=== PATIENT | male | born 1945 | race Caucasian/White ===

== ENCOUNTER 2016-02-09 19:49 | Observation (INO) | payer MEDICARE ==
[2016-02-09] MEDS ORDERED: SODIUM CHLORIDE 0.9% 1,000 ML IV STA (20:03)
--- NOTE | 2016-02-09 20:06 | ED ---
General Adult HPI - General Chief complaint: Weakness Stated complaint: LETHARGIC Time Seen by Provider: 02/09/16 19:58 Source: patient, EMS, RN notes reviewed Mode of arrival: EMS Limitations: no limitations - History of Present Illness Initial comments: Patient is a pleasant 70-year-old male presenting to emergency Department with generalized weakness. Symptoms have progressed over the past week or more. Patient feels fatigued. Patient has lack of energy. Patient feels slightly confused. Reportedly had concerns of slurred speech a couple of days ago as well as some problems with remembering time. No cough. No reported fever. No complaints of pain or isolated area of weakness. - Related Data Home Medications Medication Instructions Recorded Confirmed ALPRAZolam [Xanax] 0.5 mg PO TID PRN 05/30/15 02/09/16 Escitalopram [Lexapro] 20 mg PO DAILY 05/30/15 02/09/16 Gabapentin [Neurontin] 300 mg PO TID 05/30/15 02/09/16 Pantoprazole Sodium [Protonix] 40 mg PO DAILY 02/09/16 02/09/16 diphenhydrAMINE HCL [Benadryl] 25 mg PO DAILY PRN 02/09/16 02/09/16 Previous Rx's Medication Instructions Recorded Clopidogrel [Plavix] 75 mg PO DAILY #30 tab 06/01/15 Allergies Allergy/AdvReac Type Severity Reaction Status Date / Time adhesive Allergy Rash/Hives Verified 02/09/16 21:14 iodine Allergy Rash/Hives Verified 02/09/16 21:14 lansoprazole [From Prevacid] Allergy Unknown Verified 02/09/16 21:14 morphine Allergy Anaphylaxis Verified 02/09/16 21:14 Review of Systems ROS Statement: Those systems with pertinent positive or pertinent negative responses have been documented in the HPI. ROS Other: All systems not noted in ROS Statement are negative. Constitutional: Denies: fever Eyes: Denies: eye pain ENT: Denies: ear pain Respiratory: Denies: cough, dyspnea Cardiovascular: Denies: chest pain, palpitations Endocrine: Reports: fatigue Gastrointestinal: Denies: abdominal pain Genitourinary: Denies: dysuria Musculoskeletal: Denies: back pain Skin: Denies: rash Neurological: Reports: confusion. Denies: headache Past Medical History Past Medical History: Cancer, GERD/Reflux, Hypertension Additional Past Medical History / Comment(s): renal cell cancer, only has left kidney History of Any Multi-Drug Resistant Organisms: None Reported Additional Past Surgical History / Comment(s): right kidney removed, stent in bilateral legs Past Anesthesia/Blood Transfusion Reactions: No Reported Reaction Past Psychological History: Anxiety Smoking Status: Current every day smoker Past Alcohol Use History: None Reported Past Drug Use History: None Reported - Past Family History Father Family Medical History: No Reported History Mother Family Medical History: No Reported History General Exam Limitations: no limitations General appearance: alert, in no apparent distress Head exam: Present: atraumatic, normocephalic Eye exam: Present: normal appearance, PERRL, EOMI ENT exam: Present: normal oropharynx Neck exam: Present: normal inspection. Absent: tenderness, meningismus Respiratory exam: Present: normal lung sounds bilaterally Cardiovascular Exam: Present: regular rate, normal rhythm GI/Abdominal exam: Present: soft. Absent: tenderness Extremities exam: Present: normal inspection Back exam: Present: normal inspection Neurological exam: Present: alert, oriented X3, CN II-XII intact. Absent: motor sensory deficit Expanded Patient oriented to: Present: person, place, time Cranial nerves: EOM's Intact: Normal Motor strength exam: RUE: 5, LUE: 5, RLE: 5, LLE: 5 Eye Response: (4) open spontaneously Motor Response: (6) obeys commands Verbal Response: (5) oriented Psychiatric exam: Present: normal affect, normal mood Skin exam: Absent: rash Course Vital Signs 02/09/16 02/09/16 20:01 21:14 Temperature 99.2 F Pulse Rate 100 77 Respiratory 20 18 Rate Blood Pressure 115/56 115/62 O2 Sat by Pulse 99 96 Oximetry Medical Decision Making - Medical Decision Making Patient reexamined and resting comfortably in bed. is present and provides further history consistent with early reports. Patient and family updated on results and plan. Case discussed with Dr. Dixon, who will admit covering for Dr. Pretty. - Lab Data Result diagrams: 02/09/16 20:10 02/09/16 20:10 Lab Results 02/09/16 02/09/16 02/09/16 Range/Units 20:10 20:10 20:10 WBC 14.8 H (3.8-10.6) k/uL RBC 4.15 L (4.30-5.90) m/uL Hgb 13.3 (13.0-17.5) gm/dL Hct 40.3 (39.0-53.0) % MCV 97.0 (80.0-100.0) fL MCH 32.0 (25.0-35.0) pg MCHC 33.0 (31.0-37.0) g/dL RDW 13.6 (11.5-15.5) % Plt Count 284 (150-450) k/uL Neutrophils % 78 % Lymphocytes % 13 % Monocytes % 6 % Eosinophils % 2 % Basophils % 0 % Neutrophils # 11.6 H (1.3-7.7) k/uL Lymphocytes # 1.8 (1.0-4.8) k/uL Monocytes # 0.9 (0-1.0) k/uL Eosinophils # 0.3 (0-0.7) k/uL Basophils # 0.1 (0-0.2) k/uL PT (9.0-12.0) sec INR (<1.1) APTT (22.0-30.0) sec Sodium 140 (137-145) mmol/L Potassium 4.0 (3.5-5.1) mmol/L Chloride 108 H (98-107) mmol/L Carbon Dioxide 21 L (22-30) mmol/L Anion Gap 11 mmol/L BUN 21 H (9-20) mg/dL Creatinine 1.50 H (0.66-1.25) mg/dL Est GFR (MDRD) Af Amer 56 (>60 ml/min/1.73 sqM) Est GFR (MDRD) Non-Af 46 (>60 ml/min/1.73 sqM) Glucose 116 H (74-99) mg/dL Calcium 8.1 L (8.4-10.2) mg/dL Phosphorus 1.9 L (2.5-4.5) mg/dL Magnesium 1.8 (1.6-2.3) mg/dL Total Bilirubin 0.6 (0.2-1.3) mg/dL AST 21 (17-59) U/L ALT 20 L (21-72) U/L Alkaline Phosphatase 74 (38-126) U/L Total Creatine Kinase 33 L (55-170) U/L CK-MB (CK-2) <0.2 (0.0-2.4) ng/mL CK-MB (CK-2) Rel Index Troponin I <0.012 (0.000-0.034) ng/mL Total Protein 5.5 L (6.3-8.2) g/dL Albumin 3.1 L (3.5-5.0) g/dL TSH 1.430 (0.465-4.680) mIU/L Free T4 0.78 (0.78-2.19) ng/dL Free T3 pg/mL 3.2 (2.8-5.3) pg/ml Urine Color Urine Appearance (Clear) Urine pH (5.0-8.0) Ur Specific [place] (1.001-1.035) Urine Protein (Negative) Urine Glucose (UA) (Negative) Urine Ketones (Negative) Urine Blood (Negative) Urine Nitrate (Negative) Urine Bilirubin (Negative) Urine Urobilinogen (<2.0) mg/dL Ur Leukocyte Esterase (Negative) 02/09/16 02/09/16 Range/Units 20:10 21:45 WBC (3.8-10.6) k/uL RBC (4.30-5.90) m/uL Hgb (13.0-17.5) gm/dL Hct (39.0-53.0) % MCV (80.0-100.0) fL MCH (25.0-35.0) pg MCHC (31.0-37.0) g/dL RDW (11.5-15.5) % Plt Count (150-450) k/uL Neutrophils % % Lymphocytes % % Monocytes % % Eosinophils % % Basophils % % Neutrophils # (1.3-7.7) k/uL Lymphocytes # (1.0-4.8) k/uL Monocytes # (0-1.0) k/uL Eosinophils # (0-0.7) k/uL Basophils # (0-0.2) k/uL PT 10.8 (9.0-12.0) sec INR 1.1 (<1.1) APTT 24.8 (22.0-30.0) sec Sodium (137-145) mmol/L Potassium (3.5-5.1) mmol/L Chloride (98-107) mmol/L Carbon Dioxide (22-30) mmol/L Anion Gap mmol/L BUN (9-20) mg/dL Creatinine (0.66-1.25) mg/dL Est GFR (MDRD) Af Amer (>60 ml/min/1.73 sqM) Est GFR (MDRD) Non-Af (>60 ml/min/1.73 sqM) Glucose (74-99) mg/dL Calcium (8.4-10.2) mg/dL Phosphorus (2.5-4.5) mg/dL Magnesium (1.6-2.3) mg/dL Total Bilirubin (0.2-1.3) mg/dL AST (17-59) U/L ALT (21-72) U/L Alkaline Phosphatase (38-126) U/L Total Creatine Kinase (55-170) U/L CK-MB (CK-2) (0.0-2.4) ng/mL CK-MB (CK-2) Rel Index Troponin I (0.000-0.034) ng/mL Total Protein (6.3-8.2) g/dL Albumin (3.5-5.0) g/dL TSH (0.465-4.680) mIU/L Free T4 (0.78-2.19) ng/dL Free T3 pg/mL (2.8-5.3) pg/ml Urine Color Light Yellow Urine Appearance Clear (Clear) Urine pH 5.5 (5.0-8.0) Ur Specific [place] 1.006 (1.001-1.035) Urine Protein Negative (Negative) Urine Glucose (UA) Negative (Negative) Urine Ketones Negative (Negative) Urine Blood Negative (Negative) Urine Nitrate Negative (Negative) Urine Bilirubin Negative (Negative) Urine Urobilinogen <2.0 (<2.0) mg/dL Ur Leukocyte Esterase Negative (Negative) - Radiology Data Radiology results: image reviewed (Computed tomography scan of the brain shows no acute process. Two-view chest x-ray shows no acute process.) Disposition Clinical Impression: Weakness Disposition: ADMITTED IP TO THIS HOSP
[2016-02-09 20:25] LABS: Basophils # (A) 0.1 k/uL (0-0.2); Basophils % (A) 0 %; CH 31.4; CHCM 32.5; Eosinophils # (A) 0.3 k/uL (0-0.7); Eosinophils % (A) 2 %; HCT 40.3 % (39.0-53.0); HDW 2.44; HGB 13.3 gm/dL (13.0-17.5); Luc # (Auto) 0.17; Luc % (Auto) 1; Lymphocytes # (A) 1.8 k/uL (1.0-4.8); Lymphocytes % (A) 13 %; Mean Platelet Volume 6.4; Monocytes # (A) 0.9 k/uL (0-1.0); Monocytes % (A) 6 %; Neutrophils # (A) 11.6 k/uL (1.3-7.7); Neutrophils % (A) 78 %; RBC 4.15 m/uL (4.30-5.90); RDW 13.6 % (11.5-15.5); WBC 14.8 k/uL (3.8-10.6); WBC (Perox) 15.95
[2016-02-09 20:36] LABS: Calcium 8.1 mg/dL (8.4-10.2); Magnesium 1.8 mg/dL (1.6-2.3); Phosphorous 1.9 mg/dL (2.5-4.5); Total Bilirubin 0.6 mg/dL (0.2-1.3); Total Protein 5.5 g/dL (6.3-8.2)
[2016-02-09 20:38] LABS: INR 1.1 (<1.1); Partial Thromboplastin Time 24.8 sec (22.0-30.0); Prothrombin Time 10.8 sec (9.0-12.0)
--- NOTE | 2016-02-09 20:53 | CT ---
EXAMINATION TYPE: CT brain wo con DATE OF EXAM: 02/09/2016 8:50 PM COMPARISON: Prior head CT's May HISTORY: Weakness, slurred speech and left sided facial droop. CT DLP: 1047.10 mGycm Automated exposure control for dose reduction was used. FINDINGS: There is no acute intracranial hemorrhage, mass effect, or midline shift identified. Periventricular white matter shows patchy low attenuation is prior exam, there is age-related cortical atrophy. 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 There are cerebral vascular calcifications prese nt. The ventricles and sulci are within normal limits in size. The globes are intact and the visuali zed sinuses are clear. IMPRESSION: No acute intracranial hemorrhage, mass effect, or midline shift is seen.
[2016-02-09 20:55] LABS: Creatine Kinase 33 U/L (55-170)
--- NOTE | 2016-02-09 20:58 | XR ---
EXAMINATION TYPE: XR chest 2V DATE OF EXAM: 02/09/2016 8:51 PM COMPARISON: Prior chest x-ray May HISTORY: Weakness TECHNIQUE: Frontal and lateral views of the chest are obtained. FINDINGS: There is no focal air space opacity, pleural effusion, or pneumothorax seen. The cardiac silhouette size is within normal limits. There are overlying cardiac leads. Biapical pleural thickeni ng again noted. The osseous structures are intact. IMPRESSION: No acute cardiopulmonary process.
[2016-02-09 21:07] LABS: Creatine Kinase MB <0.2 ng/mL (0.0-2.4); Troponin I <0.012 ng/mL (0.000-0.034)
[2016-02-09 21:58] LABS: Appearance,Urine Clear (Clear); Bilirubin,Urine Negative (Negative); Glucose,Urine (UA) Negative (Negative); Ketones,Urine Negative (Negative); Leukocyte Esterase,Urine Negative (Negative); Nitrite,Urine Negative (Negative); PH, Urine 5.5 (5.0-8.0); Protein,Urine Negative (Negative); Specific Gravity,Urine 1.006 (1.001-1.035); UA Billing (MACRO vs. MICRO) CHEM; Urobilinogen,Urine <2.0 mg/dL (<2.0)
[2016-02-09] MEDS ORDERED: ACETAMINOPHEN TAB 325 MG TAB PO PRN (22:22)
[2016-02-09] MEDS ORDERED: NALOXONE 0.4 MG/ML 1 ML VIAL IV PRN (22:22)
[2016-02-10] MEDS: SODIUM CHLORIDE 0.9% 1,000 ML IV SCH ×2 (00:46→13:58)
[2016-02-10] MEDS: POTAS-SOD-PHOS 278-164-250 MG 1 EACH PACKET PO SCH ×4 (00:58→22:46)
[2016-02-10 02:38] LABS: Creatine Kinase 31 U/L (55-170)
[2016-02-10 02:51] LABS: Creatine Kinase MB <0.2 ng/mL (0.0-2.4); Troponin I <0.012 ng/mL (0.000-0.034)
[2016-02-10 07:25] VITALS: RESP 16
--- NOTE | 2016-02-10 08:12 | XR ---
EXAMINATION TYPE: XR chest 2V DATE OF EXAM: 02/10/2016 7:27 AM HISTORY: Weakness. REFERENCE: Previous study dated 02/09/2016. FINDINGS: The lungs are clear. Pleural spaces are clear. Heart size is normal. IMPRESSION: NO ACUTE INTRATHORACIC ABNORMALITY.
[2016-02-10] MEDS ORDERED: FAMOTIDINE 20 MG TAB PO SCH (09:00)
[2016-02-10 09:06] LABS: Basophils # (A) 0.1 k/uL (0-0.2); Basophils % (A) 1 %; CH 31.2; CHCM 31.6; Eosinophils # (A) 0.4 k/uL (0-0.7); Eosinophils % (A) 4 %; HCT 43.5 % (39.0-53.0); HDW 2.45; HGB 13.8 gm/dL (13.0-17.5); Luc # (Auto) 0.18; Luc % (Auto) 2; Lymphocytes # (A) 2.1 k/uL (1.0-4.8); Lymphocytes % (A) 19 %; MCH 31.5 pg (25.0-35.0); MCHC 31.7 g/dL (31.0-37.0); MCV 99.2 fL (80.0-100.0); Mean Platelet Volume 6.5; Monocytes # (A) 0.6 k/uL (0-1.0); Monocytes % (A) 5 %; Neutrophils # (A) 7.9 k/uL (1.3-7.7); Neutrophils % (A) 70 %; RBC 4.39 m/uL (4.30-5.90); RDW 13.7 % (11.5-15.5); WBC 11.3 k/uL (3.8-10.6); WBC (Perox) 11.47
[2016-02-10 09:34] LABS: Creatine Kinase 33 U/L (55-170)
[2016-02-10 09:42] LABS: Creatine Kinase MB 0.2 ng/mL (0.0-2.4); Troponin I <0.012 ng/mL (0.000-0.034)
[2016-02-10 09:47] LABS: Calcium 8.5 mg/dL (8.4-10.2); Potassium 4.6 mmol/L (3.5-5.1); Total Bilirubin 0.4 mg/dL (0.2-1.3); Total Protein 6.2 g/dL (6.3-8.2)
[2016-02-10] MEDS: PANTOPRAZOLE 40 MG TABLET PO SCH (17:25)
[2016-02-10] MEDS: CLOPIDOGREL 75 MG TAB PO SCH (17:25)
[2016-02-10] MEDS: ALPRAZolam 0.5 MG TAB PO PRN ×2 (17:25→22:47)
[2016-02-10] MEDS: ESCITALOPRAM 20 MG TAB PO SCH (17:25)
[2016-02-10] MEDS: GABAPENTIN 300 MG CAP PO SCH ×2 (17:25→22:46)
--- NOTE | 2016-02-10 17:43 | US ---
EXAMINATION TYPE: US carotid duplex BILAT DATE OF EXAM: 02/10/2016 5:00 PM COMPARISON: See PACS CLINICAL HISTORY: Slurred speech. EXAM MEASUREMENTS: RIGHT: Peak Systolic Velocity (PSV) cm/sec ----- Right CCA: 49.1 ----- Right ICA: 67.2 ----- Right ECA: 73.2 ICA/CCA ratio: 1.4 RIGHT: End Diastole cm/sec ----- Right CCA: 9.7 ----- Right ICA: 21.0 ----- Right ECA: 12.5 LEFT: Peak Systolic Velocity (PSV) cm/sec ----- Left CCA: 62.2 ----- Left ICA: 68.8 ----- Left ECA: 72.7 ICA/CCA ratio: 1.1 LEFT: End Diastole cm/sec ----- Left CCA: 12.8 ----- Left ICA: 21.0 ----- Left ECA: 11.6 VERTEBRALS (direction of flow): Right Vertebral: Antegrade Left Vertebral: Antegrade TECHNOLOGIST IMPRESSION: No elevated velocities IMPRESSION: There is antegrade flow in the vertebral arteries. The images and measurements suggest 20% stenosis in both internal carotid arteries. Criteria for Assigning % of Stenosis / Diameter reduction (Estimation based on the indirect measurements of the internal carotid artery velocities (ICA PSV). 1. Normal (no stenosis)=ICA PSV < 125 cm/s: ratio < 2.0: ICA EDV<40 cm/s. 2. Less than 50% stenosis=ICA PSV < 125 cm/s: ratio < 2.0: ICA EDV<40 cm/s. 3. 50 to 69% stenosis=ICA PSV of 125 to 230 cm/s: ration 2.0 ? 4.0: ICA EDV 40-100 cm/s. 4. Greater than 70% stenosis to near occlusion= ICA PSV > 230 cm/s: ratio > 4.0: ICA EDV > 100 cm/s. 5. Near occlusion= ICA PSV velocities may be low or undetectable: variable ratio and ICA EDV. 6. Total occlusion=unable to detect flow.
--- NOTE | 2016-02-10 18:48 | P.CNNES ---
History of Present Illness Consult date: 02/10/16 Reason for Consult: Patient with generalized weakness and slurred speech. History of Present Illness: This patient is a 70-year-old right-handed white male who was brought into the emergency room with symptoms of generalized weakness and slurred speech. Patient states that over the last week he has been having episodes of intermittent slurred speech with confusion. On several occasions he has had difficulty getting his words out. He does have a history of having had TIAs in the past. Apparently in July of this year he was evaluated for TIA and has been taking Plavix 75 mg daily ever since. Patient states he continues to have episodes of slurred speech off and on even since admission to the hospital. He was seen in the emergency room by Dr. Celeste and was sent for a computed tomography scan of the brain. CAT scan of the brain revealed no acute intracranial hemorrhage or stroke. He was admitted to hospital for further evaluation. Patient states that his speech seems to wax and wane. There are times where it becomes hard for him to get his words out. He also has history of underlying anxiety disorder for which she uses Xanax. Occasionally when he gets anxious the speech also seems to be impaired. He denies any focal weakness in the arms and legs at this time. He also has a history of underlying neuropathy and apparently uses Neurontin 3 times a day for management. The patient does have regular follow-up with his primary care physician. He was sent for carotid ultrasound which was completed today. There is 20% stenosis in both internal carotid arteries. This is not significant occlusion to cause TIA symptoms for the patient at this time. We reviewed the results of these tests with the patient in detail. We will continue close neurological follow-up for the patient during this admission. Neurology is now been consulted for further evaluation and recommendations. Review of Systems Constitutional: Denies chills, Denies fever Eyes: denies blurred vision, denies pain Ears, nose, mouth and throat: Denies headache, Denies sore throat Cardiovascular: Denies chest pain, Denies shortness of breath Respiratory: Denies cough Gastrointestinal: Denies abdominal pain, Denies diarrhea, Denies nausea, Denies vomiting Musculoskeletal: Denies myalgias Integumentary: Denies pruritus, Denies rash Neurological: Reports aphasia, Reports change in speech, Denies numbness, Denies weakness Psychiatric: Reports anxiety attacks, Denies anxiety, Denies depression Endocrine: Denies fatigue, Denies weight change Past Medical History Past Medical History: Cancer, GERD/Reflux, Hypertension Additional Past Medical History / Comment(s): renal cell cancer, only has left kidney History of Any Multi-Drug Resistant Organisms: None Reported Additional Past Surgical History / Comment(s): right kidney removed, stent in bilateral legs Past Anesthesia/Blood Transfusion Reactions: No Reported Reaction Past Psychological History: Anxiety Smoking Status: Former smoker Past Alcohol Use History: None Reported Past Drug Use History: None Reported - Past Family History Father Family Medical History: No Reported History Mother Family Medical History: No Reported History Medications and Allergies Home Medications Medication Instructions Recorded Confirmed Type ALPRAZolam [Xanax] 0.5 mg PO TID PRN 05/30/15 02/09/16 History Escitalopram [Lexapro] 20 mg PO DAILY 05/30/15 02/09/16 History Gabapentin [Neurontin] 300 mg PO TID 05/30/15 02/09/16 History Pantoprazole Sodium [Protonix] 40 mg PO DAILY 02/09/16 02/09/16 History diphenhydrAMINE HCL [Benadryl] 25 mg PO DAILY PRN 02/09/16 02/09/16 History Allergies Allergy/AdvReac Type Severity Reaction Status Date / Time adhesive Allergy Rash/Hives Verified 02/09/16 21:14 iodine Allergy Rash/Hives Verified 02/09/16 21:14 lansoprazole [From Prevacid] Allergy Unknown Verified 02/09/16 21:14 morphine Allergy Anaphylaxis Verified 02/09/16 21:14 Physical Examination - Vital Signs Vital Signs: Vital Signs Temp Pulse Pulse Resp BP BP BP 02/10/16 15:00 98.2 F 80 16 166/92 02/10/16 07:00 97.7 F 70 16 140/70 02/10/16 00:00 97.6 F 66 18 135/66 02/09/16 23:09 83 18 132/70 02/09/16 22:34 69 18 125/62 Pulse Ox 02/10/16 15:00 98 02/10/16 07:00 96 02/10/16 00:00 98 02/09/16 23:09 97 02/09/16 22:34 96 Intake and Output 02/10/16 02/10/16 02/10/16 06:59 14:59 22:59 Intake Total 600 Balance 600 Intake: IV 600 Sodium Chloride 0.9% 1, 600 000 ml @ 75 mls/hr IV . [id number] [facility] Rx#:[id number] Other: Voiding Method Toilet # Voids 2 - Constitutional General appearance: average body habitus, cooperative - EENT EENT: PERRL, mucous membranes moist - Respiratory Respiratory: lungs clear - Cardiovascular Cardiovascular: regular rate, normal S1, normal S2 Extremities: no peripheral edema bilaterally - Gastrointestinal Gastrointestinal: normoactive bowel sounds - Integumentary Integumentary: normal - Neurologic Cranial nerve examination: PERRL, EOMI, VFF, V1/V2/V3 grossly intact, face symmetric, tongue midline, intact gag reflex, intact corneal reflex, normal palatal elevation Speech examination: intact Sensorimotor examination: intact Detailed motor examination: grossly full strength in all extremities Detailed sensory examination: intact Reflex and gait examination: intact Reflexes: 1+: ankle, bicep, knee, tricep - Musculoskeletal Musculoskeletal: no pain - Psychiatric Psychiatric: mood/affect appropriate, cooperative Results - Laboratory Findings CBC and BMP: 02/10/16 08:09 02/10/16 08:09 Abnormal Lab Findings: Abnormal Labs 02/10/16 02/10/16 02/10/16 02:06 08:09 08:09 WBC 11.3 H Neutrophils # 7.9 H BUN 23 H Creatinine 1.48 H Total Creatine Kinase 31 L Total Protein 6.2 L Albumin 3.4 L 02/10/16 08:09 WBC Neutrophils # BUN Creatinine Total Creatine Kinase 33 L Total Protein Albumin Assessment and Plan (1) Anxiety disorder Status: Acute Code(s): F41.9 - ANXIETY DISORDER, UNSPECIFIED (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 Over the past 1 week he has had intermittent aphasia and slurring of his speech. This seems to be waxing and waning. He was admitted to hospital for a complete stroke evaluation. He underwent computed tomography scan of the brain which was negative for any acute stroke or hemorrhage. He underwent carotid Doppler ultrasound today which is negative for any significant carotid artery stenosis. Patient's neurological examination at this time is nonfocal. He is currently on Plavix 75 mg daily for secondary stroke prevention. We recommend he continue on this. If he continues to have speech impairment with mild aphasia we would suggest at one baby aspirin to the Plavix for dual platelet therapy. His neurological examination otherwise is nonfocal at this time. We'll continue close neurological follow-up for the patient during this admission. Time with Patient: Greater than 30
[2016-02-10] MEDS ORDERED: CARBIDOPA-LEVODOPA 25-100 MG 1 EACH TAB PO SCH (22:00)
[2016-02-10] MEDS: HEPARIN SODIUM,PORCINE 5,000 UNIT/ML 1 ML VIAL SQ SCH (22:46)
[2016-02-11] MEDS: SODIUM CHLORIDE 0.9% 1,000 ML IV SCH ×2 (02:22→15:43)
--- NOTE | 2016-02-11 07:56 | HP ---
DATE OF ADMISSION: I am covering for Dr. Dario Pretty. His chief complaints are change in mental status and slurring of speech. HISTORY OF PRESENT ILLNESS: This is a 70-year-old gentleman with a past medical history of multiple medical problems including GERD, hypertension, history of renal cancer, history of right kidney removal, anxiety, being followed by Dr. Dario Pretty in the outpatient setting, was complaining of some change in mental status, dizziness and generalized weakness for the last several days. Patient came to [facility], admitted for further evaluation and treatment. Patient had a multiple TIA in the past and Neurology evaluation per Dr. Kinney who is evaluating the patient. The patient also had multiple lab abnormalities on admission including possibility of renal failure and high WBC. No evidence of any specific infection has been sought at this time. Urine has been negative. Chest x-ray also has been showing no acute abnormality. PAST MEDICAL HISTORY: History of GERD, history of hypertension, history of renal cancer, right kidney surgery, history of anxiety. Medications prior to admission include: 1. Benadryl 25 mg daily p.r.n. 2. Protonix 40 mg daily. 3. Neurontin 300 mg t.i.d. 4. Lexapro 20 mg daily. 5. Plavix 75 mg daily. 6. Xanax 0.5 t.i.d. p.r.n. Allergies are ADHESIVE, IODINE, PREVACID, MORPHINE. FAMILY HISTORY: No history of heart disease or strokes in the family. SOCIAL HISTORY: The patient used to smoke, no history of current smoke or alcohol intake. REVIEW OF SYSTEMS: ENT: No diminished hearing or diminished vision. CARDIOVASCULAR: No angina. RESPIRATORY: No cough. GI: No nausea. : No dysuria. NERVOUS SYSTEM: No numbness or weakness. ALLERGY/IMMUNOLOGY: No asthma or hayfever. MUSCULOSKELETAL: As mentioned earlier. DERMATOLOGY: Negative. RHEUMATOLOGY: Negative. ENDOCRINE: No history of diabetes or hypothyroidism. CONSTITUTIONAL: As mentioned earlier. PSYCHIATRY: As mentioned earlier. PHYSICAL EXAM: Patient is alert and oriented x3. The pulse is 80, blood pressure 116/92, respirations 16, temperature 98.2, pulse ox 98% on room air. HEENT: Conjunctivae normal. NECK: No jugular venous distension. CARDIOVASCULAR: S1, S2, muffled. RESPIRATORY: Breath sounds diminished at the bases. A few scattered rhonchi, no crackles. Abdomen is soft, nontender. No mass palpable. EXTREMITIES: Legs no edema, no swelling. NERVOUS SYSTEM: Higher function as mentioned earlier. Moves all 4 limbs. Mild diffuse weakness. Tone is also increased. LYMPHATICS: No lymph node enlargement the neck, groin or axillae. SKIN: No ulcer, rash or bleeding. Labs are WBC is 14.8 improved to 11.3, creatinine is 1.50 and glucose is 116. ASSESSMENT: 1. Change in mental status, possible acute transient ischemic attack. 2. Rule out metabolic encephalopathy. 3. Increased WBC, possibly reactive, improving. 4. Increased creatinine with possibly mild acute renal failure. 5. Mild hypoalbuminemia. 6. Gait dysfunction with multiple transient ischemic attacks. 7. Rule out acute Parkinsonian syndrome. 8. Gastroesophageal reflux disease. 9. Hypertension. 10. History of renal cancer. 11. History of anxiety. RECOMMENDATION: In this 70-year-old gentleman who presented with multiple complex medical issues, will monitor the patient closely. Continue with the current medications, continue with the symptomatic treatment. Continue with IV fluids. I would also recommend repeat UA, recommend antiplatelet agents. The patient is currently on Plavix at this time. Recommend Sinemet if okay with Dr. Dr. Cochran as well as PT, OT evaluation. Guarded prognosis. Further recommendations to follow.
[2016-02-11] MEDS ORDERED: FAMOTIDINE 20 MG TAB PO SCH (09:00)
[2016-02-11] MEDS: ALPRAZolam 0.5 MG TAB PO PRN (09:37)
[2016-02-11] MEDS: POTAS-SOD-PHOS 278-164-250 MG 1 EACH PACKET PO SCH (10:09)
[2016-02-11] MEDS: ESCITALOPRAM 20 MG TAB PO SCH (10:10)
[2016-02-11] MEDS: GABAPENTIN 300 MG CAP PO SCH (10:10)
[2016-02-11] MEDS: PANTOPRAZOLE 40 MG TABLET PO SCH (10:10)
[2016-02-11] MEDS: HEPARIN SODIUM,PORCINE 5,000 UNIT/ML 1 ML VIAL SQ SCH (10:10)
[2016-02-11] MEDS: CLOPIDOGREL 75 MG TAB PO SCH (10:10)
--- NOTE | 2016-02-11 10:12 | ECHOF ---
Referral Reason:dizziness MEASUREMENTS -------- HEIGHT: 177.8 cm WEIGHT: 69.0 kg BP: 161/96 RVIDd: 3.3 cm (< 3.3) IVSd: 1.2 cm (0.6 - 1.1) LVIDd: 3.8 cm (3.9 - 5.3) LVPWd: 1.0 cm (0.6 - 1.1) IVSs: 1.8 cm LVIDs: 2.6 cm LVPWs: 1.7 cm LA Diam: 2.9 cm (2.7 - 3.8) LAESV Index (A-L): 27.36 ml/m Ao Diam: 3.4 cm (2.0 - 3.7) AV Cusp: 2.1 cm (1.5 - 2.6) MV EXCURSION: 15.228 mm (> 18.000) MV EF SLOPE: 103 mm/s (70 - 150) EPSS: 1.1 cm MV E Theo: 0.76 m/s MV DecT: 143 ms MV A Theo: 0.89 m/s MV E/A Ratio: 0.85 FINDINGS -------- Sinus rhythm. This was a technically good study. The left ventricular size is normal. There is borderline concentric left ventricular hypertrophy. Overall left ventricular systolic function is normal with, an EF between 60 - 65 %. The right ventricle is mildly enlarged. The left atrium is normal in size. Normal LA size by volume 22+/-6 ml/m2. The right atrium is normal in size. The aortic valve is trileaflet and appears structurally normal. There is mild aortic regurgitation. Mild mitral regurgitation is present. The tricuspid valve appears structurally normal. No regurgitation noted The pulmonic valve was not well visualized. The aortic root size is normal. Normal inferior vena cava with normal inspiratory collapse consistent with estimated right atrial pressure of 5 mmHg. There is no pericardial effusion. CONCLUSIONS -------- 1. Sinus rhythm. 2. There is mild aortic regurgitation. 3. Mild mitral regurgitation is present. 4. The tricuspid valve appears structurally normal. 5. No regurgitation noted 6. The pulmonic valve was not well visualized. 7. The aortic root size is normal. 8. Normal inferior vena cava with normal inspiratory collapse consistent with estimated right atrial pressure of 5 mmHg. 9. There is no pericardial effusion. 10. This was a technically good study. 11. The left ventricular size is normal. 12. There is borderline concentric left ventricular hypertrophy. 13. Overall left ventricular systolic function is normal with, an EF between 60 - 65 %. 14. The right ventricle is mildly enlarged. 15. Normal LA size by volume 22+/-6 ml/m2. 16. The right atrium is normal in size. 17. The aortic valve is trileaflet and appears structurally normal. STAMP MAKER: Radha Hurd RDCS
[2016-02-11] MEDS ORDERED: MULTIVITAMINS, THERA 1 EACH TAB PO SCH (12:00)
[2016-02-11] MEDS ORDERED: FOLIC ACID 1 MG TAB PO SCH (12:00)
[2016-02-11] MEDS ORDERED: THIAMINE 100 MG TAB PO SCH (12:00)
[2016-02-11 15:33] VITALS: BP 180/94; PULSE 82; TEMP 97.2
--- NOTE | 2016-02-12 14:54 | DS ---
DATE OF ADMISSION: 02/09/2016 DATE OF DISCHARGE: 02/11/2016 FINAL DIAGNOSES: 1. Generalized weakness and tiredness, possible acute transient ischemic attack. 2. Possible metabolic encephalopathy. 3. Increased WBC, possibly reactive, improved. 4. Anxiety. 5. Increased creatinine with possible mild acute renal failure. 6. Mild hypoalbuminemia. 7. Gait dysfunction with multiple transient ischemic attacks. 8. Parkinsonian features, unlikely Dr. Kinney. 9. Gastroesophageal reflux disease. 10. Hypertension. 11. History of renal cancer. 12. History of anxiety. 13. Gait dysfunction. 14. FULL CODE. DISCHARGE DISPOSITION: The patient will be discharged in stable condition with guarded prognosis. Discharge cleared by Dr. Kinney. HISTORY OF PRESENT ILLNESS: This 70-year-old gentleman with a past medical history of multiple medical problems including weakness and tiredness, possible transient ischemic attack was considered. Treated symptomatically. Antiplatelets given. The patient improved significantly. Neurovascular workup was negative. On exam, vitals are stable. CARDIOVASCULAR: S1, S2. ABDOMEN: Soft. NERVOUS SYSTEM: No focal deficits. DISCHARGE ADVICE: 1. Diet is cardiac. 2. Activity limited until follow up. 3. Follow up with Dr. Dario Pretty in 2 to 3 days. 4. Follow with Dr. Bessie Kinney as advised. MEDICATIONS: 1. Xanax 0.5 p.o. t.i.d. p.r.n. 2. Ecotrin 81 mg p.o. daily. 3. Plavix 75 mg p.o. daily. 4. Lexapro 20 mg daily. 5. Folic acid 1 mg. 6. Neurontin 300 mg t.i.d. 7. Multivitamin 1 p.o. daily. 8. Protonix 40 mg daily. 9. Thiamine 100 mg p.o. daily. 10. Stop Benadryl.
== END 2016-02-11 16:51 | disposition home or self-care (01) ==
LOC: EC 19:49 → INTOOBSV 22:22 → 4MS4W 22:22
PROVIDERS: ADMIT Internal Medicine; ATTEND Internal Medicine
DX: G45.9 Transient cerebral ischemic attack, unspecified (principal); R26.9 Unspecified abnormalities of gait and mobility; F41.9 Anxiety disorder, unspecified; E88.09 Other disorders of plasma-protein metabolism, not elsewhere classified; K21.9 Gastro-esophageal reflux disease without esophagitis; I10 Essential (primary) hypertension; Z85.528 Personal history of other malignant neoplasm of kidney; F17.200 Nicotine dependence, unspecified, uncomplicated; I69.920 Aphasia following unspecified cerebrovascular disease; R47.01 Aphasia; Z79.02 Long term (current) use of antithrombotics/antiplatelets; R53.1 Weakness; Z88.5 Allergy status to narcotic agent; Z88.8 Allergy status to other drugs, medicaments and biological substances
CPT/HCPCS: 99285; 96360; 96361 ×2; 36415; 93306; 97161; 84439; 84481; 80053 ×2; 82550 ×2; 82553 ×2; 83735; 84100; 84443; 84484 ×2; 85025 ×2; 85610; 85730; 81003; 87086; 71020 ×2; 93880; 70450; G0378 ×3; J1644 ×2; 96372

== ENCOUNTER → 2016-05-20 | Outpatient (CLI) | payer MEDICARE ==
--- NOTE | 2016-05-20 08:12 | US ---
EXAMINATION TYPE: US duplex aorta DATE OF EXAM: 05/20/2016 7:11 AM COMPARISON: NONE CLINICAL HISTORY: Z13.9 SCREENING FOR DISORDER. EXAM MEASUREMENTS: Abdominal Aorta: Proximal: 2.0 x 1.8 cm Mid: 1.5 x 1.8 cm Distal: 1.4 x 2.4 cm Bifurcation: Right- 0.8 x 0.9 cm Left- 0.7 x 0.9 cm No AAA visualized IMPRESSION: THIS EXAMINATION IS NEGATIVE FOR AORTIC ANEURYSM AT THIS TIME.
== END | disposition home or self-care (01) ==
LOC: RADUSWWP 06:46
PROVIDERS: ATTEND Family Medicine
DX: Z13.89 Encounter for screening for other disorder (principal)
CPT/HCPCS: 93979

== ENCOUNTER → 2016-08-03 | Outpatient (CLI) | payer MEDICARE ==
--- NOTE | 2016-08-03 12:57 | MR ---
EXAMINATION TYPE: MR brain wo/w con DATE OF EXAM: 08/03/2016 12:30 PM COMPARISON: NONE HISTORY: Parkinson's Disease TECHNIQUE: Multiplanar, multiecho imaging of the brain was obtained with and without intravenous adm inistration of 15 mL intravenous MultiHance. FINDINGS: Midline structures are unremarkable. There is a normal craniocervical junction. Echoplanar diffusion imaging demonstrates mildly restricted diffusion in the globus pallidus bilatera lly. There is mild, chronic mucoperiosteal thickening involving the ethmoid and frontal sinuses. The orbits are normal. There are normal vascular flow voids. There is diffuse and punctate periventricular white matter change compatible with a combination of sm all vessel disease and chronic ischemic change. There is no mass effect, midline shift or intracrania l blood. Following intravenous administration of gadolinium, I do not see evidence of abnormal enhancement. IMPRESSION: 1. SUBTLE RESTRICTED DIFFUSION IN THE GLOBUS PALLIDUS BILATERALLY. THE DIFFERENTIAL DIAGNOSIS FOR THI S FINDING IS LAST INCLUDING TOXIC EXPOSURE, I: HYPERGLYCEMIA. SEVERAL DEGENERATIVE CONDITION SUCH NEURODEGENERATION WITH BRAIN IRON ACCUMULATION AND CREUTZFELDT-HALI DISEASE CAN ALSO CAUSE THIS FIND ING. 2. BOTH PUNCTATE AND CONFLUENT PERIVENTRICULAR WHITE MATTER DISEASE LIKELY REPRESENTS A COMBINATION O F SMALL VESSEL DISEASE AND CHRONIC ISCHEMIC CHANGE. 3. MILD, CHRONIC MUCOPERIOSTEAL THICKENING INVOLVING THE ETHMOID AND FRONTAL SINUSES.
== END | disposition home or self-care (01) ==
LOC: RADMRIMAIN 11:00
PROVIDERS: ATTEND Psychiatry & Neurology Neurology
DX: A81.00 Creutzfeldt-Jakob disease, unspecified (principal); F45.8 Other somatoform disorders; R90.82 White matter disease, unspecified; R73.9 Hyperglycemia, unspecified; Z85.528 Personal history of other malignant neoplasm of kidney; Z13.89 Encounter for screening for other disorder
CPT/HCPCS: 82565; 70553; A9577

== ENCOUNTER → 2017-03-24 | Outpatient (CLI) | payer MEDICARE ==
--- NOTE | 2017-03-24 16:21 | NM ---
EXAMINATION TYPE: NM DatScan Brain SPECT DATE OF EXAM: 03/24/2017 COMPARISON: Correlation MRI brain 08/03/2016 HISTORY: 71-year-old male Parkinson's disease. TECHNIQUE: 10 drops of Lugol's solution was administered 1 hour prior to injection as a thyroid bloc yenny agent. After the administration of 4.74 mCi I-123 Ioflupane DaTscan. Images obtained 3 hours p ost injection. SPECT images of the brain were acquired with axial and coronal reconstructions. FINDINGS: The axial SPECT images demonstrate small and markedly blunted activity of the bilateral corpus striat a. IMPRESSION: Abnormal appearance highly suggestive of idiopathic Parkinson's disease or Parkinsonian syndrome.
== END | disposition home or self-care (01) ==
LOC: RADNMMAIN 10:05
PROVIDERS: ATTEND Psychiatry & Neurology Neurology
DX: G20 Parkinson's disease (principal)
CPT/HCPCS: 78607; A9584

== ENCOUNTER → 2017-04-10 | Outpatient (CLI) | payer MEDICARE ==
--- NOTE | 2017-04-10 21:59 | MR ---
EXAMINATION TYPE: MR lumbar spine wo con DATE OF EXAM: 04/10/2017 COMPARISON: NONE HISTORY: Low Back Pain with difficulty Walking per patient. Lumbar spine intervertebral disc degenera tion are ordered. TECHNIQUE: Multiplanar, multisequence imaging of the lumbar spine is performed without IV contrast. FINDINGS: Sagittal images of the lumbar spine show vertebral body heights and alignment to appear sat isfactory. Multilevel disc desiccation is seen. Disc space heights are fairly well-maintained. No lar ge posterior disc herniations are seen on sagittal images. The conus medullaris is normal in position and signal ending at mid L1 level. This area is diminished T1 and T2 signal involving the posterior superior L5 endplate of uncertain etiology, findings more prominent on T1-weighted images. Axial images at the T12-L1 level shows mild broad-based disc bulge mildly effaces the anterior thecal sac, bilateral neural foramina are patent. Axial images at L1-L2 level show mild broad disc bulge mildly effaces the anterior thecal sac/25, tracie ateral neural foramina are patent. Axial images at L2-L3 level show mild to moderate broad disc bulge with right extraforaminal disc pro trusion component and axial image 20. There is mild effacement of the anterior thecal sac. Bilateral neural foramina remain patent. Axial images at L3-L4 levels mild broad disc bulge with right foraminal disc protrusion component min imally effacing the anterior thecal sac. Right-sided neural foramina is mildly narrowed. Left-sided n eural foramen is patent. Axial images at L4-L5 levels and mild broad disc bulge and mild facet degenerative changes bilaterall y. There is mild effacement of the anterior thecal sac. There is mild right greater than left neural foraminal narrowing. Axial images at L5-S1 level shows central disc protrusion but the spinal canal is preserved and bilat eral neural foramina are patent. There are dependent small gallstones or gallbladder sludge in gallbladder. There is suspected asymmet jesika end-stage atrophy of the right kidney. There is some cortical thinning in the visualized right ki dney. There is partial visualization of believed subcentimeter simple cyst posteriorly left kidney ax ial image 18. IMPRESSION: Multilevel degenerative changes in lumbar spine as detailed above. Suspected end-stage at rophy of right kidney. If this is not known finding further investigation with renal ultrasound would be advised to confirm. Unusual appearance to posterior aspect superior L5 endplate, consider correla tion with plain films and/or CT to further evaluate this level.
== END | disposition home or self-care (01) ==
LOC: RADMRIMAIN 21:15
PROVIDERS: ATTEND Family Medicine
DX: M47.816 Spondylosis without myelopathy or radiculopathy, lumbar region (principal)
CPT/HCPCS: 72148

== ENCOUNTER → 2017-05-03 | Outpatient (CLI) | payer MEDICARE ==
--- NOTE | 2017-05-03 08:57 | CT ---
"EXAMINATION TYPE: CT abdomen pelvis wo con DATE OF EXAM: 05/03/2017 COMPARISON: NONE HISTORY: Right upper quadrant pain CT DLP: 791 mGycm Examination of the solid and hollow viscera is limited given the lack of contrast. FINDINGS: LUNG BASES: Partially imaged the pleural-based left lower lobe mass measuring at least 3.6 x 3.9 cm. Mass is suspicious for a neoplasm. CT of the chest is recommended for further evaluation. LIVER/GB: The gallbladder is unremarkable. No space-occupying hepatic lesion. PANCREAS: No pancreatic mass identified. No inflammatory process seen. SPLEEN: No evidence for splenomegaly. No intrasplenic lesions seen. ADRENALS: Suspicious left adrenal nodule measuring 2.4 x 2.0 cm. No right-sided adrenal nodules seen. KIDNEYS: Right-sided nephrectomy changes. Ill-defined 7 mm hypoattenuating lesion lower pole left ki dney is nonspecific. No nephrolithiasis. No hydronephrosis. BOWEL: Appendix has a normal appearance. No evidence of bowel obstruction. No inflammatory process. Lymph nodes: No evidence for adenopathy greater than 1 cm. Abdominal aorta: Atheromatous changes seen. No evidence for aneurysm. Genital organs: No significant abnormality. Other: Expansile left iliac lesion adjacent to the SI joint. Superior endplate mild compression fract ure of L5. 4 mm of bony retropulsion noted. Disc bulge is seen. Suspect bilateral lateral recess sten osis. IMPRESSION: 1.Partially imaged the pleural-based left lower lobe mass measuring at least 3.6 x 3.9 cm. Mass is phelps spicious for a neoplasm. CT of the chest is recommended for further evaluation. 2. Left adrenal nodule. Metastatic lesion is not excluded. 3. Expansile left iliac lesion. 4. Mild superior endplate compression fracture of L5. See above. A Yellow level critical message alert has been initiated for Ramila Nolan MD via the [employer] | Critical Results System on 05/03/2017 8:55 AM. This message alert has been sent to Ramila Fuller MD via the preferences provided by the clinician for the receipt of Radiology Critical Findi ngs. Message ID [id number]."
--- NOTE | 2017-05-03 09:22 | US ---
EXAMINATION TYPE: US gallbladder DATE OF EXAM: 05/03/2017 COMPARISON: NONE CLINICAL HISTORY: 71-year-old male R10.11 RUQ abdominal pain. 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 Technique: Multiple sonographic images of the right upper quadrant are obtained. FINDINGS: WELFARE SUPERVISOR NOTES: Extremely limited and difficult exam due to overlying bowel gas and patient's inab ility to turn onto his side or hold his breath. Liver Length: 11.7 cm Gallbladder Wall: 0.2 cm CBD: 0.4 cm Right Kidney: Surgically absent Pancreas: Obscured by bowel gas, visualized pancreatic body shows show no abnormality Liver: Limited visualization due to overlying bowel gas, visualized portions appears somewhat hypoec hoic with possible starry sharon appearance. Gallbladder: wnl as visualized, limited visualization due to overlying bowel gas Evidence for sonographic Carey's sign: No CBD: wnl as visualized, distal portion is obscured by bowel gas Right Kidney: Surgically absent IMPRESSION: 1. Technical limitations as above. 2. Somewhat hypoechoic appearance to the liver with possible starry sharon appearance. Correlate to excl ude hepatitis. 3. Status post right nephrectomy.
--- NOTE | 2017-05-05 15:19 | P.PN ---
Progress Note - Text Progress Note Date: 05/05/[address] of the abdomen pelvis was reviewed. Findings highly suspicious for a lung malignancy with metastases. I contacted the patient's primary care doctor Dr. Dario Pretty and spoke with Ashley as Dr. Pretty is out of town. Findings of possible lung cancer reviewed. Patient will follow-up with his primary care provider. Otherwise no gallstones identified. Message left on patient's phone to follow with primary care provider for additional workup.
== END | disposition home or self-care (01) ==
LOC: RADUSMAIN 07:51
PROVIDERS: ATTEND Surgery Plastic and Reconstructive Surgery
DX: E27.8 Other specified disorders of adrenal gland (principal); Z90.5 Acquired absence of kidney
CPT/HCPCS: 74176; 76705

== ENCOUNTER → 2017-05-10 | Outpatient (CLI) | payer MEDICARE ==
--- NOTE | 2017-05-11 09:30 | CT ---
"EXAMINATION TYPE: CT chest wo con DATE OF EXAM: 05/10/2017 COMPARISON: NONE HISTORY: Abnormal finding of lung CT DLP: 627 mGycm. Automated Exposure Control for Dose Reduction was Utilized. TECHNIQUE: CT scan of the thorax is performed without IV contrast. FINDINGS: LUNGS: There is biapical pleural-parenchymal nodular thickening. Mild to moderate centrilobular emphy sematous changes are appreciated. There is a 4.3 x 3.8 cm multilobulated left lower lobe pulmonary ma ss with associated adjacent 6 mm satellite nodule directly posterior medially. Surrounding groundglas s opacity likely represents atelectasis. Calcified granuloma is noted within the left upper lobe. Par aseptal bleb is seen medially within the left upper lobe. Linear nodular opacity within the right upp er lobe on series 4 image 17 measures 6 mm and is favored to represent scarring rather than a true pu lmonary nodule given its linear morphology. Additional linear area of scarring is seen within the rig ht middle lobe on image 38. Right basilar subsegmental atelectasis is identified. Main tracheobronchi al tree is patent. MEDIASTINUM: Lack of IV contrast is noted to limit evaluation for mediastinal and especially hilar ad enopathy. Centrally necrotic 1.6 cm short axis left infrahilar probable lymph node is seen adjacent t o pulmonary vasculature. Within the remainder of the mediastinum there are no definitive greater than 1 cm hilar or mediastinal lymph nodes. No cardiomegaly or pericardial effusion is seen. Ascending thoracic aorta is within normal limits of size measuring 3.4 cm. OTHER: The right kidney is surgically absent and surgical clips are seen within the right retroperito neum. There is a 2.7 cm indeterminate left adrenal gland nodule. Descending duodenal diverticulum is also noted. Moderate atheromatous changes of the abdominal aorta seen. Mild multilevel degenerative c hanges of thoracic spine are noted. IMPRESSION: 1. 4.3 x 3.8 cm left lower lobe pulmonary mass with adjacent 6 mm satellite nodule that should be con sidered neoplasm until proven otherwise. Percutaneous biopsy and/or PET CT could be performed for def initive diagnosis. 2. Left infrahilar adenopathy suspicious for malignant adenopathy. No contralateral or supraclavicula r adenopathy. 3. 2.7 cm indeterminate left adrenal gland nodule. Further characterization with adrenal mass protoco l CT abdomen or MR could be performed. A Yellow level critical message alert has been initiated for Dario Pretty MD via the [employer] | Critical Results System on 05/11/2017 9:27 AM. This message alert has been sent to Dario Pretty MD via the preferences provided by the clinician for the receipt of Radiology Critical Findings. Mess age ID [id number]."
== END | disposition home or self-care (01) ==
LOC: RADCTMAIN 18:22
PROVIDERS: ATTEND Family Medicine
DX: R91.8 Other nonspecific abnormal finding of lung field (principal); R59.0 Localized enlarged lymph nodes; Z88.5 Allergy status to narcotic agent; Z91.041 Radiographic dye allergy status
CPT/HCPCS: 71250

== ENCOUNTER 2017-05-16 11:10 | Inpatient (IN) | payer MEDICARE ==
[2017-05-16] MEDS ORDERED: SODIUM CHLORIDE 0.9% 1,000 ML IV STA (12:19)
[2017-05-16 12:57] LABS: Basophils % (A) 0 %; Eosinophils % (A) 0 %; HCT 41.5 % (39.0-53.0); HGB 13.9 gm/dL (13.0-17.5); Lymphocytes # (A) 0.8 k/uL (1.0-4.8); Lymphocytes % (A) 8 %; MCH 30.4 pg (25.0-35.0); MCHC 33.5 g/dL (31.0-37.0); MCV 90.8 fL (80.0-100.0); Mean Platelet Volume 6.8; Monocytes # (A) 0.5 k/uL (0-1.0); Monocytes % (A) 5 %; Neutrophils # (A) 8.6 k/uL (1.3-7.7); Neutrophils % (A) 86 %; Platelet Count 302 k/uL (150-450); RBC 4.57 m/uL (4.30-5.90); RDW 13.8 % (11.5-15.5)
[2017-05-16 13:04] LABS: INR 1.1 (<1.2); Ionized Calcium 5.1 mg/dL (4.5-5.3); Partial Thromboplastin Time 23.6 sec (22.0-30.0); Prothrombin Time 10.5 sec (9.0-12.0)
[2017-05-16 13:12] LABS: Albumin 3.4 g/dL (3.5-5.0); Phosphorus 2.2 mg/dL (2.5-4.5); Potassium 4.5 mmol/L (3.5-5.1); Total Bilirubin 0.8 mg/dL (0.2-1.3); Total Protein 6.1 g/dL (6.3-8.2)
[2017-05-16 13:16] LABS: Creatine Kinase 34 U/L (55-170)
[2017-05-16 13:17] LABS: Appearance,Urine Clear (Clear); Bilirubin,Urine Negative (Negative); Blood,Urine Negative (Negative); Color,Urine Yellow; Glucose,Urine (UA) Negative (Negative); Ketones,Urine Negative (Negative); Leukocyte Esterase,Urine Negative (Negative); Nitrite,Urine Negative (Negative); PH, Urine 5.5 (5.0-8.0); Protein,Urine Negative (Negative); Specific Gravity,Urine 1.012 (1.001-1.035)
[2017-05-16 13:29] LABS: Creatine Kinase MB 0.5 ng/mL (0.0-2.4); Troponin I <0.012 ng/mL (0.000-0.034)
--- NOTE | 2017-05-16 13:38 | CT ---
EXAMINATION TYPE: CT brain wo con DATE OF EXAM: 05/16/2017 COMPARISON: 03/07/2016 HISTORY: Altered mental status CT DLP: 1017.[address] of the brain was performed. The ventricles, basal cisterns and sulci overlying the cerebral convexities demonstrate mild enlargem ent. There is no evidence for intracranial hemorrhage. Vasogenic edema within the left parietal-occipital region with underlying mass noted on image 23 suzy uring 1.7 cm. Additional area of decreased attenuation posterior right gaffney radiata could reflect a dditional vasogenic edema. Recommend MRI for evaluation of metastatic disease. There is decreased attenuation about the periventricular white matter and deep white matter of both c erebral hemispheres, compatible with chronic small vessel ischemia. Differential diagnosis does inclu de demyelination. No midline shift. Osseous calvarium is intact. IMPRESSION: 1. Findings compatible with metastatic disease with at least one lesion visualized. Recommend MRI for further characterization and to evaluate for additional lesions.
--- NOTE | 2017-05-16 14:57 | XR ---
EXAMINATION TYPE: XR ribs RT w pa chest xray DATE OF EXAM: 05/16/2017 COMPARISON: 11/28/2016 HISTORY: 71-year-old male right-sided rib and back pain TECHNIQUE: PA and lateral views FINDINGS: Mild diffuse interstitial prominence is unchanged. Heart remains upper limits of normal in size. Biap ical pleural parenchymal scarring. No consolidation, pneumothorax, or pleural effusion. No displaced right rib fracture seen. Multiple surgical clips in the right upper quadrant. Patient's known left lower lobe mass is subtly apparent. IMPRESSION: 1. Patient's known left lower lobe mass is subtly apparent in the retrocardiac region. 2. Chronic changes without acute cardiopulmonary process seen. 3. No displaced right rib fracture identified.
--- NOTE | 2017-05-16 14:59 | XR ---
EXAMINATION TYPE: XR thoracic spine 2V DATE OF EXAM: 05/16/2017 COMPARISON: None HISTORY: 71-year-old male right-sided rib and back pain TECHNIQUE: 4 views FINDINGS: Leftward truncal shift. 12 rib-bearing thoracic vertebral bodies. All pedicles are visualized. There is a moderate vertebral compression deformity along the lower thoracic spine which is new as compared to 05/10/2017 probably involving T11. IMPRESSION: New moderate vertebral compression deformity of a lower thoracic vertebral body, probably T11. This i s new as compared to the CT of 05/10/2017. Osteoporotic, posttraumatic, and pathologic fractures are al l in the differential.
[2017-05-16] MEDS ORDERED: KETOROLAC 30 MG/ML 1 ML VIAL IVP STA (15:40)
[2017-05-16] MEDS ORDERED: DEXAMETHASONE SOD PHOSPHATE 10 MG/ML 1 ML VIAL IV STA (15:40)
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
[2017-05-16] MEDS ORDERED: ACETAMINOPHEN TAB 325 MG TAB PO PRN (15:41)
[2017-05-16] MEDS ORDERED: NALOXONE 0.4 MG/ML 1 ML VIAL IV PRN (15:41)
[2017-05-16] MEDS ORDERED: ONDANSETRON 4 MG/2 ML VIAL IVP PRN (15:41)
[2017-05-16] MEDS: ATORVASTATIN 40 MG TAB PO SCH (20:04)
[2017-05-16] MEDS: PRAMIPEXOLE 0.5 MG TAB PO SCH ×2 (20:04→22:27)
[2017-05-16] MEDS: GABAPENTIN 300 MG CAP PO SCH ×2 (20:04→22:26)
[2017-05-16] MEDS: CYCLOBENZAPRINE 5 MG TAB PO SCH (20:05)
[2017-05-16] MEDS: MEMANTINE 10 MG TAB PO SCH (20:05)
[2017-05-16] MEDS: DEXAMETHASONE SOD PHOSPHATE 4 MG/ML 1 ML VIAL IV SCH (23:33)
[2017-05-17] MEDS: DEXAMETHASONE SOD PHOSPHATE 4 MG/ML 1 ML VIAL IV SCH ×3 (05:37→17:51)
[2017-05-17] MEDS: CYCLOBENZAPRINE 5 MG TAB PO SCH ×2 (08:46→20:15)
[2017-05-17] MEDS: FERROUS SULFATE 325 MG TAB PO SCH (08:46)
[2017-05-17] MEDS: ESCITALOPRAM 20 MG TAB PO SCH (08:46)
[2017-05-17] MEDS: PANTOPRAZOLE 40 MG TABLET PO SCH (08:47)
[2017-05-17] MEDS: GABAPENTIN 300 MG CAP PO SCH ×3 (08:47→22:36)
[2017-05-17] MEDS: MEMANTINE 10 MG TAB PO SCH ×2 (08:47→20:15)
[2017-05-17] MEDS: PRAMIPEXOLE 0.5 MG TAB PO SCH ×3 (08:47→22:36)
[2017-05-17] MEDS ORDERED: ASPIRIN 81 MG PO SCH (09:00)
[2017-05-17] MEDS ORDERED: ENOXAPARIN 40 MG/0.4 ML SYRINGE SQ SCH (09:00)
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
--- NOTE | 2017-05-17 12:41 | P.CNPUL ---
History of Present Illness Consult date: 05/17/17 Requesting physician: Dario Pretty Reason for consult: abnormal CXR/CT Chief complaint: Hallucinations, fall History of present illness: This is a very pleasant 71-year-old gentleman who follows with Dr. Pretty as his primary care physician. He has a history of dementia, Parkinson's disease, hyperlipidemia, hypertension, right renal cell cancer with nephrectomy status post chemo/radiation, anemia, peripheral vascular disease with bilateral stents , CVA/TIA. He was also found to have an abnormal chest x-ray in the outpatient setting and subsequent computed tomography scan of the chest that revealed a 4.3 x 3.8 cm left lower lobe pulmonary mass with adjacent 6 mm satellite nodule suspicious for neoplasm. There is also a left infrahilar adenopathy and a 2.7 cm indeterminate left adrenal gland nodule. The patient was scheduled to see Dr. Hilliard in our office for a possible biopsy of the left lower lobe lung mass. However, yesterday the patient started having hallucinations and unsteady gait. His heard a sudden and found him on the floor but did not actually see him fall. He was brought here to the emergency room for further evaluation. Chest x-ray revealed evidence of the left lower lobe mass, chronic changes but no acute cardiopulmonary process. There is no displaced rib fractures identified. A computed tomography scan of the brain revealed vasogenic edema with the left parietaloccipital region underlying mass measuring 1.7 cm. There is also additional areas of decreased attenuation posterior right gaffney radiata reflecting an additional vasogenic edema. MRI is recommended for further characterization and evaluate for additional lesions. He has been initiated on Decadron. The patient is seen today in consultation on the oncology unit. He is awake and alert. He is somewhat slow to respond but is answering most questions appropriately. He is confused to place and his current situation. He is maintaining good O2 saturations in the upper 90s on room air. His been afebrile. Hemodynamically stable. White count 10.0. Hemoglobin 13.9. Creatinine 1.15. Ionized calcium measures 5.1. Review of Systems ROS unobtainable: due to mental status Past Medical History Past Medical History: No Reported History, Cancer, CVA/TIA, GERD/Reflux, Hyperlipidemia, Hypertension, Memory Impairment, Musculoskeletal Disorder, Neurologic Disorder, Vascular Disorder Additional Past Medical History / Comment(s): Right renal cell cancer with nephrectomy/chemo and radiation, anemia, TIA, PVD, parkinsons dx. History of Any Multi-Drug Resistant Organisms: None Reported Additional Past Surgical History / Comment(s): right nephrectomy, stent in bilateral legs, colonoscopy but not complete due to structure issue.egd/bx Past Anesthesia/Blood Transfusion Reactions: No Reported Reaction Additional Past Anesthesia/Blood Transfusion Reaction / Comment(s): Pt has had blood transfusions in the past and recently without reaction. Smoking Status: Former smoker - Past Family History Father Family Medical History: No Reported History Mother Family Medical History: Myocardial Infarction ([place]) Medications and Allergies Home Medications Medication Instructions Recorded Confirmed Type Escitalopram [Lexapro] 20 mg PO DAILY 05/30/15 05/16/17 History Gabapentin [Neurontin] 300 mg PO TID 05/30/15 05/16/17 History Pantoprazole Sodium [Protonix] 40 mg PO DAILY 02/09/16 05/16/17 History Aspirin EC [Ecotrin Low Dose] 81 mg PO DAILY #30 tablet. 02/11/16 05/16/17 Rx ALPRAZolam [Xanax] 0.25 mg PO TID PRN 11/28/16 05/16/17 History Ferrous Sulfate [Iron (65 MG 325 mg PO DAILY 11/28/16 05/16/17 History Elemental)] Atorvastatin [Lipitor] 40 mg PO HS 05/16/17 05/16/17 History Cyclobenzaprine HCl 5 mg PO BID 05/16/17 05/16/17 History Memantine [Namenda] 10 mg PO BID 05/16/17 05/16/17 History Pramipexole [Mirapex] 0.5 mg PO TID 05/16/17 05/16/17 History Allergies Allergy/AdvReac Type Severity Reaction Status Date / Time adhesive Allergy Rash/Hives Verified 05/16/17 11:31 iodine Allergy Rash/Hives Verified 05/16/17 11:31 lansoprazole [From Prevacid] Allergy Unknown Verified 05/16/17 11:31 morphine Allergy Anaphylaxis Verified 05/16/17 11:31 Physical Exam Vitals: Vital Signs Temp Pulse Pulse Resp BP BP Pulse Ox 05/17/17 09:26 97 05/17/17 07:00 98 F 97 18 140/83 99 05/16/17 23:00 98.9 F 97 16 156/89 91 L 05/16/17 18:43 100.5 F H 99 18 166/78 05/16/17 16:56 98 18 162/80 99 05/16/17 15:37 98.5 F 98 18 162/76 99 Intake and Output 05/16/17 05/17/17 05/17/17 22:59 06:59 14:59 Intake Total 1160 Balance 1160 Intake: Intake, IV Titration 800 Amount Sodium Chloride 0.9% 1, 800 000 ml @ 100 mls/hr IV . Q10H STA Rx#:[id number] Oral 360 Other: Voiding Method Urinal Urinal # Voids 4 GENERAL EXAM: Alert, active, comfortable in no apparent distress. HEAD: Normocephalic. EYES: Normal reaction of pupils, equal size. NOSE: Clear with pink turbinates. THROAT: No erythema or exudates. NECK: No masses, no JVD. CHEST: No chest wall deformity. LUNGS: Equal air entry with no crackles, wheeze, rhonchi or dullness. CVS: S1 and S2 normal with no audible murmur, regular rhythm. ABDOMEN: No hepatosplenomegaly, normal bowel sounds, no guarding or rigidity. SPINE: No scoliosis or deformity SKIN: No rashes CENTRAL NERVOUS SYSTEM: No focal deficits, tone is normal in all 4 extremities. EXTREMITIES: There is no peripheral edema. No clubbing, no cyanosis. Peripheral pulses are intact. Results - Laboratory Findings CBC and BMP: 05/16/17 12:31 05/16/17 12:31 PT/INR, D-dimer PT 10.5 sec (9.0-12.0) 05/16/17 12:31 INR 1.1 (<1.2) 05/16/17 12:31 Abnormal lab findings: Abnormal Labs 05/16/17 05/16/17 05/16/17 12:31 12:31 12:31 Neutrophils # 8.6 H Lymphocytes # 0.8 L BUN 21 H Phosphorus 2.2 L Alkaline Phosphatase 131 H Total Creatine Kinase 34 L Total Protein 6.1 L Albumin 3.4 L - Diagnostic Findings Chest x-ray: image reviewed CT scan - chest: image reviewed Assessment and Plan Assessment: Impression: #1 Altered mental status with hallucinations and unsteady gait secondary to Parkinson's dementia as well as vasogenic edema within the left parietal- occipital region and a noted underlying mass measuring 1.7 cm. There is also decreased attenuation in the posterior right gaffney radiata reflecting an additional vasogenic edema. Suspect metastatic disease. #2 Status post fall without significant injury or fracture. #3 Left lower lobe pulmonary mass measuring 4.3 x 3.8 cm with adjacent 6 mm satellite nodule suspicious for neoplasm. There is also left infrahilar adenopathy suspicious for malignancy. #4 Left adrenal gland nodule measuring 2.7 cm. #5 History of renal cell carcinoma with previous right nephrectomy and status post chemo/radiation. #6 Parkinson's disease. #7 Dementia. #8 Hyperlipidemia. #9 Hypertension. #10 Peripheral vascular disease with bilateral stent placements in the lower extremities. #11 History of CVA/TIA. #12 Gastroesophageal reflux disease. Plan: The patient was seen and evaluated by Dr. Philippe. Computed tomography scan was reviewed. We will go ahead and plan for a navigational bronchoscopy and biopsy of the left lower lobe lung mass for definitive diagnosis. He did speak with the on the phone who is in agreement. In the interim we'll continue with his current medications. Continue IV Decadron. Hold Lovenox and aspirin. We will continue to follow and make further recommendations based on his clinical status. I, the cosigning physician, performed a history & physical examination of the patient. Lungs sounds are clear. Maintaining good O2 saturations in the 90s on room air. I discussed the assessment and plan of care with my nurse practitioner, Amy Leary. I attest to the above note as dictated by her. Time with Patient: Greater than 30
[2017-05-17 14:50] VITALS: BMI 23.7
--- NOTE | 2017-05-17 15:20 | P.CNOR ---
History of Present Illness - [facility] Consult date: 05/17/17 Requesting physician: Ashley Whiteside Consult reason: fracture (Acute T11 compression fracture deformity status post fall possibly metastatic or osteoporotic), back pain (Thoracic back pain) History of present illness: Patient is a very pleasant 71-year-old male who is seen at the bedside for further evaluation after consultation was placed for further evaluation of an acute T11 compression fracture deformity. Patient was admitted to the hospital yesterday, 05/16/2017. Patient states he did sustain a fall a couple days ago and has had ongoing thoracic back pain since that time. He states he was not experiencing any back pain prior to that fall. He denies any lower extremity radiculopathy or weakness bilaterally. Patient has a history of recent diagnosed lung mass and has undergone multiple imaging modalities. CT results of the brain taken yesterday states the findings are compatible with brain metastasis and recommend a brain MRI. Patient is being seen and examined by medicine and pulmonology. ER documentation states patient has been having some hallucinations with weakness and difficulty with ambulation. These symptoms have had rapid onset. Patient does have a history of Parkinson's disease along with rapidly progressing dementia over the past month. Patient does admit he has a lack of appetite. Documentation states he has lost 13 pounds over the past month. Patient is awake and alert at the bedside and is answering questions appropriately. He does admit he is unsure where he is and he does not know the year he was born. He does know his name and the month and date of . He currently has a hospital employee sitting with him in his room. Pulmonology dictation states patient does have a history of right renal cell cancer with nephrectomy status post chemo/radiation. Patient was originally scheduled to follow-up with Dr. Hilliard for possible biopsy of the left lower lobe lung mass. Following the patient's hallucinations along with unsteady gait and fall, he was brought to the emergency department for further evaluation. Pulmonology is planning for navigational bronchoscopy and pry up CT of the left lower lung mass for definitive diagnosis. Patient is currently receiving IV Decadron Past Medical History Past Medical History: No Reported History, Cancer, CVA/TIA, GERD/Reflux, Hyperlipidemia, Hypertension, Memory Impairment, Musculoskeletal Disorder, Neurologic Disorder, Vascular Disorder Additional Past Medical History / Comment(s): Right renal cell cancer with nephrectomy/chemo and radiation, anemia, TIA, PVD, parkinsons dx. History of Any Multi-Drug Resistant Organisms: None Reported Additional Past Surgical History / Comment(s): right nephrectomy, stent in bilateral legs, colonoscopy but not complete due to structure issue.egd/bx Past Anesthesia/Blood Transfusion Reactions: No Reported Reaction Additional Past Anesthesia/Blood Transfusion Reaction / Comm: Pt has had blood transfusions in the past and recently without reaction. Smoking Status: Former smoker - Past Family History Father Family Medical History: No Reported History Mother Family Medical History: Myocardial Infarction ([place]) Medications and Allergies Home Medications Medication Instructions Recorded Confirmed Type Escitalopram [Lexapro] 20 mg PO DAILY 05/30/15 05/16/17 History Gabapentin [Neurontin] 300 mg PO TID 05/30/15 05/16/17 History Pantoprazole Sodium [Protonix] 40 mg PO DAILY 02/09/16 05/16/17 History Aspirin EC [Ecotrin Low Dose] 81 mg PO DAILY #30 tablet. 02/11/16 05/16/17 Rx ALPRAZolam [Xanax] 0.25 mg PO TID PRN 11/28/16 05/16/17 History Ferrous Sulfate [Iron (65 MG 325 mg PO DAILY 11/28/16 05/16/17 History Elemental)] Atorvastatin [Lipitor] 40 mg PO HS 05/16/17 05/16/17 History Cyclobenzaprine HCl 5 mg PO BID 05/16/17 05/16/17 History Memantine [Namenda] 10 mg PO BID 05/16/17 05/16/17 History Pramipexole [Mirapex] 0.5 mg PO TID 05/16/17 05/16/17 History Allergies Allergy/AdvReac Type Severity Reaction Status Date / Time adhesive Allergy Rash/Hives Verified 05/16/17 11:31 iodine Allergy Rash/Hives Verified 05/16/17 11:31 lansoprazole [From Prevacid] Allergy Unknown Verified 05/16/17 11:31 morphine Allergy Anaphylaxis Verified 05/16/17 11:31 Physical Examination Physical exam: Patient is awake and alert and answers most questions appropriately; he is unsure where he is or the year he was born Vital signs stable Good chest excursion with deep inspiration and expiration Abdomen soft Examination of lumbar spine reveals skin is intact with no abrasions, lacerations or bruises; no erythema, purulence or signs of infection Significant pain with palpation of the lower thoracic spine along the midline No significant pain on palpation of the lower lumbar spine Dorsiflexion, plantarflexion, and extensor hallucis longus positive sustained bilaterally Patient able to perform bilateral hip flexion but movements are somewhat slow Patient is able to lift legs off the bed independently but somewhat slowly No lower extremity hyperreflexia bilaterally No signs or symptoms of DVT; no calf pain No pain with internal and external rotation of the hips bilaterally Neurovascularly intact Results Pertinent studies: X-rays of the thoracic spine taken on 05/16/2017: Evidence of acute T11 compression fracture deformity with approximately 40% height loss that is new as compared to recent CT taken on 05/10/2017 in which osteoporotic, posttraumatic, pathologic fractures are all in the differential CT of the brain taken on 05/16/2017: Findings compatible with metastatic disease with at least one lesion visualized; recommend MRI for further evaluation to evaluate for additional lesions CT of the chest taken on 05/10/2017: 4.3 cm x 3.8 cm left lower lobe pulmonary mass with adjacent 6 mm satellite nodule that should be considered neoplasm until proven otherwise; left infrahilar abnormality suspicious for malignant adenopathy; 2.7 cm indeterminate left adrenal gland nodule CT the abdomen and pelvis taken on 05/03/2017: Partially image pleural-based left lower lobe mass measuring at least 3.6 cm x 3.9 cm in which mass is suspicious for neoplasm; mild superior endplate compression fracture of L5 left adrenal nodule in which metastatic lesion is not excluded; expansile left iliac lesion Lumbar MRI taken on 04/10/2017: Diminished T1 and T2 signal involving the posterior superior L5 endplate of uncertain etiology; T12-L1, , L1-2, now 23 broad-based disc bulging; L3-4 broad-based disc bulge with white foraminal protrusion resulting in right neural foraminal narrowing; L4-5 broad-based disc bulging and facet degenerative changes resulting in mild effacement of the thecal sac and bilateral neural foraminal narrowing greater on the right and left; L5-S1 central disc protrusion - Labs Labs: H & H 05/16/17 Range/Units 12:31 Hgb 13.9 (13.0-17.5) gm/dL Hct 41.5 (39.0-53.0) % Coagulation 05/16/17 Range/Units 12:31 INR 1.1 (<1.2) Result Diagrams: 05/16/17 12:31 05/16/17 12:31 Assessment and Plan Assessment: Assessment: Acute T11 compression fracture deformity status post fall Acute thoracic back pain L5 superior endplate compression fracture deformity Left lower lobe pulmonary mass suspicious for neoplasm along with left infrahilar adenopathy also suspicious for malignancy Brain lesion compatible with metastatic disease with recommendations of Brain MRI for further evaluation Recent hallucinations and difficulty with ambulation Parkinson's disease History of renal cell carcinoma with previous right nephrectomy and status post chemo/radiation (1) Wedge compression fracture of T11 vertebra Current Visit: Yes Status: Acute Code(s): S22.080A - WEDGE COMPRESSION FRACTURE OF T11-T12 VERTEBRA, INIT SNOMED Code(s): 833734172 (2) Status post fall Current Visit: Yes Status: Acute Code(s): Z91.81 - HISTORY OF FALLING SNOMED Code(s): 714732435 (3) Compression fracture of L5 lumbar vertebra Current Visit: Yes Status: Acute Code(s): S32.050A - WEDGE COMPRESSION FRACTURE OF FIFTH LUMBAR VERTEBRA, INIT SNOMED Code(s): 269243852 (4) History of renal cell carcinoma Current Visit: Yes Status: Acute Code(s): Z85.528 - PERSONAL HISTORY OF OTHER MALIGNANT NEOPLASM OF KIDNEY SNOMED Code(s): 431522536 (5) Mass of lower lobe of left lung Current Visit: Yes Status: Acute Code(s): R91.8 - OTHER NONSPECIFIC ABNORMAL FINDING OF LUNG FIELD SNOMED Code(s): 177822233 (6) Hallucinations Current Visit: Yes Status: Acute Code(s): R44.3 - HALLUCINATIONS, UNSPECIFIED SNOMED Code(s): 4457502 (7) Inability to walk Current Visit: Yes Status: Acute Code(s): R26.2 - DIFFICULTY IN WALKING, NOT ELSEWHERE CLASSIFIED SNOMED Code(s): 385898263 Plan: Plan: 1. Following physical examination the patient, reviewing imaging by myself and Dr. Sharath Bob, and further discussion with the patient, we will currently plan to have the patient start working through conservative treatment for his acute T11 compression fracture deformity with thoracic back pain as well as newly diagnosed L5 superior endplate fracture. We'll plan to obtain a [employer] TLSO brace. Once this brace has been delivered and fitted appropriately, brace should be worn while patient is sitting upright at greater than 45, during ambulation, during increased activities, and while working with physical therapy. Brace does not have to be worn while lying in bed or while bathing. We discussed patient should avoid working through physical therapy until this brace is delivered and fitted appropriately. This prescription has been written and provided to case management today who states this brace may be able to be obtained today. Once this brace is delivered and fitted properly, patient will be clear for discharge from orthopedic spine standpoint. We will continue to follow patient closely and will also plan to have the patient follow -up in the outpatient setting for further evaluation. 2. Patient will continue to be followed by pulmonology and medicine. Pulmonology is planning for navigational bronchoscopy and pry up CT of the left lower lung mass for definitive diagnosis. 3. Continue pain control 4. Following discharge, patient may follow-up with Colby Bullock PA-C or Dr. Sharath Bob at [facility] in approximately 2 weeks for further evaluation 5. Patient has been discussed in detail with Dr. Sharath Bob and he agrees with this plan Time with Patient: Less than 30
--- NOTE | 2017-05-17 16:41 | P.CONS ---
History of Present Illness - Reason for Consult Consult date: 05/17/17 Metastatic Cancer Requesting physician: Delmar Hurtado - Chief Complaint Mental Status Changes - History of Present Illness Joel is well known to our practice, primary oncologist Dr. Parsons. He was diagnosed with Renal Cell Carcinoma in 1994, then presented with Gross Hematuria and large R renal mass, he was seen by Dr Londono at [facility] and had radical R Nephrectomy. He did well till 2004 when he developed progressive L posterior pelvic pain, he was Re-evaluated @ [facility], had bone Biopsy appearantely confirming metastatic RCC , he was treated with Radiation therapy and a full year of "Chemo pill" ? likely Sutent. Stopped after developed L foot ischemia and found to have PVD in L lower ext and required PTCA and stint placement. No further recurrences/Metastasis developed, he was followed by Dr Londono at [facility], but stated he wants to have follow ups closer to town, therefore started following Dr. Parsons in 2014. He remained on surveillance, although has not been seen since 2016. He follows regulary with Dr. Pretty his Primary Care Physician. He has known multiple co-morbidities including progressive dementia, history of CVA/TIAs, Parkinsons Disease, Hypeprlipidemia, Hypertension, Renal Cell Carcinoma as described above, Peripheral Vascular Disease with Bilateral Stents, and chronic Anemia. A recent Chest xray as out patient revealed an abnormality which prompted a CT scan of the chest. CHest CT revealed a 4.3X3.8CM Left Lobe Pulmonary mass with adjacent 6mm satellite nodule concerning for malignancy. There was associated adenopathy as well as a 2.7cm indeterminate left adrenal gland node. He was scheduled to have an outpatient biopsy although he has now been admitted to [facility]. He does admit to "Seeing things that arent always there" and apparently on Monday he was having hallucinations and was unsteady on feet, his heard a loud nose and when she found him he was on the floor. Therefore he was brought to ED for further evaluation. When the CT scan was performed it revealed aa 1.7cm mass in the left parietalocciptal region with as well as surrounding vasogenic edema. Decadron was initiated with a PPI. During our initial interaction with him this morning, he was scared and uncertain by us entering room. He stated he was not sure why he was there and that when we initially walked in it scared him. He admits to seeing things that are not there and to feeling confused at times. He denies cough, shortness of breath, decreased appetite. The Review of systems was completed as best as possible with his current mental status as a poor historian and current calm confusion. Review of Systems ROS unobtainable: due to mental status Past Medical History Past Medical History: No Reported History, Cancer, CVA/TIA, GERD/Reflux, Hyperlipidemia, Hypertension, Memory Impairment, Musculoskeletal Disorder, Neurologic Disorder, Vascular Disorder Additional Past Medical History / Comment(s): Right renal cell cancer with nephrectomy/chemo and radiation, anemia, TIA, PVD, parkinsons dx. History of Any Multi-Drug Resistant Organisms: None Reported Additional Past Surgical History / Comment(s): right nephrectomy, stent in bilateral legs, colonoscopy but not complete due to structure issue.egd/bx Past Anesthesia/Blood Transfusion Reactions: No Reported Reaction Additional Past Anesthesia/Blood Transfusion Reaction / Comm: Pt has had blood transfusions in the past and recently without reaction. Smoking Status: Former smoker - Past Family History Father Family Medical History: No Reported History Mother Family Medical History: Myocardial Infarction ([place]) Medications and Allergies Home Medications Medication Instructions Recorded Confirmed Type Escitalopram [Lexapro] 20 mg PO DAILY 05/30/15 05/16/17 History Gabapentin [Neurontin] 300 mg PO TID 05/30/15 05/16/17 History Pantoprazole Sodium [Protonix] 40 mg PO DAILY 02/09/16 05/16/17 History Aspirin EC [Ecotrin Low Dose] 81 mg PO DAILY #30 tablet. 02/11/16 05/16/17 Rx ALPRAZolam [Xanax] 0.25 mg PO TID PRN 11/28/16 05/16/17 History Ferrous Sulfate [Iron (65 MG 325 mg PO DAILY 11/28/16 05/16/17 History Elemental)] Atorvastatin [Lipitor] 40 mg PO HS 05/16/17 05/16/17 History Cyclobenzaprine HCl 5 mg PO BID 05/16/17 05/16/17 History Memantine [Namenda] 10 mg PO BID 05/16/17 05/16/17 History Pramipexole [Mirapex] 0.5 mg PO TID 05/16/17 05/16/17 History Allergies Allergy/AdvReac Type Severity Reaction Status Date / Time adhesive Allergy Rash/Hives Verified 05/16/17 11:31 iodine Allergy Rash/Hives Verified 05/16/17 11:31 lansoprazole [From Prevacid] Allergy Unknown Verified 05/16/17 11:31 morphine Allergy Anaphylaxis Verified 05/16/17 11:31 Physical Exam Vitals: Vital Signs Temp Pulse Pulse Resp BP BP Pulse Ox 05/17/17 09:26 97 05/17/17 07:00 98 F 97 18 140/83 99 05/16/17 23:00 98.9 F 97 16 156/89 91 L 05/16/17 18:43 100.5 F H 99 18 166/78 05/16/17 16:56 98 18 162/80 99 05/16/17 15:37 98.5 F 98 18 162/76 99 Intake and Output 05/16/17 05/17/17 05/17/17 22:59 06:59 14:59 Intake Total 1160 Balance 1160 Intake: Intake, IV Titration 800 Amount Sodium Chloride 0.9% 1, 800 000 ml @ 100 mls/hr IV . Q10H STA Rx#:[id number] Oral 360 Other: Voiding Method Urinal Urinal # Voids 4 - Constitutional General appearance: cooperative, no acute distress - EENT Eyes: EOMI, poor dentition ENT: NA/AT, normal oropharynx - Neck Neck: normal ROM - Respiratory Respiratory: bilateral: CTA (No increased effort), wheezing (Scattered occassional expiratory wheeze) - Cardiovascular Rhythm: regular Heart sounds: normal: S1, S2 - Gastrointestinal General gastrointestinal: normal bowel sounds, soft - Integumentary Integumentary: pale - Neurologic Difficult to assess, he follows commands although does not respond or follow appropriately consistently with known dementia likely main cause, secon vasogenic edema secondary to prob brain metastasis - Musculoskeletal Musculoskeletal: generalized weakness - Psychiatric Mental status baseline dementia, unable to consent for self, alert and oriented to place and himself. Results CBC & Chem 7: 05/16/17 12:31 05/16/17 12:31 CT Scan - head: report reviewed Assessment and Plan (1) Mass of lung Current Visit: Yes Status: Acute Code(s): R91.8 - OTHER NONSPECIFIC ABNORMAL FINDING OF LUNG FIELD SNOMED Code(s): 027510495 (2) Brain metastases Current Visit: Yes Status: Acute Code(s): C79.31 - SECONDARY MALIGNANT NEOPLASM OF BRAIN SNOMED Code(s): 87145471 (3) Renal cell carcinoma Current Visit: No Status: Chronic Code(s): C64.9 - MALIGNANT NEOPLASM OF UNSP KIDNEY, EXCEPT RENAL PELVIS SNOMED Code(s): 798045718 Plan: Assessment and Recs: 1. New Lung Mass: - Agree with need for tissue biopsy. Bronch/Biopsy per Pulmonary 2. Parietalocciptal lesion with vasoegenic edema: - Decadron 4mg IV q6 with PPI - Radiation Consultation 3. HX: Renal Cell Carcinoma with Nephrectomy and recurrent metastatic RCC treated with PO cancer therapy. Physician Attestation: I have completed the full history and physical of this patient and discussed and agree with dictator, Enriqueta Smalls NP. Dictated as a scribe
[2017-05-17] MEDS: ALPRAZolam 0.25 MG TAB PO PRN (17:56)
--- NOTE | 2017-05-17 19:38 | CONS ---
CONSULTATION DATE OF CONSULTATION: 05/17/2017 REASON FOR CONSULTATION: Primary lung malignancy with brain metastasis. HISTORY OF PRESENT ILLNESS: This is a 71-year-old male patient who was admitted after sustaining a fall. Patient does have parkinson's disease and has been seen and followed by his neurologist. On 05/10/[address] scan of the chest was performed. The findings did show a mass in the left lower lobe measuring 4.3 cm in greatest dimension. There was an associated 6 mm satellite nodule on the same lobe. There was also lymphadenopathy in the left hilum. Other findings showed a 2.7 cm left adrenal gland nodule. CT scan of the brain on 05/16/2017 was compared to prior imaging from February 2016. The findings did show vasogenic edema, particularly involving the left parietal occipital lobe. There was also decreased attenuation in the right coronal radiata with associated vasogenic edema. These findings were concerning and consistent with brain metastasis. The patient has been consulted by Dr. Philippe of Pulmonology. The plan of action at this time is for a bronchoscopy scheduled for 05/18/2017 for tissue diagnosis. Furthermore, because of the CT scan findings concerning for brain metastasis, patient is also scheduled for brain MRI for further evaluation. PAST MEDICAL HISTORY: 1. History of renal cell carcinoma diagnosed in 2000, treated with systemic therapy and radiation therapy. The patient has been without evidence of recurrent disease of this renal cell malignancy. 2. CVA, TIA. 3. GERD. 4. Reflux esophagitis. 5. Hyperlipidemia. 6. Hypertension. 7. Difficulty with memory. PAST SURGICAL HISTORY: 1. Right nephrectomy. 2. Bilateral stents involving the legs. 3. Colonoscopy. SOCIAL HISTORY: Past history of tobacco use. FAMILY HISTORY: Noncontributory for cancer. ALLERGIES: 1. ADHESIVE TAPE. 2. IODINE. 3. LANSOPRAZOLE. 4. MORPHINE. REVIEW OF SYSTEMS: CONSTITUTIONAL: Positive for fatigue, weight loss. Negative for fevers and chills. HEENT: Negative for odynophagia, dysphagia, neck masses. RESPIRATORY: Positive for dyspnea on exertion. Negative for chest pain and wheezing. CARDIOVASCULAR: Positive for dyspnea on exertion. Negative for chest pain, orthopnea. GASTROINTESTINAL: Negative for nausea, vomiting, hematochezia, incontinence. GENITOURINARY: Negative for hematuria, obstructive uropathy and dysuria. NEUROLOGIC: As per HPI. MEDICATIONS: 1. Lexapro. 2. Neurontin. 3. Protonix. 4. Ecotrin. 5. Xanax. 6. Iron. 7. Lipitor. 8. Cyclobenzaprine. 9. Namenda. 10.Mirapex. PHYSICAL EXAMINATION: Well-developed, well-nourished elderly gentleman lying comfortably, in no acute distress. Performance status is fair. ECOG score is 2. VITAL SIGNS: Temperature 98.9, pulse 97, respirations 16, blood pressure 156/89 , oxygen saturation 91% on oxygen. HEENT shows no scleral icterus. Oral cavity shows mucosal lesions. The neck is without palpable lymphadenopathy. CHEST: Clear to auscultation. No audible wheezes. HEART: Regular rate and rhythm. ABDOMEN: Soft, nontender. There is no organomegaly or masses. Extremities show no edema, tenderness or cyanosis. NEUROLOGIC EXAM: He is alert and oriented x3. Patient is able to follow commands. Strength is within normal limits. Gait not assessed due to history of falling. Sensation is intact. ASSESSMENT: A 71-year-old male patient with a malignant mass involving the left lower lobe with spread to hilar lymph nodes and brain diagnosed by CT imaging. Patient has been seen by Pulmonology and is scheduled for bronchoscopy on 05/18/2017. In addition, the patient will have a brain MRI scheduled at that time as well. RECOMMENDATION: I had a lengthy discussion with the patient and his regarding his current diagnosis and clinical findings. I agree with the current medical management with bronchoscopy for tissue diagnosis and brain MRI to further evaluate the brain metastasis. I will continue to follow his case. Once the patient has a tissue diagnosis confirming malignancy, I recommend radiation therapy to brain after review of the MRI. The patient will also need medical oncology consultation to discuss systemic chemotherapy options if he is a candidate. The patient will have an outpatient PET-CT scan if indicated. I will also continue to follow his case and offer recommendations when needed. MMODL / IJN: [id number] / AMAURY
[2017-05-17] MEDS: ATORVASTATIN 40 MG TAB PO SCH (20:15)
[2017-05-18] MEDS: DEXAMETHASONE SOD PHOSPHATE 4 MG/ML 1 ML VIAL IV SCH ×5 (03:48→23:04)
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
[2017-05-18] MEDS: CYCLOBENZAPRINE 5 MG TAB PO SCH ×2 (09:26→21:12)
[2017-05-18] MEDS: GABAPENTIN 300 MG CAP PO SCH ×3 (09:26→23:04)
[2017-05-18] MEDS: ESCITALOPRAM 20 MG TAB PO SCH (09:26)
[2017-05-18] MEDS: PANTOPRAZOLE 40 MG TABLET PO SCH (09:26)
[2017-05-18] MEDS: FERROUS SULFATE 325 MG TAB PO SCH (09:26)
[2017-05-18] MEDS: MEMANTINE 10 MG TAB PO SCH ×2 (09:26→21:12)
[2017-05-18] MEDS: HYDROcodone/APAP 5-325MG 1 EACH TAB PO PRN (09:27)
[2017-05-18] MEDS: PRAMIPEXOLE 0.5 MG TAB PO SCH ×3 (09:27→23:04)
[2017-05-18] MEDS ORDERED: LACTATED RINGERS 1,000 ML IV ONE (11:25)
--- NOTE | 2017-05-18 11:35 | P.PN ---
Subjective Progress Note Date: 05/18/17 Principal diagnosis: New Lung Mass, Brain mets, mental status changes Mr. Zarate seen in follow-up today. He is pleasantly confused sitting up in chair. He is responding appropriately today and calm. Objective - Vital Signs Vital signs: Vital Signs Temp 98.5 F 05/18/17 07:30 Pulse 89 05/18/17 10:08 Resp 18 05/18/17 10:08 BP 147/81 05/18/17 07:30 Pulse Ox 94 L 05/18/17 07:30 Intake & Output 05/17/17 05/18/17 05/18/17 18:59 06:59 18:59 Intake Total 100 Balance 100 Weight 75 kg Intake: Oral 100 Other: Voiding Method Urinal Incontinent Incontinent # Voids 1 1 - Constitutional General appearance: Present: cooperative, no acute distress - EENT Eyes: Present: EOMI, dentition normal ENT: Present: NA/AT, normal oropharynx - Neck Details: Supple, Trachea Midline, Neck: Present: normal ROM - Respiratory Respiratory: bilateral: CTA (No increased effort) - Cardiovascular Rhythm: regular Heart sounds: normal: S1, S2 - Gastrointestinal General gastrointestinal: Present: normal bowel sounds, soft - Integumentary Integumentary: Present: pale - Neurologic Neurologic: Present: CNII-XII intact - Musculoskeletal Musculoskeletal: Present: strength equal bilaterally - Psychiatric Psychiatric Comment(s): Pleasantly confused, Flat affect - Labs CBC & Chem 7: 05/16/17 12:31 05/16/17 12:31 Assessment and Plan (1) Mass of lung Current Visit: Yes Status: Acute Code(s): R91.8 - OTHER NONSPECIFIC ABNORMAL FINDING OF LUNG FIELD SNOMED Code(s): 794113128 (2) Brain metastases Current Visit: Yes Status: Acute Code(s): C79.31 - SECONDARY MALIGNANT NEOPLASM OF BRAIN SNOMED Code(s): 61104232 (3) Renal cell carcinoma Current Visit: No Status: Chronic Code(s): C64.9 - MALIGNANT NEOPLASM OF UNSP KIDNEY, EXCEPT RENAL PELVIS SNOMED Code(s): 698915678 Plan: Assessment and Recs: 1. New Lung Mass: - Agree with need for tissue biopsy. Bronch/Biopsy per Pulmonary - Bronch today, Await Path for tissue diagnosis. - Possible differentials metastatic Renal Cell Carcinoma versus secondary Primary Lung Cancer 2. Parietalocciptal lesion with vasoegenic edema: - Decadron 4mg IV q6 with PPI - Radiation Consultation - MRI of the Brain for better evaluation of brain mets 3. HX: Renal Cell Carcinoma with Nephrectomy and recurrent metastatic RCC treated with PO cancer therapy. - Recent CT scan abdomen and Pelvis also reviewed with questionable adrenal nodule concerning for metastatic disease. POtential this could be progressive metastatic renal cell carcinoma. Awaiting biopsy of lung mass and pathology results. 4. History of Melanoma Physician Attestation: I have completed the full history and physical of this patient and discussed and agree with dictator, Enriqueta Smalls NP. Dictated as a scribe
[2017-05-18] MEDS ORDERED: PROPOFOL 10 MG/ML 20 ML VIAL IV ONE (12:25)
[2017-05-18] MEDS ORDERED: SUCCINYLCHOLINE CHLORIDE 100 MG/5 ML SYR IV ONE (12:25)
[2017-05-18] MEDS ORDERED: GLYCOPYRROLATE 0.2 MG/ML 2 ML VIAL ONE (12:25)
[2017-05-18] MEDS ORDERED: fentaNYL (PF) 50 MCG/ML 2 ML AMP ONE (12:25)
--- NOTE | 2017-05-18 12:34 | P.PN ---
Subjective Progress Note Date: 05/18/17 Principal diagnosis: Lung mass Progress note dated 05/18/2017 71-year-old male who saw yesterday in consultation. He has a large mass in the left lung. I would presume that his lung cancer. He also has a lesion in the left occipital region of the brain. He also has associated vasogenic edema. Anyway he does have a history of dementia Parkinson's disease hyperlipidemia hypertension of renal cell carcinoma with previous nephrectomy and chemoradiation anemia PVOD CVA and no multiple other medical problems. The patient is scheduled for a navigational bronchoscopy today. We did the mapping prior to the procedure. He is currently in the operating room. I did have a chance to talk to his yesterday. She gave permission to do the procedure because patient was confused. We are going to have pathology standing by to see with get a diagnosis here in the operating room. Objective - Vital Signs Vital signs: Vital Signs Temp 98.6 F 05/18/17 12:02 Pulse 84 05/18/17 12:02 Resp 16 05/18/17 12:02 BP 176/89 05/18/17 12:02 Pulse Ox 97 05/18/17 12:02 Intake & Output 05/17/17 05/18/17 05/18/17 18:59 06:59 18:59 Intake Total 100 150 Balance 100 150 Weight 75 kg Intake: IV 150 Oral 100 Other: Voiding Method Urinal Incontinent Incontinent # Voids 1 1 1 - Exam No acute distress, confused. HEENT examination is grossly unremarkable. Mucous membranes are moist. No oral lesions. Neck supple. Full range of motion. No adenopathy thyromegaly or neck vein distention. Cardiovascular examination reveals regular rhythm rate. S1-S2 normal. No S3 or S4. No discernible murmur noted. Lungs reveal clear breath sounds. Her sounds are equal bilaterally. No adventitious lung sounds including wheezes rhonchi or crackles. Abdomen soft bowel sounds are heard. No masses or tenderness. Extremities are intact. No cyanosis clubbing or edema. Skin is without rash or lesion. Neurologic examination is brief but nonfocal. - Labs CBC & Chem 7: 05/16/17 12:31 05/16/17 12:31 Assessment and Plan Assessment: Assessment Lung mass, left lower lobe, with a lesion in the left occipital region and associated vasogenic edema likely representing lung cancer with brain metastases Status post recent fall Left adrenal gland mass History of renal cell carcinoma, status post nephrectomy on the right, status post chemoradiation Parkinson's disease Dementia Hyperlipidemia Hypertension PVOD History of CVA/TIA GERD Plan: Plan dated 05/18/2017 We did obtain information from the to do navigational bronchoscopy for the purposes of diagnosis. We'll have pathology standing by to help us with the procedure. Hopefully we will get a diagnosis in the operating room. If we are not able to get a diagnosis, the patient will probably end up with a fine- needle aspiration. Additional recommendations and suggestions are forthcoming. Prognosis is guarded. Time with Patient: Greater than 30
--- NOTE | 2017-05-18 13:08 | CT ---
EXAMINATION TYPE: CT Chest wo con Veran Protocol DATE OF EXAM: 05/18/2017 COMPARISON: 05/10/2017 HISTORY: joe cancer, brain mets, confusion, hallucinations CT DLP: 526 mGycm Automated exposure control for dose reduction was used. FINDINGS: LUNGS: There is biapical pleural-parenchymal nodular thickening. Mild to moderate centrilobular emphysematou s changes are appreciated. There is a 4.3 x 3.8 cm multilobulated left lower lobe pulmonary mass with associated adjacent 6 mm s atellite nodule directly posterior medially. Surrounding groundglass opacity likely represents atelec tasis. Calcified granuloma is noted within the left upper lobe. Paraseptal bleb is seen medially with in the left upper lobe. Linear nodular opacity within the right upper lobe measures 6 mm and is favored to represent scarring rather than a true pulmonary nodule given its linear morphology. Additional linear area of scarring is seen within the right middle lobe. Right basilar subsegmental a telectasis is identified. Main tracheobronchial tree is patent. MEDIASTINUM: Lack of IV contrast is noted to limit evaluation for mediastinal and especially hilar ad enopathy. Centrally necrotic 1.6 cm short axis left infrahilar probable lymph node is seen adjacent t o pulmonary vasculature. Within the remainder of the mediastinum there are no definitive greater than 1 cm hilar or mediastinal lymph nodes. No cardiomegaly or pericardial effusion is seen. Ascending th oracic aorta is within normal limits of size measuring 3.4 cm. OTHER: The right kidney is surgically absent and surgical clips are seen within the right retroperito neum. There is a 2.7 cm indeterminate left adrenal gland nodule. Descending duodenal diverticulum is also noted. Moderate atheromatous changes of the abdominal aorta seen. Mild multilevel degenerative c hanges of thoracic spine are noted. Severe compression fracture lower thoracic spine with retropulsio n noted. Deformities involving the left rib cage are most likely in the basis of previous trauma. IMPRESSION: 1. 4.3 x 3.8 cm left lower lobe pulmonary mass with adjacent 6 mm satellite nodule that should be con sidered neoplasm until proven otherwise. Percutaneous biopsy and/or PET CT could be performed for def initive diagnosis. 2. Left infrahilar adenopathy suspicious for malignant adenopathy. No contralateral or supraclavicula r adenopathy. 3. THERE IS A 2.7 cm indeterminate left adrenal gland nodule. Further characterization with adrenal m ass protocol CT abdomen or MR could be performed. 4. THERE IS A SEVERE COMPRESSION FRACTURE LOWER THORACIC SPINE WITH RETROPULSION CORRELATE CLINICALLY . FINDING REPORTED BY X-RAY DATED 05/16/2017. COULD NOT EXCLUDE SPINAL CORD CONTACT. MRI RECOMMENDED.
--- NOTE | 2017-05-18 14:36 | PCN ---
PROCEDURE NOTE PROCEDURE: Navigational bronchoscopy. The patient was done in the operating room in the [facility] room #2. The operators were Dr. Philippe and Amy Leary. The patient received general anesthesia by Anesthesia. There was a universal time-out and there was informed consent. After the patient was anesthetized and on the mechanical ventilator with an endotracheal tube in place, the bronchoscope was inserted through the bronchoscope adapter, connected to the endotracheal tube. The bronchoscope was passed into the left lung. Under navigational CT images, the bronchoscope was positioned and the sampling was done in the left lower lobe. There was multiple needle biopsies performed in the left lower lobe. Between transbronchial biopsies in the left lower lobe, brushes in the left lower lobe and washes in the left lower lobe. There was minimal bleeding. We assured that there was adequate hemostasis before the bronchoscope was withdrawn. The patient was very stable throughout the entire procedure. We did have Pathology in the room with us. They thought that there was likely diagnosis of non-small cell lung cancer, maybe adenocarcinoma. Will pass it on to Oncology. Additional recommendations and suggestions are forthcoming. The patient will be recovered. I will go speak to the patient's right now. MMODL / IJN: [id number] /
--- NOTE | 2017-05-18 17:47 | P.PN ---
Subjective Progress Note Date: 05/18/17 Patient is a pleasant 71-year-old male who is being followed by the neurology service for altered mental status. Patient's noticed patient was having hallucinations at home and had changes in his personality. Patient was recently diagnosed with lung mass and is being worked up for neoplastic disease. Patient had bronchoscopy done this morning with biopsy. Computed tomography scan of the brain showed evidence of metastatic disease. Patient has single lesion in the left parietal occipital region with vasogenic edema. Also evidence of possible vasogenic edema involving the right gaffney radiata. Patient is on Decadron to address the cerebral edema. Patient also has low back pain and an x-ray showed evidence of acute fracture involving T11 consistent with compression fracture. Orthopedics was fitted him with a back brace for support. Oncology service is following. At the time of my evaluation , patient is resting comfortably in bed and continues to have hallucinations. is at the bedside and states his mentation is rapidly declining. Objective - Vital Signs Vital signs: Vital Signs Temp 97.3 F L 05/18/17 14:45 Pulse 80 05/18/17 14:45 Resp 18 05/18/17 14:45 BP 164/94 05/18/17 14:45 Pulse Ox 92 L 05/18/17 14:45 Intake & Output 05/17/17 05/18/17 05/18/17 18:59 06:59 18:59 Intake Total 100 300 Balance 100 300 Weight 75 kg Intake: IV 300 Oral 100 Other: Voiding Method Urinal Incontinent Incontinent # Voids 1 1 1 - Exam PHYSICAL EXAM: GENERAL APPEARANCE: Patient is a male who appears to be in no acute distress. HEENT: Normocephalic, atraumatic, no facial asymmetry is seen. Neck is supple with no masses felt. CARDIOVASCULAR: Regular rate and rhythm. ABDOMEN: Nontender, nondistended. EXTREMITIES: Show no edema or clubbing. NEUROLOGICAL EXAM: Patient is awake and alert and oriented to person and place. Patient could not recall the year. Strength is full in all 4 extremities. Sensory exam is normal to light touch in all 4 extremities. No facial asymmetry is seen on cranial nerve testing. Mild postural tremors noted. No seizure-like activity reported. - Labs CBC & Chem 7: 05/16/17 12:31 05/16/17 12:31 Assessment and Plan Plan: Impression: 1. Altered mental status 2. Brain metastasis 3. Lung mass 4. Acute thoracic spine fracture at T11 5. History of renal cell cancer Recommendation: Patient's altered mental status is likely due to neoplastic etiology. As mentioned above, computed tomography scan of the brain did show evidence of brain metastasis. A lesion was seen in the left parietal occipital region and a possible second lesion in the right gaffney radiata. MRI of the brain with and without contrast and MRI of the thoracic spine with and without contrast has been ordered to check for metastatic disease to the spine. Metastatic disease may be cause of his compression fracture. I recommend continuing Decadron 4 mg IV every 6 hours. Continue treatment per oncology recommendation. EEG was ordered but has not yet been performed. Prognosis is guarded. I will continue to follow with you. Further recommendations to follow. I performed an examination of the patient and discussed the management with the BRAKE DRUM MOLDER. I have reviewed the BRAKE DRUM MOLDER notes and agree with the findings and plan of care.
[2017-05-18] MEDS ORDERED: amLODIPine 5 MG TAB PO SCH (20:00)
--- NOTE | 2017-05-18 20:27 | P.PN ---
Subjective Progress Note Date: 05/18/17 This is the first time on taking care of this patient History of present illness: This is a pleasant 71 years old male with past medical history of CVA/TIA, GERD , H LP, Hg and, right renal cell cancer status post nephrectomy, PVD, dementia, Parkinson disease, status post stent in both legs and previous history of smoking who presents with fall during the evaluation in the emergency room underwent CAT scan of the head shows possible brain metastases and workup was consistent with lung mass however as per family patient was at his PCPs office last week for follow-up examination and Chest x-ray was consistent also with the lung mass Subjective Patient is seen and examined by me at bedside Patient encounter was done in the presence of his family members upon the patient's request including his So, his daughter Fany and her significant other Mr. Goodman Patient denies CP/SOB, no fever, no change in bowel habits or urinary habits Patient was lying in bed with generalized weakness looks cachectic Objective - Vital Signs Vital signs: Vital Signs Temp 97.3 F L 05/18/17 14:45 Pulse 80 05/18/17 14:45 Resp 18 05/18/17 14:45 BP 164/94 05/18/17 14:45 Pulse Ox 92 L 05/18/17 14:45 Intake & Output 05/18/17 05/18/17 05/19/17 06:59 18:59 06:59 Intake Total 100 300 Output Total 200 Balance 100 100 Intake: IV 300 Oral 100 Output: Urine 200 Other: Patient is Voiding Method Incontinent Incontinent Urinal # Voids 1 1 -Constitutional: No acute distress, patient is awake alert and oriented to time place and person and use that he is in the hospital in [place] and he knew exactly today's date 05/18/2017 and he noted name the president he doesn 't seem to be in distress, however patient looks weak and cachectic Eyes: Anicteric sclerae, moist conjunctiva, no lid-lag PERRLA ENMT: NC/AT Oropharynx clear, no erythema, exudates Neck: Supple, FROM, no masses, or JVD No carotid bruits No thyromegaly Lungs: Clear to auscultation Clear to percussion Normal respiratory effort, no accessory muscle use Cardiovascular: Heart regular in rate and rhythm, No murmurs, gallops, or rubs No peripheral edema Abdominal: Soft Nontender, no guarding, rebound or rigidity Abdomen moving with respiration Normoactive bowel sounds No hepatomegaly, No splenomegaly No palpable mass No abdominal wall hernia noted Skin: Normal temperature, tone, texture, turgor No induration No subcutaneous nodules No rash, lesions No ulcers Extremities: No digital cyanosis No clubbing Pedal pulses intact and symmetrical Radial pulses intact and symmetrical no calf tenderness Psychiatric: Alert and oriented to person, place and time Appropriate affect Intact judgement Neuro: Muscles Strength 5/5 in all 4 extremities Sensation to light touch grossly present throughout Cranial nerves II-XII grossly intact No focal sensory deficits - EENT Ears: right: dull - Labs CBC & Chem 7: 05/16/17 12:31 05/16/17 12:31 Assessment and Plan Assessment: #1 possible lung cancer with brain metastases, pulmonary consultation is appreciated, patient underwent biopsy for his lung mass pending the results, MRI of the brain and the spine is pending #2 generalized weakness, status post fall, check PT OT #3 dementia, patient showing understand in HIS situation, he knows where he is, he knows why he is in the hospital and what has been going on for him on the last few days, and he is able to hold a logic conversation, continue with same treatment #4 HTN, start Norvasc 2.5 milligrams daily and hydralazine when necessary #5 compression of fracture of the lower thoracic spine, MRI of the spine is pending, C/W steroids GI Px continue with PPI DVT Px C/W SCD CODE STATUS discussed with the patient, patient verbalized understanding, missed upon my evaluation patient has capacity to make medical decision, he understands his illness, and he understands the consequences of his decisions. And after discussed with the patient and family upon patient's request he states that he had a previous order of DO NOT RESUSCITATE DO NOT INTUBATE but he wants to walk the DO NOT RESUSCITATE and he wanted to continue with chest compression if his heart stops however he wants to continue to be DNI I.E. he does not want intubation Discussed with the staff patient will be DO NOT INTUBATE only, continue with chest compression if his needed
[2017-05-18] MEDS: hydrALAZINE HCL 25 MG TAB PO PRN (20:54)
[2017-05-18] MEDS: ATORVASTATIN 40 MG TAB PO SCH (21:12)
[2017-05-18] MEDS: amLODIPine 2.5 MG TAB PO SCH (21:12)
--- NOTE | 2017-05-18 21:12 | MR ---
EXAMINATION TYPE: MR brain wo/w con DATE OF EXAM: 05/18/2017 COMPARISON: MRI brain August 03, 2016 HISTORY: Metastatic lung cancer, staging study TECHNIQUE: Multiplanar, multisequence images of the brain and brainstem is performed without and with IV contras t, utilizing 7.5 mL intravenous Gadavist . FINDINGS: Diffusion weighted images demonstrate no evidence of a recent infarct or other diffusion ab normality. There is no worrisome extra-axial fluid collection. There is ventricular and sulcal promi nence consistent with diffuse cerebral atrophy. There are scattered foci of T2 hyperintensity seen th roughout the deep and periventricular white matter. Lesions are nonspecific in appearance and distrib ution are most likely on the basis of product of chronic small vessel ischemic change in patient this age. Suspect prominent Virchow-Neno space or old lacunar infarct inferior right basal ganglia axial image 16 not significantly changed from prior. Midline structures demonstrate normal morphology. The craniocervical junction appears within normal limits. Postcontrast images demonstrate new thick-walled rim-enhancing mass right occipital region measuring approximately 2.5 x 2.4 cm axial image 12 x 2.8 cm craniocaudal dimension coronal image 32 with local mass effect and significant surrounding vasogenic edema. There is additional new 4 mm homogeneous en hancing round lesion left parietal lobe axial image 22. This lesion also shows some surrounding vasog enic edema extending superiorly The dural venous sinuses appear patent. The visualized sinuses are clear and the globes are intact. IMPRESSION: 1. 2 new metastatic lesions with larger 2.8 cm lesion noted inferior left occipital lobe having local mass effect. 2. Background mild to moderate diffuse cerebral atrophy and moderate to severe chronic small vessel i schemic change redemonstrated without significant interval change.
--- NOTE | 2017-05-18 23:48 | MR ---
EXAMINATION TYPE: MR thoracic spine wo/w con DATE OF EXAM: 05/18/2017 COMPARISON: NONE HISTORY: Spinal fracture. Lung mass. CONTRAST: Multiplanar multiecho imaging of the thoracic spine was performed without and with IV contrast. The c ontrast was gadolinium 7.5 mL.. FINDINGS: Vertebra have fairly normal alignment. There is a 50% compression deformity of T11 vertebra l body. There is mild fragment extension into the spinal canal. The canal is narrowed to 7.5 mm. The thoracic spinal cord shows no edema. There is a biconcave change in the T11 vertebral body. I do not see pathologic enhancement. There is no thoracic paraspinal mass. The posterior elements appear intac t. The remainder of the thoracic vertebra appear intact without evidence of fracture. Disc spaces ove rall are fairly well-maintained. IMPRESSION: T11 compression fracture. I do not see enhancement or mass to suggest metastatic disease. This is pro bably an osteoporotic type fracture. There is however fragment posterior extension with a mild relati ve spinal stenosis of 7.5 mm. Abnormal signal pattern in T11 vertebral body is fairly symmetric that suggests benign etiology.
[2017-05-19] MEDS: DEXAMETHASONE SOD PHOSPHATE 4 MG/ML 1 ML VIAL IV SCH ×3 (06:18→17:29)
[2017-05-19 06:35] LABS: Basophils % (A) 0 %; Eosinophils % (A) 0 %; HCT 36.1 % (39.0-53.0); HGB 11.7 gm/dL (13.0-17.5); Lymphocytes # (A) 0.9 k/uL (1.0-4.8); Lymphocytes % (A) 8 %; MCH 29.6 pg (25.0-35.0); MCHC 32.3 g/dL (31.0-37.0); MCV 91.5 fL (80.0-100.0); Mean Platelet Volume 7.1; Monocytes # (A) 0.6 k/uL (0-1.0); Monocytes % (A) 6 %; Neutrophils # (A) 9.1 k/uL (1.3-7.7); Neutrophils % (A) 85 %; Platelet Count 268 k/uL (150-450); RBC 3.95 m/uL (4.30-5.90); RDW 14.1 % (11.5-15.5); WBC 10.7 k/uL (3.8-10.6)
[2017-05-19 06:50] LABS: Calcium 8.5 mg/dL (8.4-10.2); Potassium 4.6 mmol/L (3.5-5.1)
--- NOTE | 2017-05-19 07:24 | XR ---
EXAMINATION TYPE: XR chest 1V portable DATE OF EXAM: 05/19/2017 HISTORY: Shortness of breath. COMPARISON: 05/16/2017 TECHNIQUE: Single view of the chest is submitted. FINDINGS: Demonstrated are scattered senescent parenchymal change. Persistent left lower lobe mass. The heart is stable. Hilar and mediastinal structures are within normal limits. Degenerative changes are seen of the dorsal spine. IMPRESSION: 1. Stable left lower lobe mass.
[2017-05-19] MEDS: amLODIPine 2.5 MG TAB PO SCH (09:02)
[2017-05-19] MEDS: CYCLOBENZAPRINE 5 MG TAB PO SCH (09:02)
[2017-05-19] MEDS: FERROUS SULFATE 325 MG TAB PO SCH (09:03)
[2017-05-19] MEDS: MEMANTINE 10 MG TAB PO SCH (09:03)
[2017-05-19] MEDS: GABAPENTIN 300 MG CAP PO SCH ×2 (09:03→15:48)
[2017-05-19] MEDS: ESCITALOPRAM 20 MG TAB PO SCH (09:03)
[2017-05-19] MEDS: PANTOPRAZOLE 40 MG TABLET PO SCH (09:04)
[2017-05-19] MEDS: PRAMIPEXOLE 0.5 MG TAB PO SCH ×2 (09:04→15:48)
--- NOTE | 2017-05-19 11:58 | EEG ---
ELECTROENCEPHALOGRAM REPORT DATE OF SERVICE: 05/19/2017 REASON FOR TESTING: Altered mental status. DESCRIPTION OF THE PROCEDURE: This EEG was performed using a 21 channel digital electroencephalograph, following international 10 - 20 system. DESCRIPTION OF THE RECORDING: From the beginning of the tracing, and with the patient's eyes closed, the background rhythm was mostly consisting of 6 Hz theta frequency in the posterior occipital leads. Rare phase reversals are seen. Photic stimulation was performed with no driving response seen. No pathological waves were elicited. Occasional sharp wave activity is seen. No generalized epileptiform discharges were noticed. Hyperventilation was not performed. The patient remains awake throughout the tracing. His EKG lead showed a regular rate and rhythm. INTERPRETATION: This awake EEG is abnormal due to the presence of occasional sharp wave activity and phase reversals. This is consistent with a reduced seizure threshold. No generalized epileptiform discharges were seen. Clinical correlation is recommended. SPARKLE / HARJEET: [id number] /
[2017-05-19] MEDS: CHOLECALCIFEROL 1,000 UNIT TAB PO SCH (12:25)
--- NOTE | 2017-05-19 12:37 | P.PN ---
Subjective Progress Note Date: 05/19/17 Principal diagnosis: Lung mass Progress note dated 05/18/2017 71-year-old male who saw yesterday in consultation. He has a large mass in the left lung. I would presume that his lung cancer. He also has a lesion in the left occipital region of the brain. He also has associated vasogenic edema. Anyway he does have a history of dementia Parkinson's disease hyperlipidemia hypertension of renal cell carcinoma with previous nephrectomy and chemoradiation anemia PVOD CVA and no multiple other medical problems. The patient is scheduled for a navigational bronchoscopy today. We did the mapping prior to the procedure. He is currently in the operating room. I did have a chance to talk to his yesterday. She gave permission to do the procedure because patient was confused. We are going to have pathology standing by to see with get a diagnosis here in the operating room. Progress note dated 05/19/2017 71-year-old male who we saw in consultation at couple days ago. Yesterday we took him for a navigational bronchoscopy for large mass in the left lower lobe. We did speak to pathology. He was available in the [facility] as well as today, stating that he thinks it probably relates to an adenocarcinoma. This seemed to make a lot of sense to me given the brain lesion. The brain lesion within the left occipital region of the brain and has associated vasogenic edema. The patient's on steroids. The patient does have a history of dementia , Parkinson's disease, hyperlipidemia, hypertension, renal cell carcinoma with previous nephrectomy, anemia, PVOD, CVA, and a number of other medical problems. The patient's very confused. I think we should get radiation oncology involved right away and get the patient radiated. Oncology is involved. Path reports have not yet been finalized. Objective - Vital Signs Vital signs: Vital Signs Temp 98.5 F 05/19/17 07:00 Pulse 86 05/19/17 09:23 Resp 18 05/19/17 09:23 BP 165/91 05/19/17 07:00 Pulse Ox 93 L 05/18/17 23:00 Intake & Output 05/18/17 05/19/17 05/19/17 18:59 06:59 18:59 Intake Total 300 50 Output Total 200 300 Balance 100 -250 Intake: IV 300 Oral 50 Output: Urine 200 300 Other: Voiding Method Incontinent Urinal Urinal # Voids 1 - Exam No acute distress, confused. HEENT examination is grossly unremarkable. Mucous membranes are moist. No oral lesions. Neck supple. Full range of motion. No adenopathy thyromegaly or neck vein distention. Cardiovascular examination reveals regular rhythm rate. S1-S2 normal. No S3 or S4. No discernible murmur noted. Lungs reveal clear breath sounds. Her sounds are equal bilaterally. No adventitious lung sounds including wheezes rhonchi or crackles. Abdomen soft bowel sounds are heard. No masses or tenderness. Extremities are intact. No cyanosis clubbing or edema. Skin is without rash or lesion. Neurologic examination is brief but nonfocal. - Labs CBC & Chem 7: 05/19/17 05:34 05/19/17 05:34 Labs: Abnormal Lab Results - Last 24 Hours (Table) 05/19/17 05/19/17 Range/Units 05:34 05:34 WBC 10.7 H (3.8-10.6) k/uL RBC 3.95 L (4.30-5.90) m/uL Hgb 11.7 L (13.0-17.5) gm/dL Hct 36.1 L (39.0-53.0) % Neutrophils # 9.1 H (1.3-7.7) k/uL Lymphocytes # 0.9 L (1.0-4.8) k/uL BUN 27 H (9-20) mg/dL Assessment and Plan Assessment: Assessment Lung mass, left lower lobe, with a lesion in the left occipital region and associated vasogenic edema likely representing lung cancer with brain metastases , preliminary report suggesting adenocarcinoma Status post recent fall Left adrenal gland mass History of renal cell carcinoma, status post nephrectomy on the right, status post chemoradiation Parkinson's disease Dementia Hyperlipidemia Hypertension PVOD History of CVA/TIA GERD Plan: Plan dated 05/18/2017 We did obtain information from the to do navigational bronchoscopy for the purposes of diagnosis. We'll have pathology standing by to help us with the procedure. Hopefully we will get a diagnosis in the operating room. If we are not able to get a diagnosis, the patient will probably end up with a fine- needle aspiration. Additional recommendations and suggestions are forthcoming. Prognosis is guarded. Plan dated 05/19/2017 It appears that the lesion in the left lower lobe is positive for non-small cell lung cancer, likely adenocarcinoma. The patient does have a brain met. We 'll get radiation therapy involved right away. The patient is ready on Decadron. Additional recommendations and suggestions are forthcoming. Prognosis is very poor. Time with Patient: Less than 30
--- NOTE | 2017-05-19 12:59 | P.PN ---
Addendum entered and electronically signed by Enriqueta Smalls ANP-BC 05/19/17 13: 24: Pathology has been sent through oncology office for new biopsy path to be sent for BRAF, EGFR, ROS1, RET, PDL1 and ALK Original Note: <Enriqueta Smalls - Last Filed: 05/19/17 12:54> Subjective Progress Note Date: 05/19/17 Principal diagnosis: New Lung Mass, Brain mets, mental status changes Mr. Zarate seen in follow-up today. Status Post Bronchoscopy, path Pending Objective - Vital Signs Vital signs: Vital Signs Temp 98.5 F 05/19/17 07:00 Pulse 86 05/19/17 09:23 Resp 18 05/19/17 09:23 BP 165/91 05/19/17 07:00 Pulse Ox 93 L 05/18/17 23:00 Intake & Output 05/18/17 05/19/17 05/19/17 18:59 06:59 18:59 Intake Total 300 50 Output Total 200 300 Balance 100 -250 Intake: IV 300 Oral 50 Output: Urine 200 300 Other: Voiding Method Incontinent Urinal Urinal # Voids 1 - Constitutional General appearance: Present: cooperative, no acute distress - EENT Eyes: Present: EOMI, dentition normal ENT: Present: hard of hearing, normal oropharynx - Neck Neck: Present: normal ROM - Respiratory Respiratory: bilateral: diminished (No increased Effort) - Cardiovascular Rhythm: regular Heart sounds: normal: S1, S2 - Gastrointestinal General gastrointestinal: Present: normal bowel sounds, soft - Integumentary Integumentary: Present: pale - Neurologic Neurologic: Present: CNII-XII intact - Musculoskeletal Musculoskeletal: Present: generalized weakness - Labs CBC & Chem 7: 05/19/17 05:34 05/19/17 05:34 Labs: Abnormal Lab Results - Last 24 Hours (Table) 05/19/17 05/19/17 Range/Units 05:34 05:34 WBC 10.7 H (3.8-10.6) k/uL RBC 3.95 L (4.30-5.90) m/uL Hgb 11.7 L (13.0-17.5) gm/dL Hct 36.1 L (39.0-53.0) % Neutrophils # 9.1 H (1.3-7.7) k/uL Lymphocytes # 0.9 L (1.0-4.8) k/uL BUN 27 H (9-20) mg/dL Assessment and Plan (1) Mass of lung Current Visit: Yes Status: Acute Code(s): R91.8 - OTHER NONSPECIFIC ABNORMAL FINDING OF LUNG FIELD SNOMED Code(s): 017924754 (2) Brain metastases Current Visit: Yes Status: Acute Code(s): C79.31 - SECONDARY MALIGNANT NEOPLASM OF BRAIN SNOMED Code(s): 69947322 (3) Renal cell carcinoma Current Visit: No Status: Chronic Code(s): C64.9 - MALIGNANT NEOPLASM OF UNSP KIDNEY, EXCEPT RENAL PELVIS SNOMED Code(s): 647201879 Plan: Assessment and Recs: 1. New Lung Mass: - Agree with need for tissue biopsy. Bronch/Biopsy per Pulmonary - Bronch today, Await Path for tissue diagnosis. - Possible differentials metastatic Renal Cell Carcinoma versus secondary Primary Lung Cancer - Per Pulmonary appears to be a Non-Small Cell Lung Cancer - Although awaiting final Path, Please send Path for EGFR, ROS1, RET, PD1 He likely will not be great candidate for systemic chemotherapy although if one of the above mutations in the presence of a metastatic NSCLC then toleration of oral cancer therapy may be a resonable option. 2. Parietalocciptal lesion with vasoegenic edema: - Decadron 4mg IV q6 with PPI - Radiation Consultation - MRI of the Brain for better evaluation of brain mets 3. HX: Renal Cell Carcinoma with Nephrectomy and recurrent metastatic RCC treated with PO cancer therapy. - Recent CT scan abdomen and Pelvis also reviewed with questionable adrenal nodule concerning for metastatic disease. POtential this could be progressive metastatic renal cell carcinoma. Awaiting biopsy of lung mass and pathology results. 4. History of Melanoma Physician Attestation: I have completed the full history and physical of this patient and discussed and agree with dictator, Enriqeuta Smalls AUT[employer] MECH[employer]IC. Dictated as a scribe <Ede Weathers - Last Filed: 05/19/17 16:19> Objective - Vital Signs Vital signs: Vital Signs Temp 98.2 F 05/19/17 15:00 Pulse 88 05/19/17 15:00 Resp 18 05/19/17 15:00 BP 127/78 05/19/17 15:00 Pulse Ox 94 L 05/19/17 15:00 Intake & Output 05/18/17 05/19/17 05/19/17 18:59 06:59 18:59 Intake Total 300 50 Output Total 200 300 Balance 100 -250 Intake: IV 300 Oral 50 Output: Urine 200 300 Other: Voiding Method Incontinent Urinal Urinal # Voids 1 - Labs CBC & Chem 7: 05/19/17 05:34 05/19/17 05:34 Labs: Abnormal Lab Results - Last 24 Hours (Table) 05/19/17 05/19/17 Range/Units 05:34 05:34 WBC 10.7 H (3.8-10.6) k/uL RBC 3.95 L (4.30-5.90) m/uL Hgb 11.7 L (13.0-17.5) gm/dL Hct 36.1 L (39.0-53.0) % Neutrophils # 9.1 H (1.3-7.7) k/uL Lymphocytes # 0.9 L (1.0-4.8) k/uL BUN 27 H (9-20) mg/dL Assessment and Plan Plan: Addendum: The patient's case was discussed in detail with his who is his primary caregiver. At this time pathology is pending. Lung adenocarcinoma, or recurrence of renal cell cancer or both possibilities. In either case, the patient has stage IV disease which is not curable. His does want active treatment, within reason, could prolong life and improve his symptoms. Case was also discussed in detail with radiation oncology. The patient does appear to be improved mentally with steroids. The rapid progression of his "dementia" May actually have been due to tumor effect. Based on the extent of disease on MRI, he is actually felt to be a reasonable candidate for possible SRS. He was therefore proceed with the same. We will try to switch him to oral steroids in the next 1 day or so. Once final pathology is obtained, options for systemic treatment will be discussed with him and his .
[2017-05-19] MEDS: levETIRAcetam IV 500 MG in SODIUM CHLORIDE 0.9% 100 ML IVPB SCH (14:12)
[2017-05-19] MEDS: HYDROcodone/APAP 5-325MG 1 EACH TAB PO PRN (15:48)
--- NOTE | 2017-05-19 16:49 | P.PN ---
Subjective Progress Note Date: 05/19/17 Principal diagnosis: Metastatic Cancer 71-year-old male with a history of renal cell carcinoma who presented to hospital after sustaining a fall. CT on admission identified a left lower lobe lung mass with mediastinal lymphadenopathy and an enlarged left adrenal gland. CT of hte brain visualized vasogenic edema in the left parietal lobe. MRI of the brain consistant with a right occipital and left parietal mass. Navigational bronchoscopy and biopsy of the left lower lobe mass performed with pathology still pending. Sarath mentation appears to be improving daily with IV steroids, however, he continues to be confused. The patient does have a history of dementia, Parkinson's disease, hyperlipidemia, hypertension, renal cell carcinoma with previous nephrectomy, anemia, PVOD, CVA, and a number of other medical problems. Discussion was had today in the presence of his , daughter, and son in law. Objective - Vital Signs Vital signs: Vital Signs Temp 98.2 F 05/19/17 15:00 Pulse 88 05/19/17 15:00 Resp 18 05/19/17 15:00 BP 127/78 05/19/17 15:00 Pulse Ox 94 L 05/19/17 15:00 Intake & Output 05/18/17 05/19/17 05/19/17 18:59 06:59 18:59 Intake Total 300 50 Output Total 200 300 Balance 100 -250 Intake: IV 300 Oral 50 Output: Urine 200 300 Other: Voiding Method Incontinent Urinal Urinal # Voids 1 - Exam HEENT examination is grossly unremarkable. Mucous membranes are moist. No oral lesions. Neck supple. Full range of motion. No adenopathy thyromegaly or neck vein distention. Cardiovascular examination reveals regular rhythm rate. S1-S2 normal. No S3 or S4. No discernible murmur noted. Lungs reveal clear breath sounds. Her sounds are equal bilaterally. No adventitious lung sounds including wheezes rhonchi or crackles. Abdomen soft bowel sounds are heard. No masses or tenderness. Extremities are intact. No cyanosis clubbing or edema. Skin is without rash or lesion. Neurologic patient is A&0 to person and [address]. No focal muscle weakness. Gait not assessed. - Labs CBC & Chem 7: 05/19/17 05:34 05/19/17 05:34 Labs: Abnormal Lab Results - Last 24 Hours (Table) 05/19/17 05/19/17 Range/Units 05:34 05:34 WBC 10.7 H (3.8-10.6) k/uL RBC 3.95 L (4.30-5.90) m/uL Hgb 11.7 L (13.0-17.5) gm/dL Hct 36.1 L (39.0-53.0) % Neutrophils # 9.1 H (1.3-7.7) k/uL Lymphocytes # 0.9 L (1.0-4.8) k/uL BUN 27 H (9-20) mg/dL Assessment and Plan Assessment: 71 year old with renal cell vs primary lung cancer with evidence of brain metastasis and a history of progressive dementia. Plan: We will have Joel see Dr. Quintana as an outpatient on 05/24/17 for consideration of radiosurgery as whole brain may effect his neurocognitive function to a greater degree. He will continue on decadron. This case was discussed with Dr. Weathers and Dr. Philippe. Time with Patient: Less than 30
--- NOTE | 2017-05-19 18:32 | P.PN ---
Subjective Progress Note Date: 05/19/17 Patient is a pleasant 71-year-old male who is being followed by the neurology service for altered mental status. Patient's noticed patient was having hallucinations at home and had changes in his personality. Patient was recently diagnosed with lung mass and is being worked up for neoplastic disease. Patient had bronchoscopy done this morning with biopsy. Computed tomography scan of the brain showed evidence of metastatic disease. Patient has single lesion in the left parietal occipital region with vasogenic edema. Also evidence of possible vasogenic edema involving the right gaffney radiata. Patient is on Decadron to address the cerebral edema. Patient also has low back pain and an x-ray showed evidence of acute fracture involving T11 consistent with compression fracture. Orthopedics was fitted him with a back brace for support. Oncology service is following. At the time of my evaluation , patient is resting comfortably in bed and continues to have hallucinations. is at the bedside and states his mentation is rapidly declining. 05/19/2017 Patient is a pleasant 71-year-old male who is being followed by the neurology service for altered mental status. Patient continues to be very confused. He believes he is at the [place] waiting for the possibility can go patient tickets. Patient is also hallucinating and explaining to me things that are not there. He is oriented to self only. Chest CT on admission showed left lower lobe lung mass with mediastinal lymphadenopathy. Patient had a bronchoscopy with biopsy done yesterday. Computed tomography scan of the brain showed evidence of metastatic disease. EEG was abnormal and show the presence of occasional sharp wave activity. This is consistent with reduced seizure threshold. Patient is on Decadron for vasogenic edema. Oncology is following. At the time of my evaluation, patient is resting comfortably in bed and continues to be confused. Objective - Vital Signs Vital signs: Vital Signs Temp 98.2 F 05/19/17 15:00 Pulse 88 05/19/17 15:00 Resp 18 05/19/17 15:00 BP 127/78 05/19/17 15:00 Pulse Ox 94 L 05/19/17 15:00 Intake & Output 05/18/17 05/19/17 05/19/17 18:59 06:59 18:59 Intake Total 300 50 Output Total 200 300 Balance 100 -250 Intake: IV 300 Oral 50 Output: Urine 200 300 Other: Voiding Method Incontinent Urinal Urinal # Voids 1 - Exam PHYSICAL EXAM: GENERAL APPEARANCE: Patient is a male who appears to be in no acute distress. HEENT: Normocephalic, atraumatic, no facial asymmetry is seen. Neck is supple with no masses felt. CARDIOVASCULAR: Regular rate and rhythm. ABDOMEN: Nontender, nondistended. EXTREMITIES: Show no edema or clubbing. NEUROLOGICAL EXAM: Patient is awake and alert and oriented to person only. Strength is full in all 4 extremities. Sensory exam is normal to light touch in all 4 extremities. No facial asymmetry is seen on cranial nerve testing. Mild postural tremors noted. No seizure-like activity noted. - Labs CBC & Chem 7: 05/19/17 05:34 05/19/17 05:34 Labs: Abnormal Lab Results - Last 24 Hours (Table) 05/19/17 05/19/17 Range/Units 05:34 05:34 WBC 10.7 H (3.8-10.6) k/uL RBC 3.95 L (4.30-5.90) m/uL Hgb 11.7 L (13.0-17.5) gm/dL Hct 36.1 L (39.0-53.0) % Neutrophils # 9.1 H (1.3-7.7) k/uL Lymphocytes # 0.9 L (1.0-4.8) k/uL BUN 27 H (9-20) mg/dL Assessment and Plan Plan: Impression: 1. Altered mental status 2. Brain metastasis 3. Lung mass 4. Acute thoracic spine fracture at T11 5. History of renal cell cancer Recommendation: Patient's altered mental status is likely due to neoplastic etiology. As mentioned above, computed tomography scan of the brain did show evidence of brain metastasis. MRI of the brain with and without contrast showed 2 new metastatic lesions in the inferior left occipital lobe having local mass effect. MRI of the thoracic spine with and without contrast did not show evidence for metastatic disease to the spine. Osteoporotic disease may be cause of his compression fracture. I recommend continuing Decadron 4 mg IV every 6 hours for vasogenic edema. I will start him on Keppra 500 mg IV every 12 hours due to sharp wave activity seen on EEG. Continue treatment per oncology recommendation. Prognosis is guarded. I will continue to follow with you. Further recommendations to follow. I performed an examination of the patient and discussed the management with the CONTENT MANAGER. I have reviewed the CONTENT MANAGER notes and agree with the findings and plan of care.
--- NOTE | 2017-05-19 20:04 | P.PN ---
Subjective Progress Note Date: 05/19/17 Patient is seen and examined by me at bedside early this morning Patient was lying in bed with generalized weakness looks cachectic pt is lying in bed comfortable with no distress, he denies to me new complaint Objective - Vital Signs Vital signs: Vital Signs Temp 98.5 F 05/19/17 07:00 Pulse 86 05/19/17 07:00 Resp 18 05/19/17 07:00 BP 165/91 05/19/17 07:00 Pulse Ox 93 L 05/18/17 23:00 Intake & Output 05/18/17 05/19/17 05/19/17 18:59 06:59 18:59 Intake Total 300 50 Output Total 200 300 Balance 100 -250 Intake: IV 300 Oral 50 Output: Urine 200 300 Other: Voiding Method Incontinent Urinal # Voids 1 -Constitutional: No acute distress, patient is awake alert and he is more confused today, oriented partially to time( he could recognize the year but not the day or month) and person (he could not remember the name carmel, but when i mentioned that to him he said yes nafisa burt, [place] ( he knows he is in the hospital in [place]) patient looks weak and cachectic, follow commands and able to answer questions Eyes: Anicteric sclerae, moist conjunctiva, no lid-lag PERRLA ENMT: NC/AT Oropharynx clear, no erythema, exudates Neck: Supple, FROM, no masses, or JVD No carotid bruits No thyromegaly Lungs: Clear to auscultation Clear to percussion Normal respiratory effort, no accessory muscle use Cardiovascular: Heart regular in rate and rhythm, No murmurs, gallops, or rubs No peripheral edema Abdominal: Soft Nontender, no guarding, rebound or rigidity Abdomen moving with respiration Normoactive bowel sounds No hepatomegaly, No splenomegaly No palpable mass No abdominal wall hernia noted Skin: Normal temperature, tone, texture, turgor No induration No subcutaneous nodules No rash, lesions No ulcers Extremities: No digital cyanosis No clubbing Pedal pulses intact and symmetrical Radial pulses intact and symmetrical no calf tenderness Psychiatric: Alert and oriented to person, and partially to place and time Appropriate affect Intact judgment Neuro: Muscles Strength 5/5 in all 4 extremities Sensation to light touch grossly present throughout Cranial nerves II-XII grossly intact No focal sensory deficits - Labs CBC & Chem 7: 05/19/17 05:34 05/19/17 05:34 Labs: Abnormal Lab Results - Last 24 Hours (Table) 05/19/17 05/19/17 Range/Units 05:34 05:34 WBC 10.7 H (3.8-10.6) k/uL RBC 3.95 L (4.30-5.90) m/uL Hgb 11.7 L (13.0-17.5) gm/dL Hct 36.1 L (39.0-53.0) % Neutrophils # 9.1 H (1.3-7.7) k/uL Lymphocytes # 0.9 L (1.0-4.8) k/uL BUN 27 H (9-20) mg/dL Assessment and Plan Assessment: #1 mostly lung cancer with brain metastases, pulmonary consultation is appreciated, patient underwent biopsy for his lung mass pending the results, MRI of the brain showed 2 mets lesions in the left occipital lobe with local mass effect, c/w steroids, radiation therapy team consult is appreciated and they recommend outpatient on 05/24/17 for consideration of radiosurgery #2 generalized weakness, status post fall, check PT OT #3 dementia, patient showing understanding of his situation, he knows where he is, he knows why he is in the hospital and what has been going on for him on the last few days, and he is able to hold a logic conversation, continue with same treatment #4 HTN, start Norvasc 2.5 milligrams daily and hydralazine when necessary, mostly due to the stroid effect #5 compression of fracture of the lower thoracic spine, MRI of the spine is showing T1 compression fracture, no mass, no metastases, with mild spinal stenosis, start vitamin D and calcium for osteoporosis Orthopedic consultation is appreciated, they recommended TLSO brace and follow up as an outpatient #6 pt is more confused today morning compared to yesterday, when evaluated pt yesterday he had capacity to make medical decision, however he denies hallucination or delusion, no abnormal muscular activity was seen, no tonic- clonic contractions EEG was done and he was started on Keppra 500 mg IV every 12 hours due to sharp wave activity seen on EEG. -DVT prophylaxis SCD, pt is with brain mets puts him at higher risk of bleeding into the brain as well as fall
[2017-05-20] MEDS: ATORVASTATIN 40 MG TAB PO SCH ×2 (00:16→21:37)
[2017-05-20] MEDS: CYCLOBENZAPRINE 5 MG TAB PO SCH ×3 (00:17→21:37)
[2017-05-20] MEDS: PRAMIPEXOLE 0.5 MG TAB PO SCH ×4 (00:17→22:16)
[2017-05-20] MEDS: GABAPENTIN 300 MG CAP PO SCH ×4 (00:17→22:16)
[2017-05-20] MEDS: CALCIUM CARBONATE 500 MG CHEWABLE PO SCH ×3 (00:17→21:40)
[2017-05-20] MEDS: MEMANTINE 10 MG TAB PO SCH ×3 (00:17→21:37)
[2017-05-20] MEDS: levETIRAcetam IV 500 MG in SODIUM CHLORIDE 0.9% 100 ML IVPB SCH ×3 (00:31→21:36)
[2017-05-20] MEDS: DEXAMETHASONE SOD PHOSPHATE 4 MG/ML 1 ML VIAL IV SCH ×5 (00:31→23:30)
[2017-05-20] MEDS: ALPRAZolam 0.25 MG TAB PO PRN (08:01)
[2017-05-20] MEDS: PANTOPRAZOLE 40 MG TABLET PO SCH (08:02)
[2017-05-20] MEDS: FERROUS SULFATE 325 MG TAB PO SCH (08:02)
[2017-05-20] MEDS: ESCITALOPRAM 20 MG TAB PO SCH (08:02)
[2017-05-20] MEDS: amLODIPine 2.5 MG TAB PO SCH (09:39)
--- NOTE | 2017-05-20 11:22 | P.PN ---
Subjective 71-year-old admitted the for metastatic lung cancer brain metastases leading to significant confusion patient appears to have underlying dementia. Patient's documented CODE STATUS is DO NOT RESUSCITATE and wants DO NOT RESUSCITATE. There are some family dynamics at this time. In brief it was documented by the attending physician that patient was able to make decision couple days ago that's when he made the addition that he will go through resuscitation process but not intubation. Patient's present course status remains that way. Discussed with couple physicians who evaluated the patient on admission which includes the attending physician who believes patient was able to make decisions. Discussed with oncologist who also evaluated the patient did not believe he can make his own duration couple days ago when he made about dissection. We'll also discuss with neurology regarding his mental status and ability to make decision regarding his overall goals of care and then we will decide on his CODE STATUS at that time. As of now patient is still confused alert oriented 2. At this point of time patient cannot make his decisions in my opinion. No other significant overnight events. Constitutional: Denied any fatigue denied any fever. Cardio vascular: denied any chest pain, palpitations Gastrointestinal denied any nausea vomiting Pulmonary: Denied any shortness of breath cough Neurologic denied any new focal deficits but patient is not a reliable historian Objective - Vital Signs Vital signs: Vital Signs Temp 97.4 F L 05/20/17 09:32 Pulse 88 05/20/17 09:32 Resp 16 05/20/17 09:32 BP 164/90 05/20/17 09:32 Pulse Ox 95 05/20/17 09:32 Intake & Output 05/19/17 05/20/17 05/20/17 18:59 06:59 18:59 Intake Total 1280 Balance 1280 Intake: Intake, IV Titration 100 Amount levETIRAcetam IV 500 mg 100 In Sodium Chloride 0.9% 100 ml @ 400 mls/hr IVPB Q12HR [facility] Rx#:[id number] Oral 1180 Other: Voiding Method Toilet Toilet Toilet # Voids 2 1 - Exam PHYSICAL EXAMINATION: GENERAL: The patient is alert and oriented x2, not in any acute distress. Well developed, well nourished. HEENT: Pupils are round and equally reacting to light. EOMI. No scleral icterus. No conjunctival pallor. Normocephalic, atraumatic. No pharyngeal erythema. No thyromegaly. CARDIOVASCULAR: S1 and S2 present. No murmurs, rubs, or gallops. PULMONARY: Chest is clear to auscultation, no wheezing or crackles. ABDOMEN: Soft, nontender, nondistended, normoactive bowel sounds. No palpable organomegaly. MUSCULOSKELETAL: No joint swelling or deformity. EXTREMITIES: No cyanosis, clubbing, or pedal edema. NEUROLOGICAL: Confused, unable to assess please refer to neurology dictation. SKIN: No rashes. - Labs CBC & Chem 7: 05/19/17 05:34 05/19/17 05:34 Assessment and Plan Plan: -Altered mental status and encephalopathy secondary to brain metastasis continue with systemic steroids -Underlying dementia probably dementia falls and was type -Hypertension -Compression fractures of the thoracic spine spine continue with the brace pain management. -DVT prophylaxis with SCDs -Generalized weakness continue with PT and OT
--- NOTE | 2017-05-20 13:04 | P.PN ---
Subjective Progress Note Date: 05/20/17 Principal diagnosis: Stage IV metastatic cancer. This is a very pleasant 71-year-old gentleman who follows with Dr. Pretty as his primary care physician. He has a history of dementia, Parkinson's disease, hyperlipidemia, hypertension, right renal cell cancer with nephrectomy status post chemo/radiation, anemia, peripheral vascular disease with bilateral stents , CVA/TIA. He was also found to have an abnormal chest x-ray in the outpatient setting and subsequent computed tomography scan of the chest that revealed a 4.3 x 3.8 cm left lower lobe pulmonary mass with adjacent 6 mm satellite nodule suspicious for neoplasm. There is also a left infrahilar adenopathy and a 2.7 cm indeterminate left adrenal gland nodule. The patient was scheduled to see Dr. Hilliard in our office for a possible biopsy of the left lower lobe lung mass. However, yesterday the patient started having hallucinations and unsteady gait. His heard a sudden and found him on the floor but did not actually see him fall. He was brought here to the emergency room for further evaluation. Chest x-ray revealed evidence of the left lower lobe mass, chronic changes but no acute cardiopulmonary process. There is no displaced rib fractures identified. A computed tomography scan of the brain revealed vasogenic edema with the left parietaloccipital region underlying mass measuring 1.7 cm. There is also additional areas of decreased attenuation posterior right gaffney radiata reflecting an additional vasogenic edema. MRI is recommended for further characterization and evaluate for additional lesions. He has been initiated on Decadron. The patient is seen today in consultation on the oncology unit. He is awake and alert. He is somewhat slow to respond but is answering most questions appropriately. He is confused to place and his current situation. He is maintaining good O2 saturations in the upper 90s on room air. His been afebrile. Hemodynamically stable. White count 10.0. Hemoglobin 13.9. Creatinine 1.15. Ionized calcium measures 5.1. Progress note dated 05/18/2017 71-year-old male who saw yesterday in consultation. He has a large mass in the left lung. I would presume that his lung cancer. He also has a lesion in the left occipital region of the brain. He also has associated vasogenic edema. Anyway he does have a history of dementia Parkinson's disease hyperlipidemia hypertension of renal cell carcinoma with previous nephrectomy and chemoradiation anemia PVOD CVA and no multiple other medical problems. The patient is scheduled for a navigational bronchoscopy today. We did the mapping prior to the procedure. He is currently in the operating room. I did have a chance to talk to his yesterday. She gave permission to do the procedure because patient was confused. We are going to have pathology standing by to see with get a diagnosis here in the operating room. Progress note dated 05/19/2017 71-year-old male who we saw in consultation at couple days ago. Yesterday we took him for a navigational bronchoscopy for large mass in the left lower lobe. We did speak to pathology. He was available in the [facility] as well as today, stating that he thinks it probably relates to an adenocarcinoma. This seemed to make a lot of sense to me given the brain lesion. The brain lesion within the left occipital region of the brain and has associated vasogenic edema. The patient's on steroids. The patient does have a history of dementia , Parkinson's disease, hyperlipidemia, hypertension, renal cell carcinoma with previous nephrectomy, anemia, PVOD, CVA, and a number of other medical problems. The patient's very confused. I think we should get radiation oncology involved right away and get the patient radiated. Oncology is involved. Path reports have not yet been finalized. The patient is seen again today 05/20/2017 in follow-up on the oncology unit. He remains awake and alert in no acute distress. He is confused to his current situation. His daughter is at the bedside currently. He is maintaining good O2 saturations in the mid 90s on 2 L/m per nasal cannula. His been afebrile. His left lower lobe transbronchial biopsy is positive for non-small cell cancer. Immunoperoxidase studies are pending. Tumor markers pending. The patient does have a history of renal cell carcinoma as well. MRI of the brain is consistent with a right occipital and left parietal mass. The plan is for radiation to start early next week in the outpatient setting with either radiosurgery versus whole brain due to his impaired neurocognitive function. He remains on Decadron. Objective - Vital Signs Vital signs: Vital Signs Temp 97.4 F L 05/20/17 09:32 Pulse 88 05/20/17 09:32 Resp 16 05/20/17 09:32 BP 164/90 05/20/17 09:32 Pulse Ox 95 05/20/17 09:32 Intake & Output 05/19/17 05/20/17 05/20/17 18:59 06:59 18:59 Intake Total 1280 Balance 1280 Intake: Intake, IV Titration 100 Amount levETIRAcetam IV 500 mg 100 In Sodium Chloride 0.9% 100 ml @ 400 mls/hr IVPB Q12HR [facility] Rx#:[id number] Oral 1180 Other: Voiding Method Toilet Toilet Toilet # Voids 2 1 - Exam GENERAL EXAM: Dementia. Alert, active, comfortable in no apparent distress. HEAD: Normocephalic. EYES: Normal reaction of pupils, equal size. NOSE: Clear with pink turbinates. THROAT: No erythema or exudates. NECK: No masses, no JVD. CHEST: No chest wall deformity. LUNGS: Equal air entry with no crackles, wheeze, rhonchi or dullness. CVS: S1 and S2 normal with no audible murmur, regular rhythm. ABDOMEN: No hepatosplenomegaly, normal bowel sounds, no guarding or rigidity. SPINE: No scoliosis or deformity SKIN: No rashes CENTRAL NERVOUS SYSTEM: No focal deficits, tone is normal in all 4 extremities. EXTREMITIES: There is no peripheral edema. No clubbing, no cyanosis. Peripheral pulses are intact. - Labs CBC & Chem 7: 05/19/17 05:34 05/19/17 05:34 Assessment and Plan Assessment: Impression: #1 Altered mental status with hallucinations and unsteady gait secondary to Parkinson's dementia as well as vasogenic edema within the left parietal- occipital region and a noted underlying mass measuring 1.7 cm. There is also decreased attenuation in the posterior right gaffney radiata reflecting an additional vasogenic edema. Suspect metastatic disease. #2 Status post fall without significant injury or fracture. #3 Left lower lobe pulmonary mass measuring 4.3 x 3.8 cm with adjacent 6 mm satellite nodule suspicious for neoplasm. There is also left infrahilar adenopathy suspicious for malignancy. Status post biopsy of the left lower lobe lung mass positive for non-small cell cancer. Either lung primary or metastatic renal cell. Immunoperoxidase stains are pending. Tumor markers pending. #4 Left adrenal gland nodule measuring 2.7 cm. #5 History of renal cell carcinoma with previous right nephrectomy and status post chemo/radiation. #6 Parkinson's disease. #7 Dementia. #8 Hyperlipidemia. #9 Hypertension. #10 Peripheral vascular disease with bilateral stent placements in the lower extremities. #11 History of CVA/TIA. #12 Gastroesophageal reflux disease. Plan: The patient was seen and evaluated by Dr. Philippe. Results of the biopsies were discussed with the patient's daughter who is present at the bedside. Oncology, radiation oncology, neurology all on board. The patient's overall prognosis remains quite poor and guarded. A DO NOT RESUSCITATE/DO NOT INTUBATE CODE STATUS is being discussed. In the interim we'll continue with his current medications. Continue IV Decadron. Resume Lovenox. We will continue to follow and make further recommendations based on his clinical status. I, the cosigning physician, performed a history & physical examination of the patient. Lungs sounds are clear. Maintaining good O2 saturations in the 90s on 2 L/m per nasal cannula. I discussed the assessment and plan of care with my nurse practitioner, Amy Leary. I attest to the above note as dictated by her.
[2017-05-20] MEDS: CHOLECALCIFEROL 1,000 UNIT TAB PO SCH (14:40)
[2017-05-20] MEDS: ENOXAPARIN 40 MG/0.4 ML SYRINGE SQ SCH (14:41)
[2017-05-20] MEDS: HYDROcodone/APAP 5-325MG 1 EACH TAB PO PRN (17:34)
--- NOTE | 2017-05-20 19:41 | P.PN ---
Subjective Progress Note Date: 05/20/17 Patient is a pleasant 71-year-old male who is being followed by the neurology service for altered mental status. Patient's noticed patient was having hallucinations at home and had changes in his personality. Patient was recently diagnosed with lung mass and is being worked up for neoplastic disease. Patient had bronchoscopy done this morning with biopsy. Computed tomography scan of the brain showed evidence of metastatic disease. Patient has single lesion in the left parietal occipital region with vasogenic edema. Also evidence of possible vasogenic edema involving the right gaffney radiata. Patient is on Decadron to address the cerebral edema. Patient also has low back pain and an x-ray showed evidence of acute fracture involving T11 consistent with compression fracture. Orthopedics was fitted him with a back brace for support. Oncology service is following. At the time of my evaluation , patient is resting comfortably in bed and continues to have hallucinations. is at the bedside and states his mentation is rapidly declining. 05/19/2017 Patient is a pleasant 71-year-old male who is being followed by the neurology service for altered mental status. Patient continues to be very confused. He believes he is at the bus station waiting for the possibility can go patient tickets. Patient is also hallucinating and explaining to me things that are not there. He is oriented to self only. Chest CT on admission showed left lower lobe lung mass with mediastinal lymphadenopathy. Patient had a bronchoscopy with biopsy done yesterday. Computed tomography scan of the brain showed evidence of metastatic disease. EEG was abnormal and show the presence of occasional sharp wave activity. This is consistent with reduced seizure threshold. Patient is on Decadron for vasogenic edema. Oncology is following. At the time of my evaluation, patient is resting comfortably in bed and continues to be confused. 05/20/2017 Patient is a pleasant 71-year-old male is being followed by the neurology service for altered mental status. Patient is alert and oriented today. Mentation is much clearer today as compared to yesterday. Patient's mentation seems to wax and wane. This may be due to medication he is being given. He denies pain. Patient informs me his plan is to go home or possibly on Monday and to start radiation possibly on Monday. Daughter is at the bedside. Patient is appropriate with conversation and answers to questions. At the time of my evaluation, he is resting comfortably and appears to be in no acute distress. Objective - Vital Signs Vital signs: Vital Signs Temp 98.0 F 05/20/17 15:00 Pulse 79 05/20/17 16:00 Resp 16 05/20/17 16:00 BP 136/80 05/20/17 15:00 Pulse Ox 97 05/20/17 15:00 Intake & Output 05/20/17 05/20/17 05/21/17 06:59 18:59 06:59 Intake Total 1280 Output Total 300 Balance 1280 -300 Intake: Intake, IV Titration 100 Amount levETIRAcetam IV 500 mg 100 In Sodium Chloride 0.9% 100 ml @ 400 mls/hr IVPB Q12HR [facility] Rx#:[id number] Oral 1180 Output: Urine 300 Other: Voiding Method Toilet Toilet # Voids 2 1 - Exam PHYSICAL EXAM: GENERAL APPEARANCE: Patient is a male who appears to be in no acute distress. HEENT: Normocephalic, atraumatic, no facial asymmetry is seen. Neck is supple with no masses felt. CARDIOVASCULAR: Regular rate and rhythm. ABDOMEN: Nontender, nondistended. EXTREMITIES: Show no edema or clubbing. NEUROLOGICAL EXAM: Patient is awake and alert and oriented 3. Strength is full in all 4 extremities. Sensory exam is normal to light touch in all 4 extremities. No facial asymmetry is seen on cranial nerve testing. Mild postural tremors noted. No seizure-like activity noted. - Labs CBC & Chem 7: 05/19/17 05:34 05/19/17 05:34 Assessment and Plan Plan: Impression: 1. Altered mental status 2. Brain metastasis 3. Lung mass 4. Acute thoracic spine fracture at T11 5. History of renal cell cancer Recommendation: Patient's altered mental status waxes and wanes and is likely due to neoplastic etiology as well as initiation of steroid therapy. As mentioned above, computed tomography scan of the brain did show evidence of brain metastasis. MRI of the brain with and without contrast showed 2 new metastatic lesions in the inferior left occipital lobe having local mass effect. MRI of the thoracic spine with and without contrast did not show evidence for metastatic disease to the spine. Osteoporotic disease may be cause of his compression fracture. I recommend continuing Decadron 4 mg IV every 6 hours for vasogenic edema. EEG revealed sharp wave activity consistent with low seizure threshold. I will continue him on Keppra 500 mg IV every 12 hours. Continue treatment per oncology recommendation. Prognosis is guarded. I will continue to follow with you. Further recommendations to follow. I performed an examination of the patient and discussed the management with the MOOSE HUNTER. I have reviewed the MOOSE HUNTER notes and agree with the findings and plan of care.
[2017-05-20] MEDS: hydrALAZINE HCL 25 MG TAB PO PRN (23:37)
[2017-05-21] MEDS: DEXAMETHASONE SOD PHOSPHATE 4 MG/ML 1 ML VIAL IV SCH ×3 (06:19→16:10)
[2017-05-21] MEDS: ESCITALOPRAM 20 MG TAB PO SCH (07:41)
[2017-05-21] MEDS: CHOLECALCIFEROL 1,000 UNIT TAB PO SCH (07:42)
[2017-05-21] MEDS: GABAPENTIN 300 MG CAP PO SCH ×3 (07:42→21:45)
[2017-05-21] MEDS: FERROUS SULFATE 325 MG TAB PO SCH (07:42)
[2017-05-21] MEDS: PRAMIPEXOLE 0.5 MG TAB PO SCH ×3 (07:42→21:44)
[2017-05-21] MEDS: amLODIPine 2.5 MG TAB PO SCH (07:42)
[2017-05-21] MEDS: CALCIUM CARBONATE 500 MG CHEWABLE PO SCH ×2 (07:42→21:44)
[2017-05-21] MEDS: PANTOPRAZOLE 40 MG TABLET PO SCH (07:42)
[2017-05-21] MEDS: CYCLOBENZAPRINE 5 MG TAB PO SCH ×2 (07:42→21:45)
[2017-05-21] MEDS: ENOXAPARIN 40 MG/0.4 ML SYRINGE SQ SCH (07:42)
[2017-05-21] MEDS: MEMANTINE 10 MG TAB PO SCH ×2 (07:42→21:45)
[2017-05-21] MEDS: hydrALAZINE HCL 25 MG TAB PO PRN (07:54)
--- NOTE | 2017-05-21 09:35 | P.PN ---
Subjective Progress Note Date: 05/21/17 The patient denies any new complaints. He complains of feeling weak overall. He feels that his mentation is improving, but stated himself that there is some waxing and waning. Denies any pain at this time Objective - Vital Signs Vital signs: Vital Signs Temp 98.0 F 05/21/17 07:48 Pulse 76 05/21/17 07:48 Resp 18 05/21/17 07:48 BP 190/84 05/21/17 07:48 Pulse Ox 94 L 05/21/17 07:48 Intake & Output 05/20/17 05/21/17 05/21/17 18:59 06:59 18:59 Intake Total 610 Output Total 300 Balance -300 610 Intake: IV 20 saline flush 20 Oral 590 Output: Urine 300 Other: Voiding Method Toilet Toilet # Voids 1 2 - Constitutional General appearance: Present: no acute distress - EENT Eyes: Present: EOMI, PERRLA ENT: Present: hearing grossly normal, normal oropharynx - Respiratory Respiratory: bilateral: CTA - Cardiovascular Rhythm: regular Heart sounds: normal: S1, S2 - Gastrointestinal General gastrointestinal: Present: normal bowel sounds, soft - Integumentary Integumentary: Present: normal - Neurologic Neurologic: Present: CNII-XII intact - Musculoskeletal Musculoskeletal: Present: generalized weakness, strength equal bilaterally - Psychiatric Psychiatric Comment(s): The patient is at least oriented 3. Affect was slightly slow but he was able to answer questions appropriately. - Labs CBC & Chem 7: 05/19/17 05:34 05/19/17 05:34 Assessment and Plan (1) Brain metastases Narrative/Plan: The patient is felt to be improved clinically, compared to my initial evaluation. This was discussed with the admitting service. I will plan on switching him to oral steroids, starting tomorrow. Case has been discussed with radiation oncology. At this time the plan is to start radiation next week. It is felt that he may be a good candidate for stereotactic radiation, and thus be able to avoid whole brain radiation Current Visit: Yes Status: Acute Code(s): C79.31 - SECONDARY MALIGNANT NEOPLASM OF BRAIN SNOMED Code(s): 09479196 (2) Mass of lung Narrative/Plan: The initial setup for evaluation confirmed malignancy, possibly adenocarcinoma. As noted, this could represent recurrence of his renal cell cancer, or a new lung primary. We're awaiting the final pathology. If a new lung primary, appropriate by markers will be ordered. Once diagnosis is confirmed, then systemic treatment options, based on the patient's performance status and response to brain radiation, will be discussed with the family Current Visit: Yes Status: Acute Code(s): R91.8 - OTHER NONSPECIFIC ABNORMAL FINDING OF LUNG FIELD SNOMED Code(s): 424990218
--- NOTE | 2017-05-21 11:11 | P.PN ---
Subjective 71-year-old admitted the for metastatic lung cancer brain metastases leading to significant confusion patient appears to have underlying dementia. Patient's documented CODE STATUS is DO NOT RESUSCITATE and wants DO NOT RESUSCITATE. There are some family dynamics at this time. In brief it was documented by the attending physician that patient was able to make decision couple days ago that's when he made the addition that he will go through resuscitation process but not intubation. Patient's present course status remains that way. Discussed with couple physicians who evaluated the patient on admission which includes the attending physician who believes patient was able to make decisions. Discussed with oncologist who also evaluated the patient did not believe he can make his own duration couple days ago when he made about dissection. We'll also discuss with neurology regarding his mental status and ability to make decision regarding his overall goals of care and then we will decide on his CODE STATUS at that time. As of now patient is still confused alert oriented 2. At this point of time patient cannot make his decisions in my opinion. No other significant overnight events. 05/21/2017 Patient is alert and oriented 3 but extremely slow fatigue able to answer questions is in a position to make his own decisions and patient is agreeable on DO NOT RESUSCITATE patient's CODE STATUS will be changed to DO NOT RESUSCITATE Constitutional: Denied any fatigue denied any fever. Cardio vascular: denied any chest pain, palpitations Gastrointestinal denied any nausea vomiting Pulmonary: Denied any shortness of breath cough Neurologic denied any new focal deficits but patient is not a reliable historian Objective - Vital Signs Vital signs: Vital Signs Temp 98.0 F 05/21/17 07:48 Pulse 76 05/21/17 08:00 Resp 18 05/21/17 08:00 BP 190/84 05/21/17 07:48 Pulse Ox 94 L 05/21/17 07:48 Intake & Output 05/20/17 05/21/17 05/21/17 18:59 06:59 18:59 Intake Total 610 Output Total 300 Balance -300 610 Intake: IV 20 saline flush 20 Oral 590 Output: Urine 300 Other: Voiding Method Toilet Toilet Toilet # Voids 1 2 - Exam PHYSICAL EXAMINATION: GENERAL: The patient is alert and oriented x3, not in any acute distress. Well developed, well nourished. HEENT: Pupils are round and equally reacting to light. EOMI. No scleral icterus. No conjunctival pallor. Normocephalic, atraumatic. No pharyngeal erythema. No thyromegaly. CARDIOVASCULAR: S1 and S2 present. No murmurs, rubs, or gallops. PULMONARY: Chest is clear to auscultation, no wheezing or crackles. ABDOMEN: Soft, nontender, nondistended, normoactive bowel sounds. No palpable organomegaly. MUSCULOSKELETAL: No joint swelling or deformity. EXTREMITIES: No cyanosis, clubbing, or pedal edema. NEUROLOGICAL: Confused, unable to assess please refer to neurology dictation. SKIN: No rashes. - Labs CBC & Chem 7: 05/19/17 05:34 05/19/17 05:34 Assessment and Plan Plan: -Altered mental status and encephalopathy secondary to brain metastasis continue with systemic steroids, improved mental status compared to yesterday patient is fatigued and extremely slow because of that but not confused -Underlying dementia etiology unknown. -Hypertension -Compression fractures of the thoracic spine spine continue with the brace pain management. -DVT prophylaxis with SCDs -Generalized weakness continue with PT and OT
[2017-05-21] MEDS: levETIRAcetam IV 500 MG in SODIUM CHLORIDE 0.9% 100 ML IVPB SCH (11:20)
--- NOTE | 2017-05-21 13:18 | P.PN ---
Subjective Progress Note Date: 05/21/17 Principal diagnosis: Lung mass Progress note dated 05/18/2017 71-year-old male who saw yesterday in consultation. He has a large mass in the left lung. I would presume that his lung cancer. He also has a lesion in the left occipital region of the brain. He also has associated vasogenic edema. Anyway he does have a history of dementia Parkinson's disease hyperlipidemia hypertension of renal cell carcinoma with previous nephrectomy and chemoradiation anemia PVOD CVA and no multiple other medical problems. The patient is scheduled for a navigational bronchoscopy today. We did the mapping prior to the procedure. He is currently in the operating room. I did have a chance to talk to his yesterday. She gave permission to do the procedure because patient was confused. We are going to have pathology standing by to see with get a diagnosis here in the operating room. Progress note dated 05/19/2017 71-year-old male who we saw in consultation at couple days ago. Yesterday we took him for a navigational bronchoscopy for large mass in the left lower lobe. We did speak to pathology. He was available in the [facility] as well as today, stating that he thinks it probably relates to an adenocarcinoma. This seemed to make a lot of sense to me given the brain lesion. The brain lesion within the left occipital region of the brain and has associated vasogenic edema. The patient's on steroids. The patient does have a history of dementia , Parkinson's disease, hyperlipidemia, hypertension, renal cell carcinoma with previous nephrectomy, anemia, PVOD, CVA, and a number of other medical problems. The patient's very confused. I think we should get radiation oncology involved right away and get the patient radiated. Oncology is involved. Path reports have not yet been finalized. Progress note dated 05/21/2017 71-year-old male who we saw in consultation a few days ago. He underwent navigational bronchoscopy last week for a large mass in the left lower lobe. It was positive for non-small cell lung cancer. It's believed to be adenocarcinoma. He also has a single metastatic deposits in the left occipital lobe. That was showing some evidence of vasogenic edema for that he was started on Decadron. Radiation oncology has been consulted and will see him early this week for possible radiation to the brain lesion. He was also seen by medical oncology. He has a history of dementia, Parkinson's disease, hyperlipidemia, hypertension, previous history of renal cell carcinoma with nephrectomy, anemia, PVOD, CVA, and the number of other medical problems. His mental status while here has been very poor 80s been very confused and disoriented. Objective - Vital Signs Vital signs: Vital Signs Temp 98.0 F 05/21/17 07:48 Pulse 76 05/21/17 08:00 Resp 18 05/21/17 08:00 BP 190/84 05/21/17 07:48 Pulse Ox 94 L 05/21/17 11:55 Intake & Output 05/20/17 05/21/17 05/21/17 18:59 06:59 18:59 Intake Total 610 Output Total 300 0 Balance -300 610 0 Intake: IV 20 saline flush 20 Oral 590 Output: Urine 300 0 Other: Voiding Method Toilet Toilet Toilet # Voids 1 2 4 - Exam No acute distress, confused. HEENT examination is grossly unremarkable. Mucous membranes are moist. No oral lesions. Neck supple. Full range of motion. No adenopathy thyromegaly or neck vein distention. Cardiovascular examination reveals regular rhythm rate. S1-S2 normal. No S3 or S4. No discernible murmur noted. Lungs reveal clear breath sounds. Her sounds are equal bilaterally. No adventitious lung sounds including wheezes rhonchi or crackles. Abdomen soft bowel sounds are heard. No masses or tenderness. Extremities are intact. No cyanosis clubbing or edema. Skin is without rash or lesion. Neurologic examination is brief but nonfocal. - Labs CBC & Chem 7: 05/19/17 05:34 05/19/17 05:34 Assessment and Plan Assessment: Assessment Lung mass, left lower lobe, with a lesion in the left occipital region and associated vasogenic edema likely representing lung cancer with brain metastases , preliminary report suggesting adenocarcinoma Status post recent fall Left adrenal gland mass History of renal cell carcinoma, status post nephrectomy on the right, status post chemoradiation Parkinson's disease Dementia Hyperlipidemia Hypertension PVOD History of CVA/TIA GERD Plan: Plan dated 05/18/2017 We did obtain information from the to do navigational bronchoscopy for the purposes of diagnosis. We'll have pathology standing by to help us with the procedure. Hopefully we will get a diagnosis in the operating room. If we are not able to get a diagnosis, the patient will probably end up with a fine- needle aspiration. Additional recommendations and suggestions are forthcoming. Prognosis is guarded. Plan dated 05/19/2017 It appears that the lesion in the left lower lobe is positive for non-small cell lung cancer, likely adenocarcinoma. The patient does have a brain met. We 'll get radiation therapy involved right away. The patient is ready on Decadron. Additional recommendations and suggestions are forthcoming. Prognosis is very poor. Plan dated 05/21/2017 Appreciate input by oncology and radiation therapy. Hopefully a stereotactic brain radiation will take place early this week. The patient's mental status is only minimally improved in my opinion. Anyway, oncology is involved. We'll make a decision about systemic chemotherapy. Biomarkers have been ordered on the recent lung biopsy. Additional recommendations and suggestions are forthcoming. Pulmonary status is actually stable. Time with Patient: Less than 30
--- NOTE | 2017-05-21 16:02 | P.PN ---
Subjective Progress Note Date: 05/21/17 Patient is a pleasant 71-year-old male who is being followed by the neurology service for altered mental status. Patient's noticed patient was having hallucinations at home and had changes in his personality. Patient was recently diagnosed with lung mass and is being worked up for neoplastic disease. Patient had bronchoscopy done this morning with biopsy. Computed tomography scan of the brain showed evidence of metastatic disease. Patient has single lesion in the left parietal occipital region with vasogenic edema. Also evidence of possible vasogenic edema involving the right gaffney radiata. Patient is on Decadron to address the cerebral edema. Patient also has low back pain and an x-ray showed evidence of acute fracture involving T11 consistent with compression fracture. Orthopedics was fitted him with a back brace for support. Oncology service is following. At the time of my evaluation , patient is resting comfortably in bed and continues to have hallucinations. is at the bedside and states his mentation is rapidly declining. 05/19/2017 Patient is a pleasant 71-year-old male who is being followed by the neurology service for altered mental status. Patient continues to be very confused. He believes he is at the bus [place] waiting for the possibility can go patient tickets. Patient is also hallucinating and explaining to me things that are not there. He is oriented to self only. Chest CT on admission showed left lower lobe lung mass with mediastinal lymphadenopathy. Patient had a bronchoscopy with biopsy done yesterday. Computed tomography scan of the brain showed evidence of metastatic disease. EEG was abnormal and show the presence of occasional sharp wave activity. This is consistent with reduced seizure threshold. Patient is on Decadron for vasogenic edema. Oncology is following. At the time of my evaluation, patient is resting comfortably in bed and continues to be confused. 05/20/2017 Patient is a pleasant 71-year-old male is being followed by the neurology service for altered mental status. Patient is alert and oriented today. Mentation is much clearer today as compared to yesterday. Patient's mentation seems to wax and wane. This may be due to medication he is being given. He denies pain. Patient informs me his plan is to go home or possibly on Monday and to start radiation possibly on Monday. Daughter is at the bedside. Patient is appropriate with conversation and answers to questions. At the time of my evaluation, he is resting comfortably and appears to be in no acute distress. 05/21/2017 Patient is a pleasant 71-year-old male who is being followed by the neurology service for altered mental status. Patient was found to have neoplastic lung mass which has metastasized to the brain. Patient's mentation waxes and wanes. He denies being in pain. He is being followed by oncology. Patient has a history of mild dementia and is on Namenda. Patient has history of Parkinson's and he is on Mirapex. At the time of my evaluation patient is resting comfortably in bed and appears to be in no acute distress. Objective - Vital Signs Vital signs: Vital Signs Temp 98.1 F 05/21/17 15:12 Pulse 83 05/21/17 15:12 Resp 18 05/21/17 15:12 BP 167/96 05/21/17 15:12 Pulse Ox 96 05/21/17 15:12 Intake & Output 05/20/17 05/21/17 05/21/17 18:59 06:59 18:59 Intake Total 610 240 Output Total 300 2 Balance -300 610 238 Intake: IV 20 saline flush 20 Oral 590 240 Output: Urine 300 0 Stool 2 Other: Voiding Method Toilet Toilet Toilet # Voids 1 2 3 - Exam PHYSICAL EXAM: GENERAL APPEARANCE: Patient is a male who appears to be in no acute distress. HEENT: Normocephalic, atraumatic, no facial asymmetry is seen. Neck is supple with no masses felt. CARDIOVASCULAR: Regular rate and rhythm. ABDOMEN: Nontender, nondistended. EXTREMITIES: Show no edema or clubbing. NEUROLOGICAL EXAM: Patient is awake and alert and oriented 2. Patient does not know where he is. Strength is full in all 4 extremities. Sensory exam is normal to light touch in all 4 extremities. No facial asymmetry is seen on cranial nerve testing. Mild postural tremors noted. No seizure-like activity noted. - Labs CBC & Chem 7: 05/19/17 05:34 05/19/17 05:34 Assessment and Plan Plan: Impression: 1. Altered mental status 2. Brain metastasis 3. Lung mass 4. Acute thoracic spine fracture at T11 5. History of renal cell cancer Recommendation: Patient's altered mental status waxes and wanes and is likely due to neoplastic etiology as well as initiation of steroid therapy. As mentioned above, computed tomography scan of the brain did show evidence of brain metastasis. MRI of the brain with and without contrast showed 2 new metastatic lesions in the inferior left occipital lobe having local mass effect. MRI of the thoracic spine with and without contrast did not show evidence for metastatic disease to the spine. Osteoporotic disease may be cause of his compression fracture. I recommend continuing Decadron 4 mg IV every 6 hours for vasogenic edema. EEG revealed sharp wave activity consistent with low seizure threshold. I will continue him on Keppra 500 mg IV every 12 hours. Continue treatment per oncology recommendation. Prognosis is guarded. I will continue to follow with you on an as-needed basis. Feel free to call with any questions or concerns. I performed an examination of the patient and discussed the management with the MECHANICAL SPREADER OPERATOR. I have reviewed the MECHANICAL SPREADER OPERATOR notes and agree with the findings and plan of care.
[2017-05-21] MEDS: ATORVASTATIN 40 MG TAB PO SCH (21:44)
[2017-05-21] MEDS: levETIRAcetam 500 MG TAB PO SCH (21:45)
[2017-05-22] MEDS: DEXAMETHASONE SOD PHOSPHATE 4 MG/ML 1 ML VIAL IV SCH ×4 (00:11→17:21)
[2017-05-22 07:59] LABS: HCT 37.4 % (39.0-53.0); HGB 12.2 gm/dL (13.0-17.5); MCH 29.7 pg (25.0-35.0); MCHC 32.6 g/dL (31.0-37.0); Mean Platelet Volume 7.3; Platelet Count 252 k/uL (150-450); RBC 4.11 m/uL (4.30-5.90); RDW 14.1 % (11.5-15.5); WBC 10.4 k/uL (3.8-10.6)
[2017-05-22 08:14] LABS: Calcium 8.4 mg/dL (8.4-10.2); Potassium 4.3 mmol/L (3.5-5.1)
[2017-05-22] MEDS: CHOLECALCIFEROL 1,000 UNIT TAB PO SCH (08:18)
[2017-05-22] MEDS: GABAPENTIN 300 MG CAP PO SCH ×3 (08:18→20:59)
[2017-05-22] MEDS: CALCIUM CARBONATE 500 MG CHEWABLE PO SCH ×2 (08:18→21:00)
[2017-05-22] MEDS: MEMANTINE 10 MG TAB PO SCH ×2 (08:19→20:59)
[2017-05-22] MEDS: FERROUS SULFATE 325 MG TAB PO SCH (08:19)
[2017-05-22] MEDS: ENOXAPARIN 40 MG/0.4 ML SYRINGE SQ SCH (08:19)
[2017-05-22] MEDS: amLODIPine 5 MG TAB PO SCH (08:19)
[2017-05-22] MEDS: ESCITALOPRAM 20 MG TAB PO SCH (08:19)
[2017-05-22] MEDS: CYCLOBENZAPRINE 5 MG TAB PO SCH ×2 (08:19→20:59)
[2017-05-22] MEDS: PANTOPRAZOLE 40 MG TABLET PO SCH (08:19)
[2017-05-22] MEDS: levETIRAcetam 500 MG TAB PO SCH ×2 (08:19→20:59)
[2017-05-22] MEDS: PRAMIPEXOLE 0.5 MG TAB PO SCH ×3 (08:19→20:59)
--- NOTE | 2017-05-22 16:18 | P.PN ---
Subjective Progress Note Date: 05/22/17 Principal diagnosis: Left lower lung mass, cytology positive for non-small cell lung cancer. A lesion in the left occipital region and associated vasogenic edema likely representing lung cancer with brain metastasis, after adrenal gland mass, history of renal cell carcinoma, status post nephrectomy on the right, status post chemoradiation. Progress note dated 05/18/2017 71-year-old male who saw yesterday in consultation. He has a large mass in the left lung. I would presume that his lung cancer. He also has a lesion in the left occipital region of the brain. He also has associated vasogenic edema. Anyway he does have a history of dementia Parkinson's disease hyperlipidemia hypertension of renal cell carcinoma with previous nephrectomy and chemoradiation anemia PVOD CVA and no multiple other medical problems. The patient is scheduled for a navigational bronchoscopy today. We did the mapping prior to the procedure. He is currently in the operating room. I did have a chance to talk to his yesterday. She gave permission to do the procedure because patient was confused. We are going to have pathology standing by to see with get a diagnosis here in the operating room. Progress note dated 05/19/2017 71-year-old male who we saw in consultation at couple days ago. Yesterday we took him for a navigational bronchoscopy for large mass in the left lower lobe. We did speak to pathology. He was available in the [place] [facility] as well as today, stating that he thinks it probably relates to an adenocarcinoma. This seemed to make a lot of sense to me given the brain lesion. The brain lesion within the left occipital region of the brain and has associated vasogenic edema. The patient's on steroids. The patient does have a history of dementia , Parkinson's disease, hyperlipidemia, hypertension, renal cell carcinoma with previous nephrectomy, anemia, PVOD, CVA, and a number of other medical problems. The patient's very confused. I think we should get radiation oncology involved right away and get the patient radiated. Oncology is involved. Path reports have not yet been finalized. Progress note dated 05/21/2017 71-year-old male who we saw in consultation a few days ago. He underwent navigational bronchoscopy last week for a large mass in the left lower lobe. It was positive for non-small cell lung cancer. It's believed to be adenocarcinoma. He also has a single metastatic deposits in the left occipital lobe. That was showing some evidence of vasogenic edema for that he was started on Decadron. Radiation oncology has been consulted and will see him early this week for possible radiation to the brain lesion. He was also seen by medical oncology. He has a history of dementia, Parkinson's disease, hyperlipidemia, hypertension, previous history of renal cell carcinoma with nephrectomy, anemia, PVOD, CVA, and the number of other medical problems. His mental status while here has been very poor 80s been very confused and disoriented. On 05/22/2017 patient seen in follow-up on oncology floor. He remains confused , however not aggressive. Patient's bronchial washing cytology came back for non-small cell malignant neoplasm. Medical oncology is planning on initiating stereotactic radiation treatment next week. Further systemic treatment options are being discussed with the family the treatment of adenocarcinoma of the lung. Currently patient is on room air, with O2 sat 97%. Vitals are stable, denies any dyspnea, lung sounds are positive for diminished lung sounds the bases, no rhonchi or crackles noted. Afebrile. Patient is on IV Decadron for the vasogenic cerebral edema related to brain metastatic lesion. Objective - Vital Signs Vital signs: Vital Signs Temp 97.8 F 05/22/17 07:00 Pulse 79 05/22/17 07:00 Resp 16 05/22/17 07:00 BP 175/94 05/22/17 07:00 Pulse Ox 97 05/22/17 07:00 Intake & Output 05/21/17 05/22/17 05/22/17 18:59 06:59 18:59 Intake Total 240 250 450 Output Total 6 Balance 234 250 450 Weight 75 kg Intake: Oral 240 250 450 Output: Urine 0 Stool 6 Other: Voiding Method Toilet Toilet Toilet # Voids 3 1 2 - Exam No acute distress, confused. HEENT examination is grossly unremarkable. Mucous membranes are moist. No oral lesions. Neck supple. Full range of motion. No adenopathy thyromegaly or neck vein distention. Cardiovascular examination reveals regular rhythm rate. S1-S2 normal. No S3 or S4. No discernible murmur noted. Lungs reveal clear breath sounds. Her sounds are equal bilaterally. No adventitious lung sounds including wheezes rhonchi or crackles. Abdomen soft bowel sounds are heard. No masses or tenderness. Extremities are intact. No cyanosis clubbing or edema. Skin is without rash or lesion. Neurologic examination is brief but nonfocal. - Labs CBC & Chem 7: 05/22/17 06:48 05/22/17 06:48 Labs: Abnormal Lab Results - Last 24 Hours (Table) 05/22/17 05/22/17 Range/Units 06:48 06:48 RBC 4.11 L (4.30-5.90) m/uL Hgb 12.2 L (13.0-17.5) gm/dL Hct 37.4 L (39.0-53.0) % Sodium 136 L (137-145) mmol/L BUN 32 H (9-20) mg/dL Assessment and Plan Plan: Assessment: Lung mass, left lower lobe, status post navigational bronchoscopy, pathology is positive for non-small cell lung cancer with a lesion in the left occipital region and associated vasogenic edema likely representing lung cancer with brain metastases Status post recent fall Left adrenal gland mass History of renal cell carcinoma, status post nephrectomy on the right, status post chemoradiation Parkinson's disease Dementia Hyperlipidemia Hypertension PVOD History of CVA/TIA GERD Plan: We'll continue to follow with medical oncology, patient remains confused, but denies any acute dyspnea, is on room air, maintaining good oxygenation at this time. Patient is anticipated to start his stereotactic radiation treatment to his brain next week, systemic therapy is being discussed by medical oncology for the non-small cell lung cancer with metastasis. We'll continue to follow with you, prognosis is guarded. I performed a history & physical examination of the patient and discussed their management with my nurse practitioner, Selena Sandoval. I reviewed the nurse practitioner's note and agree with the documented findings and plan of care. Lung sounds are positive for diminished lung sounds at the bases. The findings and the impression was discussed with the patient. I attest to the documentation by the nurse practitioner. Time with Patient: Less than 30
--- NOTE | 2017-05-22 20:32 | P.PN ---
Subjective Principal diagnosis: Resting in bed. Continues to complain of mid back pain. Diagnosed with non- cell lung adenocarcinoma. Also diagnosed with brain lesion Objective - Vital Signs Vital signs: Vital Signs Temp 97.8 F 05/22/17 15:00 Pulse 72 05/22/17 15:00 Resp 16 05/22/17 15:00 BP 123/73 05/22/17 15:00 Pulse Ox 96 05/22/17 15:00 Intake & Output 05/22/17 05/22/17 05/23/17 06:59 18:59 06:59 Intake Total 250 450 Balance 250 450 Weight 75 kg Intake: Oral 250 450 Other: Voiding Method Toilet Toilet # Voids 1 2 - Constitutional General appearance: Present: mild distress - EENT Eyes: Present: PERRLA Ears: bilateral: normal - Neck Neck: Present: normal ROM - Respiratory Respiratory: bilateral: diminished - Cardiovascular Rhythm: regular - Gastrointestinal General gastrointestinal: Present: soft - Integumentary Integumentary: Present: normal - Neurologic Neurologic: Present: CNII-XII intact - Musculoskeletal Musculoskeletal: Present: generalized weakness - Psychiatric Psychiatric Comment(s): Patient awake and alert - Labs CBC & Chem 7: 05/22/17 06:48 05/22/17 06:48 Labs: Abnormal Lab Results - Last 24 Hours (Table) 05/22/17 05/22/17 Range/Units 06:48 06:48 RBC 4.11 L (4.30-5.90) m/uL Hgb 12.2 L (13.0-17.5) gm/dL Hct 37.4 L (39.0-53.0) % Sodium 136 L (137-145) mmol/L BUN 32 H (9-20) mg/dL Assessment and Plan Plan: Assessment Hypertension Confusion and dementia secondary to brain metastasis with brain lesion Non-small cell adenocarcinoma the lung Thoracic compression fracture T11 Weakness History of CVA/TIA GERD Hyperlipidemia Parkinson's History of renal cell carcinoma Plan Continue consultation with pulmonology Oncology Neurology And Dr. Bob from orthopedics
[2017-05-22] MEDS: ATORVASTATIN 40 MG TAB PO SCH (20:59)
[2017-05-22] MEDS: DEXAMETHASONE 4 MG TAB PO SCH (21:00)
[2017-05-23] MEDS: HYDROcodone/APAP 5-325MG 1 EACH TAB PO PRN (09:21)
[2017-05-23] MEDS: CALCIUM CARBONATE 500 MG CHEWABLE PO SCH ×2 (09:56→21:22)
[2017-05-23] MEDS: amLODIPine 5 MG TAB PO SCH (09:56)
[2017-05-23] MEDS: DEXAMETHASONE 4 MG TAB PO SCH ×3 (09:57→21:22)
[2017-05-23] MEDS: ESCITALOPRAM 20 MG TAB PO SCH (09:57)
[2017-05-23] MEDS: GABAPENTIN 300 MG CAP PO SCH ×3 (09:57→21:22)
[2017-05-23] MEDS: ENOXAPARIN 40 MG/0.4 ML SYRINGE SQ SCH (09:57)
[2017-05-23] MEDS: levETIRAcetam 500 MG TAB PO SCH ×2 (09:57→21:22)
[2017-05-23] MEDS: CYCLOBENZAPRINE 5 MG TAB PO SCH ×2 (09:57→21:22)
[2017-05-23] MEDS: FERROUS SULFATE 325 MG TAB PO SCH (09:57)
[2017-05-23] MEDS: PRAMIPEXOLE 0.5 MG TAB PO SCH ×3 (09:58→21:22)
[2017-05-23] MEDS: PANTOPRAZOLE 40 MG TABLET PO SCH (09:58)
[2017-05-23] MEDS: MEMANTINE 10 MG TAB PO SCH ×2 (09:58→21:22)
--- NOTE | 2017-05-23 12:04 | P.PN ---
Subjective Patient more awake and alert than yesterday. Awaiting recommendations oncology for further treatment Objective - Vital Signs Vital signs: Vital Signs Temp 97.7 F 05/23/17 07:17 Pulse 71 05/23/17 07:17 Resp 16 05/23/17 10:32 BP 172/83 05/23/17 07:17 Pulse Ox 95 05/23/17 07:17 Intake & Output 05/22/17 05/23/17 05/23/17 18:59 06:59 18:59 Intake Total 450 790 Output Total 0 Balance 450 790 0 Weight 75 kg 75 kg Intake: Oral 450 790 Output: Urine 0 Other: Voiding Method Toilet Toilet Toilet # Voids 2 2 - Constitutional General appearance: Present: mild distress - EENT Eyes: Present: PERRLA Ears: bilateral: normal - Neck Neck: Present: normal ROM - Respiratory Respiratory: bilateral: diminished - Cardiovascular Rhythm: regular - Gastrointestinal General gastrointestinal: Present: soft - Integumentary Integumentary: Present: normal - Neurologic Neurologic: Present: CNII-XII intact - Psychiatric Psychiatric: Present: A&O x's 3 - Labs CBC & Chem 7: 05/22/17 06:48 05/22/17 06:48 Assessment and Plan Plan: Assessment 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 Arminda Bob Awaiting recommendations from oncology for treatment
[2017-05-23] MEDS: CHOLECALCIFEROL 1,000 UNIT TAB PO SCH (12:48)
--- NOTE | 2017-05-23 17:28 | P.PN ---
Subjective Progress Note Date: 05/23/17 Principal diagnosis: Left lower lung mass, cytology positive for non-small cell lung cancer. A lesion in the left occipital region and associated vasogenic edema likely representing lung cancer with brain metastasis, after adrenal gland mass, history of renal cell carcinoma, status post nephrectomy on the right, status post chemoradiation. Progress note dated 05/18/2017 71-year-old male who saw yesterday in consultation. He has a large mass in the left lung. I would presume that his lung cancer. He also has a lesion in the left occipital region of the brain. He also has associated vasogenic edema. Anyway he does have a history of dementia Parkinson's disease hyperlipidemia hypertension of renal cell carcinoma with previous nephrectomy and chemoradiation anemia PVOD CVA and no multiple other medical problems. The patient is scheduled for a navigational bronchoscopy today. We did the mapping prior to the procedure. He is currently in the operating room. I did have a chance to talk to his yesterday. She gave permission to do the procedure because patient was confused. We are going to have pathology standing by to see with get a diagnosis here in the operating room. Progress note dated 05/19/2017 71-year-old male who we saw in consultation at couple days ago. Yesterday we took him for a navigational bronchoscopy for large mass in the left lower lobe. We did speak to pathology. He was available in the [facility] as well as today, stating that he thinks it probably relates to an adenocarcinoma. This seemed to make a lot of sense to me given the brain lesion. The brain lesion within the left occipital region of the brain and has associated vasogenic edema. The patient's on steroids. The patient does have a history of dementia , Parkinson's disease, hyperlipidemia, hypertension, renal cell carcinoma with previous nephrectomy, anemia, PVOD, CVA, and a number of other medical problems. The patient's very confused. I think we should get radiation oncology involved right away and get the patient radiated. Oncology is involved. Path reports have not yet been finalized. Progress note dated 05/21/2017 71-year-old male who we saw in consultation a few days ago. He underwent navigational bronchoscopy last week for a large mass in the left lower lobe. It was positive for non-small cell lung cancer. It's believed to be adenocarcinoma. He also has a single metastatic deposits in the left occipital lobe. That was showing some evidence of vasogenic edema for that he was started on Decadron. Radiation oncology has been consulted and will see him early this week for possible radiation to the brain lesion. He was also seen by medical oncology. He has a history of dementia, Parkinson's disease, hyperlipidemia, hypertension, previous history of renal cell carcinoma with nephrectomy, anemia, PVOD, CVA, and the number of other medical problems. His mental status while here has been very poor 80s been very confused and disoriented. On 05/22/2017 patient seen in follow-up on oncology floor. He remains confused , however not aggressive. Patient's bronchial washing cytology came back for non-small cell malignant neoplasm. Medical oncology is planning on initiating stereotactic radiation treatment next week. Further systemic treatment options are being discussed with the family the treatment of adenocarcinoma of the lung. Currently patient is on room air, with O2 sat 97%. Vitals are stable, denies any dyspnea, lung sounds are positive for diminished lung sounds the bases, no rhonchi or crackles noted. Afebrile. Patient is on IV Decadron for the vasogenic cerebral edema related to brain metastatic lesion. On 05/23/2017 patient seen in follow-up on oncology floor. He is awake, alert, remains confused. Patient is awaiting evaluation for stereotactic radiation for the brain lesion next week. Denies any acute dyspnea, or chest pain. He is currently on room air with O2 sat 96%. He is afebrile, vital signs are stable. Lung sounds are clear to auscultation, no rhonchi, or crackles noted. Tolerating oral intake. Days lab work shows a CBC of 10.4, hemoglobin of 12.2, sodium of 136, potassium is 4.3, B1 is 32, creatinine is 1.09. Objective - Vital Signs Vital signs: Vital Signs Temp 97.5 F L 05/23/17 14:25 Pulse 83 05/23/17 14:25 Resp 18 05/23/17 14:25 BP 117/70 05/23/17 14:25 Pulse Ox 96 05/23/17 14:25 Intake & Output 05/22/17 05/23/17 05/23/17 18:59 06:59 18:59 Intake Total 450 790 Output Total 0 Balance 450 790 0 Weight 75 kg 75 kg Intake: Oral 450 790 Output: Urine 0 Other: Voiding Method Toilet Toilet Toilet # Voids 2 2 3 - Exam No acute distress, confused. HEENT examination is grossly unremarkable. Mucous membranes are moist. No oral lesions. Neck supple. Full range of motion. No adenopathy thyromegaly or neck vein distention. Cardiovascular examination reveals regular rhythm rate. S1-S2 normal. No S3 or S4. No discernible murmur noted. Lungs reveal clear breath sounds. Her sounds are equal bilaterally. No adventitious lung sounds including wheezes rhonchi or crackles. Abdomen soft bowel sounds are heard. No masses or tenderness. Extremities are intact. No cyanosis clubbing or edema. Skin is without rash or lesion. Neurologic examination is brief but nonfocal. - Labs CBC & Chem 7: 05/22/17 06:48 05/22/17 06:48 Assessment and Plan Plan: Assessment: Lung mass, left lower lobe, status post navigational bronchoscopy, pathology is positive for non-small cell lung cancer with a lesion in the left occipital region and associated vasogenic edema likely representing lung cancer with brain metastases Status post recent fall Left adrenal gland mass History of renal cell carcinoma, status post nephrectomy on the right, status post chemoradiation Parkinson's disease Dementia Hyperlipidemia Hypertension PVOD History of CVA/TIA GERD Plan: Patient remains somewhat confused, but denies any acute dyspnea, is on room air , maintaining good oxygenation at this time. Patient is anticipated to start his stereotactic radiation treatment to his brain next week, systemic therapy is being discussed by medical oncology for the non-small cell lung cancer with metastasis. We'll sign off at this time, prognosis is poor given the advanced metastatic adenocarcinoma. We'll see the patient on as-needed basis. Thank you for this consultation I performed a history & physical examination of the patient and discussed their management with my nurse practitioner, Selena Sandoval. I reviewed the nurse practitioner's note and agree with the documented findings and plan of care. Lung sounds are positive for diminished lung sounds at the bases. The findings and the impression was discussed with the patient. I attest to the documentation by the nurse practitioner. Time with Patient: Less than 30
--- NOTE | 2017-05-23 18:32 | P.PN ---
Subjective Progress Note Date: 05/23/17 Principal diagnosis: New Lung Mass, Brain mets, mental status changes Mr. Zarate seen in follow-up today. No new complaints or events over night. Objective - Vital Signs Vital signs: Vital Signs Temp 97.7 F 05/23/17 07:17 Pulse 71 05/23/17 07:17 Resp 16 05/23/17 10:32 BP 172/83 05/23/17 07:17 Pulse Ox 95 05/23/17 07:17 Intake & Output 05/22/17 05/23/17 05/23/17 18:59 06:59 18:59 Intake Total 450 790 Output Total 0 Balance 450 790 0 Weight 75 kg 75 kg Intake: Oral 450 790 Output: Urine 0 Other: Voiding Method Toilet Toilet Toilet # Voids 2 2 - Constitutional General appearance: Present: average body habitus, no acute distress - EENT Eyes: Present: PERRLA, poor dentition ENT: Present: hard of hearing, NA/AT, normal oropharynx - Neck Neck: Present: normal ROM - Respiratory Respiratory: bilateral: CTA - Cardiovascular Rhythm: regular - Gastrointestinal General gastrointestinal: Present: normal bowel sounds, soft - Integumentary Integumentary: Present: pale - Neurologic Neurologic: Present: CNII-XII intact - Musculoskeletal Musculoskeletal: Present: strength equal bilaterally - Psychiatric Psychiatric: Present: A&O x's 3 - Labs CBC & Chem 7: 05/22/17 06:48 05/22/17 06:48 Assessment and Plan (1) Mass of lung Current Visit: Yes Status: Acute Code(s): R91.8 - OTHER NONSPECIFIC ABNORMAL FINDING OF LUNG FIELD SNOMED Code(s): 185643175 (2) Brain metastases Current Visit: Yes Status: Acute Code(s): C79.31 - SECONDARY MALIGNANT NEOPLASM OF BRAIN SNOMED Code(s): 75889478 (3) Renal cell carcinoma Current Visit: No Status: Chronic Code(s): C64.9 - MALIGNANT NEOPLASM OF UNSP KIDNEY, EXCEPT RENAL PELVIS SNOMED Code(s): 235182139 Plan: Assessment and Recs: 1. New Lung Mass: - Agree with need for tissue biopsy. Bronch/Biopsy per Pulmonary - Bronch today, Await Path for tissue diagnosis. - Possible differentials metastatic Renal Cell Carcinoma versus secondary Primary Lung Cancer - Per Pulmonary appears to be a Non-Small Cell Lung Cancer - Although awaiting final Path, Please send Path for EGFR, ROS1, RET, PD1, ALK Braf, TMB He likely will not be great candidate for systemic chemotherapy although if one of the above mutations in the presence of a metastatic NSCLC then toleration of oral cancer therapy may be a resonable option. - Await Final Pathology 2. Parietalocciptal lesion with vasoegenic edema: - Decadron 4mg IV q6 with PPI - Radiation Consultation - MRI of the Brain for better evaluation of brain mets 3. HX: Renal Cell Carcinoma with Nephrectomy and recurrent metastatic RCC treated with PO cancer therapy. - Recent CT scan abdomen and Pelvis also reviewed with questionable adrenal nodule concerning for metastatic disease. POtential this could be progressive metastatic renal cell carcinoma. Awaiting biopsy of lung mass and pathology results. 4. History of Melanoma Physician Attestation: I have completed the full history and physical of this patient and discussed and agree with dictator, Enriqueta Smalls NP. Dictated as a scribe
[2017-05-23] MEDS: ATORVASTATIN 40 MG TAB PO SCH (21:21)
[2017-05-24] MEDS: DEXAMETHASONE 4 MG TAB PO SCH ×3 (08:26→21:02)
[2017-05-24] MEDS: CALCIUM CARBONATE 500 MG CHEWABLE PO SCH ×2 (08:26→21:01)
[2017-05-24] MEDS: CYCLOBENZAPRINE 5 MG TAB PO SCH ×2 (08:26→21:01)
[2017-05-24] MEDS: amLODIPine 5 MG TAB PO SCH (08:26)
[2017-05-24] MEDS: ENOXAPARIN 40 MG/0.4 ML SYRINGE SQ SCH (08:26)
[2017-05-24] MEDS: ESCITALOPRAM 20 MG TAB PO SCH (08:26)
[2017-05-24] MEDS: FERROUS SULFATE 325 MG TAB PO SCH (08:26)
[2017-05-24] MEDS: GABAPENTIN 300 MG CAP PO SCH ×3 (08:27→22:27)
[2017-05-24] MEDS: levETIRAcetam 500 MG TAB PO SCH ×2 (08:27→21:01)
[2017-05-24] MEDS: PRAMIPEXOLE 0.5 MG TAB PO SCH ×3 (08:27→22:27)
[2017-05-24] MEDS: MEMANTINE 10 MG TAB PO SCH ×2 (08:27→21:01)
[2017-05-24] MEDS: PANTOPRAZOLE 40 MG TABLET PO SCH (08:27)
[2017-05-24] MEDS: HYDROcodone/APAP 5-325MG 1 EACH TAB PO PRN ×2 (08:48→16:41)
[2017-05-24] MEDS: CHOLECALCIFEROL 1,000 UNIT TAB PO SCH (12:17)
--- NOTE | 2017-05-24 12:44 | P.PN ---
Subjective Principal diagnosis: Patient had first radiation therapy treatment to brain. Patient up ambulating with assist with physical therapy. Discussed treatment with . wants to take patient home. We'll continue on radiation and chemotherapy with oncology Objective - Vital Signs Vital signs: Vital Signs Temp 97.5 F L 05/24/17 07:30 Pulse 70 05/24/17 07:30 Resp 16 05/24/17 09:43 BP 146/80 05/24/17 07:30 Pulse Ox 98 05/24/17 07:30 Intake & Output 05/23/17 05/24/17 05/24/17 18:59 06:59 18:59 Intake Total 905 Output Total 0 Balance 0 905 Intake: Oral 905 Output: Urine 0 Other: Voiding Method Toilet Toilet Toilet # Voids 3 1 - Constitutional General appearance: Present: mild distress - EENT Eyes: Present: PERRLA Ears: bilateral: normal - Neck Neck: Present: normal ROM - Respiratory Respiratory: bilateral: diminished - Cardiovascular Rhythm: regular - Gastrointestinal General gastrointestinal: Present: soft - Neurologic Neurologic: Present: CNII-XII intact - Musculoskeletal Musculoskeletal Comment(s): Ambulating with assist of with walker Musculoskeletal: Present: generalized weakness - Psychiatric Psychiatric Comment(s): Patient awake and alert intermittent episodes of confusion - Labs CBC & Chem 7: 05/22/17 06:48 05/22/17 06:48 Assessment and Plan Plan: Assessment Hypertension Confusion and dementia related to brain metastasis Lung cancer non-small cell adenocarcinoma post bronchoscopy with biopsy History of renal cell carcinoma History of CVA/TIA GERD Hyperlipidemia Parkinson's T11 fracture Plan Continue consultation with Dr. Arminda Bob Plan is for palliative radiation therapy to brain Chemotherapy for lung cancer Discharge home to
--- NOTE | 2017-05-24 13:55 | P.PN ---
Subjective Progress Note Date: 05/24/17 Principal diagnosis: New Lung Mass, Brain mets, mental status changes Mr. Zarate seen in follow-up today. No new complaints or events over night. Final Pathology revealing consistent with history of metastatic Renal Cell Objective - Vital Signs Vital signs: Vital Signs Temp 97.5 F L 05/24/17 07:30 Pulse 70 05/24/17 07:30 Resp 16 05/24/17 09:43 BP 146/80 05/24/17 07:30 Pulse Ox 98 05/24/17 07:30 Intake & Output 05/23/17 05/24/17 05/24/17 18:59 06:59 18:59 Intake Total 905 Output Total 0 Balance 0 905 Intake: Oral 905 Output: Urine 0 Other: Voiding Method Toilet Toilet Toilet # Voids 3 1 - Constitutional General appearance: Present: cooperative, no acute distress - EENT Eyes: Present: EOMI, dentition normal ENT: Present: hard of hearing, NA/AT, normal oropharynx - Neck Neck: Present: normal ROM - Respiratory Respiratory: bilateral: CTA (No increased Effort) - Cardiovascular Rhythm: regular - Gastrointestinal General gastrointestinal: Present: normal bowel sounds, soft - Neurologic Neurologic: Present: CNII-XII intact - Musculoskeletal Musculoskeletal: Present: generalized weakness - Psychiatric Psychiatric Comment(s): Pleasantly Confused Psychiatric: Present: A&O x's 3 - Labs CBC & Chem 7: 05/22/17 06:48 05/22/17 06:48 Assessment and Plan (1) Mass of lung Current Visit: Yes Status: Acute Code(s): R91.8 - OTHER NONSPECIFIC ABNORMAL FINDING OF LUNG FIELD SNOMED Code(s): 719022608 (2) Brain metastases Current Visit: Yes Status: Acute Code(s): C79.31 - SECONDARY MALIGNANT NEOPLASM OF BRAIN SNOMED Code(s): 84789832 (3) Renal cell carcinoma Current Visit: No Status: Chronic Code(s): C64.9 - MALIGNANT NEOPLASM OF UNSP KIDNEY, EXCEPT RENAL PELVIS SNOMED Code(s): 451295926 Plan: Assessment and Recs: 1. New Lung Mass: - Agree with need for tissue biopsy. Bronch/Biopsy per Pulmonary - Bronch today, Await Path for tissue diagnosis. - Possible differentials metastatic Renal Cell Carcinoma versus secondary Primary Lung Cancer - Final Path is consistent with a metastatic Renal Cell Carcinoma which is likely more favorable for treatment options in his current performance status and other co-morbidities. We will have him follow-up with Dr. Parsons after discharge for further treatment options. . - Await Final Pathology 2. Parietalocciptal lesion with vasoegenic edema: - Decadron 4mg IV q6 with PPI - Radiation Consultation - MRI of the Brain for better evaluation of brain mets - Dr. Quintana to stereo-surgery brain mets 3. HX: Renal Cell Carcinoma with Nephrectomy and recurrent metastatic RCC treated with PO cancer therapy. - Recent CT scan abdomen and Pelvis also reviewed with questionable adrenal nodule concerning for metastatic disease. POtential this could be progressive metastatic renal cell carcinoma. Awaiting biopsy of lung mass and pathology results. 4. History of Melanoma Physician Attestation: I have completed the full history and physical of this patient and discussed and agree with dictator, Enriqueta Smalls NP. Dictated as a scribe
[2017-05-24] MEDS: ATORVASTATIN 40 MG TAB PO SCH (21:01)
[2017-05-25] MEDS: HYDROcodone/APAP 5-325MG 1 EACH TAB PO PRN ×3 (03:53→20:31)
[2017-05-25] MEDS: MEMANTINE 10 MG TAB PO SCH ×2 (08:35→20:31)
[2017-05-25] MEDS: PANTOPRAZOLE 40 MG TABLET PO SCH (08:35)
[2017-05-25] MEDS: PRAMIPEXOLE 0.5 MG TAB PO SCH ×3 (08:35→20:30)
[2017-05-25] MEDS: levETIRAcetam 500 MG TAB PO SCH ×2 (08:35→20:31)
[2017-05-25] MEDS: GABAPENTIN 300 MG CAP PO SCH ×3 (08:35→20:30)
[2017-05-25] MEDS: CYCLOBENZAPRINE 5 MG TAB PO SCH ×2 (08:36→20:30)
[2017-05-25] MEDS: amLODIPine 5 MG TAB PO SCH (08:36)
[2017-05-25] MEDS: ENOXAPARIN 40 MG/0.4 ML SYRINGE SQ SCH (08:36)
[2017-05-25] MEDS: FERROUS SULFATE 325 MG TAB PO SCH (08:36)
[2017-05-25] MEDS: DEXAMETHASONE 4 MG TAB PO SCH ×3 (08:36→20:31)
[2017-05-25] MEDS: CALCIUM CARBONATE 500 MG CHEWABLE PO SCH ×2 (08:36→20:30)
[2017-05-25] MEDS: ESCITALOPRAM 20 MG TAB PO SCH (08:36)
[2017-05-25] MEDS: CHOLECALCIFEROL 1,000 UNIT TAB PO SCH (13:21)
[2017-05-25] MEDS: ATORVASTATIN 40 MG TAB PO SCH (20:30)
--- NOTE | 2017-05-25 21:13 | PN ---
PROGRESS NOTE DATE OF SERVICE: 05/25/2017 I am covering for Dr. Dario Pretty. HISTORY OF PRESENT ILLNESS: This 71-year-old gentleman who was admitted with hypertension, confusion also had lung cancer with non-small cell lung carcinoma with brain METS also. The patient being planned to start on radiation at this time. The patient remains to be confused and generally weak. The family would like the patient to return home at this time. PAST MEDICAL HISTORY: Reviewed. REVIEW OF SYSTEM: Could not be taken. CURRENT MEDICATIONS: Reviewed include: 1. Tylenol 650 q.6h p.r.n. 2. [place] 5 mg q.4h. 3. Norvasc 5 mg p.o. daily. 4. Lipitor 10 mg q.h.s. 5. Tums 500 mg p.o. b.i.d. 6. Vitamin D3 2000. 7. Flexeril 5 mg p.o. b.i.d. 8. 4 mg t.i.d. 9. Lovenox 40 mg subcu daily. 10.Lexapro 20 mg. 11.Iron sulfate 320 mg. 12.Neurontin 300 mg t.i.d. 13.Keppra 500 mg p.o. b.i.d. 14.Namenda 10 mg p.o. daily. 15.Zofran. 16.Protonix. PHYSICAL EXAM: Patient is conscious but confused. Pulse 81, blood pressure 122/68, respiration 18, temperature 98 degrees, pulse ox 98% on room air. HEENT is conjunctivae normal. Oral mucosa moist. Neck is no jugular venous distention. No carotid bruit. No lymph node enlargement. Cardiovascular system: S1, S2 muffled. No S3, no S4. Respiratory: Breath sounds diminished in the bases. A few scattered rhonchi and crackles. ABDOMEN: Soft, nontender. Legs: No edema. No swelling. Central nervous system : Diffusely weak. LABS: WBC 10.2, hemoglobin 12.2. ASSESSMENT: 1. Non-small cell lung cancer, left lower lobe with left occipital brain mass with vasogenic edema. 2. Confusion acute toxic metabolic encephalopathy. 3. Hypertension. 4. History of renal cell carcinoma. 5. History of cerebrovascular accident, transient ischemic attack. 6. Gastroesophageal reflux disease. 7. Hyperlipidemia. 8. Parkinson's. 9. T11 fracture history. RECOMMENDATIONS AND DISCUSSION: Recommend to continue current medications, symptomatic treatment, management. Otherwise I would recommend repeat labs, PT/OT evaluation, Radiation Oncology, follow closely with radiation Oncology. Stereotactic radiation has been planned at this time. Prognosis guarded because of multiple complex medical issues. We will continue to monitor with PT/OT. Social Work was also consulted to evaluate the home situation. Further recommendations to follow. MMODL / IJN: [id number] / MTDD
[2017-05-26] MEDS: HYDROcodone/APAP 5-325MG 1 EACH TAB PO PRN ×2 (03:32→16:14)
[2017-05-26] MEDS: PRAMIPEXOLE 0.5 MG TAB PO SCH ×2 (07:29→16:15)
[2017-05-26] MEDS: GABAPENTIN 300 MG CAP PO SCH ×2 (07:29→15:46)
[2017-05-26] MEDS: PANTOPRAZOLE 40 MG TABLET PO SCH (07:30)
[2017-05-26] MEDS: ESCITALOPRAM 20 MG TAB PO SCH ×3 (07:30→07:33)
[2017-05-26] MEDS: amLODIPine 5 MG TAB PO SCH (07:32)
[2017-05-26] MEDS: CALCIUM CARBONATE 500 MG CHEWABLE PO SCH (07:32)
[2017-05-26] MEDS: DEXAMETHASONE 4 MG TAB PO SCH ×2 (07:32→15:45)
[2017-05-26] MEDS: MEMANTINE 10 MG TAB PO SCH (07:33)
[2017-05-26] MEDS: FERROUS SULFATE 325 MG TAB PO SCH (07:33)
[2017-05-26] MEDS: CYCLOBENZAPRINE 5 MG TAB PO SCH (07:33)
[2017-05-26] MEDS: ENOXAPARIN 40 MG/0.4 ML SYRINGE SQ SCH (07:33)
[2017-05-26 08:05] VITALS: BP 113/74; PULSE 84; RESP 18; TEMP 97.9
[2017-05-26 08:11] LABS: Basophils % (A) 0 %; Eosinophils % (A) 0 %; HCT 40.5 % (39.0-53.0); HGB 13.3 gm/dL (13.0-17.5); Lymphocytes # (A) 0.7 k/uL (1.0-4.8); Lymphocytes % (A) 6 %; MCH 30.3 pg (25.0-35.0); MCHC 32.8 g/dL (31.0-37.0); MCV 92.6 fL (80.0-100.0); Mean Platelet Volume 6.8; Monocytes # (A) 0.8 k/uL (0-1.0); Monocytes % (A) 6 %; Neutrophils # (A) 11.3 k/uL (1.3-7.7); Neutrophils % (A) 87 %; Platelet Count 257 k/uL (150-450); RBC 4.37 m/uL (4.30-5.90); RDW 14.7 % (11.5-15.5); WBC 12.9 k/uL (3.8-10.6)
[2017-05-26 08:29] LABS: Calcium 8.2 mg/dL (8.4-10.2); Potassium 4.9 mmol/L (3.5-5.1)
[2017-05-26] MEDS: levETIRAcetam 500 MG TAB PO SCH (10:00)
[2017-05-26] MEDS: CHOLECALCIFEROL 1,000 UNIT TAB PO SCH (15:40)
--- NOTE | 2017-05-26 16:46 | P.PN ---
Subjective Progress Note Date: 05/26/17 The patient is complaining of some persistent low back pain at the site of trauma. He is otherwise clinically stable. He has started radiation. Objective - Vital Signs Vital signs: Vital Signs Temp 97.9 F 05/26/17 07:20 Pulse 84 05/26/17 16:15 Resp 18 05/26/17 16:15 BP 113/74 05/26/17 07:20 Pulse Ox 96 05/26/17 07:20 Intake & Output 05/25/17 05/26/17 05/26/17 18:59 06:59 18:59 Intake Total 360 Output Total 4 Balance 356 Weight 75 kg Intake: Oral 360 Output: Urine 0 Stool 4 Other: Voiding Method Toilet Toilet Toilet Urinal # Voids 2 1 3 - Constitutional General appearance: Present: no acute distress - EENT Eyes: Present: PERRLA ENT: Present: hearing grossly normal, normal oropharynx - Respiratory Respiratory: bilateral: CTA - Cardiovascular Rhythm: regular Heart sounds: normal: S1, S2 - Gastrointestinal General gastrointestinal: Present: soft - Integumentary Integumentary: Present: normal - Neurologic Neurologic: Present: CNII-XII intact - Musculoskeletal Musculoskeletal: Present: generalized weakness, strength equal bilaterally - Psychiatric Psychiatric Comment(s): Affect and responses are somewhat slow, but appropriate Psychiatric: Present: A&O x's 3, intact judgment & insight - Labs CBC & Chem 7: 05/26/17 07:48 05/26/17 07:48 Labs: Abnormal Lab Results - Last 24 Hours (Table) 05/26/17 05/26/17 Range/Units 07:48 07:48 WBC 12.9 H (3.8-10.6) k/uL Neutrophils # 11.3 H (1.3-7.7) k/uL Lymphocytes # 0.7 L (1.0-4.8) k/uL BUN 39 H (9-20) mg/dL Glucose 113 H (74-99) mg/dL Calcium 8.2 L (8.4-10.2) mg/dL Assessment and Plan (1) Brain metastases Narrative/Plan: The case was discussed with radiation oncology. The patient has been initiated on stereotactic radiosurgery. He will complete treatment, likely next week. He is currently on by mouth steroids. He is being discharged today. A prescription for steroid taper was given. Current Visit: Yes Status: Acute Code(s): C79.31 - SECONDARY MALIGNANT NEOPLASM OF BRAIN SNOMED Code(s): 73119334 (2) Mass of lung Narrative/Plan: The pathology came back positive for metastatic renal cell carcinoma. Therefore this most likely represents progression of his known metastatic renal cell cancer. As noted the patient had not been on any treatment, as he had stopped following up in the office, for about 2 years or so. His clinical course appears to indicate a slow-growing disease. He will follow-up with Dr. Parsons in the office on 06/07/17 to discuss options for systemic therapy. Current Visit: Yes Status: Acute Code(s): R91.8 - OTHER NONSPECIFIC ABNORMAL FINDING OF LUNG FIELD SNOMED Code(s): 281989249 (3) Compression fracture of L5 lumbar vertebra Narrative/Plan: The short-term prescription for [place] was given to him. His was advised that he needs to follow-up with his primary care physician in the outpatient setting to get repeat prescriptions if needed Current Visit: Yes Status: Acute Code(s): S32.050A - WEDGE COMPRESSION FRACTURE OF FIFTH LUMBAR VERTEBRA, INIT SNOMED Code(s): 636342022
--- NOTE | 2017-05-26 20:44 | DS ---
DISCHARGE SUMMARY FINAL DIAGNOSES: 1. [id number]-wqsa lung cancer, left lower lobe, with left occipital brain metastases with vasogenic edema. 2. Confusion; acute toxic metabolic encephalopathy secondary to number 1. 3. Hypertension. 4. History of renal cell carcinoma. 5. History of cerebrovascular accident, transient ischemic attack. 6. Gastroesophageal reflux disease. 7. Hyperlipidemia. 8. History of Parkinson's. 9. T11 fracture history. DISCHARGE DISPOSITION: The patient will be discharged in stable condition with guarded prognosis. HISTORY OF PRESENT ILLNESS: This 71-year-old gentleman with a past medical history of multiple medical problems was admitted with multiple medical problems, as mentioned earlier. Patient had confusion. Patient also had brain metastases. Radiation therapy was initiated. On exam, vitals are stable. CARDIOVASCULAR SYSTEM: S1, S2 muffled. ABDOMEN: Soft. NERVOUS SYSTEM: Diffusely weak. The family and the patient would like to return home. The patient will be discharged in stable condition with the following advice and medications. 1. Diet is For cardiac. 2. Activity limited until followup. 3. Follow up with Dr. Pretty in 2-3 days. 4. Follow up with Dr. Francis as advised. 5. Follow up with Dr. Parsons as advised. 6. Tylenol 650 q.6 p.r.n. 7. Xanax 0.25 t.i.d. 8. Norvasc 5 mg p.o. daily. 9. Ecotrin 81 mg daily. 10.Lipitor 40 mg at bedtime. 11.Vitamin D3 2000 units p.o. daily. 12.Cyclobenzaprine 5 mg p.o. b.i.d. 13.Dexamethasone 2 mg 3 tablets t.i.d. for 4 days; 2 tablets t.i.d. for 4 days; 2 tablets b.i.d. for 4 days; 1 tablet b.i.d. for 4 days; 1 tablet p.o. b.i.d. for 4 days. 14.Lexapro 20 mg p.o. daily. 15.Iron sulfate 325 mg p.o. daily. 16.Neurontin 300 mg p.o. t.i.d. 17.Hydrocodone 5 mg q.4 p.r.n. 18.Keppra 500 mg p.o. b.i.d. 19.Namenda 10 mg p.o. b.i.d. 20.Protonix 40 mg p.o. b.i.d. 21.Mirapex 0.5 p.o. t.i.d. SPARKLE / HARJEET: [id number] /
--- NOTE | 2017-05-29 15:47 | CDI ---
Last Revision, January 2017 Documentation Clarification Form Date: 05/29/17 From: Dee Edmonds Phone: If you have a question regarding this query, please contact Yessi Clement at [phone] Admit Date: 05/16/2017 3:41:00 PM Patient Name: Joel Razo Visit Number: [id number] Discharge Date: ATTENTION: The Clinical Documentation Specialists (CDI) and [facility] Coding Staff appreciate your assistance in clarifying documentation. Please respond to the clarification below the line at the bottom and electronically sign. The CDI & [facility] Coding staff will review the response and follow-up if needed. Please note: Queries are made part of the Legal Health Record. If you have any questions, please contact the author of this message via ITS. Dr. Jody Diaz A history of peripheral vascular disease with bilateral stents is documented in the past medical history throughout the chart. Patient history/risk factors: Patient has hypertension, hyperlipidemia and a history of smoking. Other Clinical Indicators: History of stents bilateral legs. In your professional opinion, can you please clarify the cause of the Peripheral Vascular Disease? Atherosclerosis of extremities Occlusive Peripheral angiopathy Other please specify Unable to determine Atherosclerosis of extremities 05/31- already answered MTDD
== END 2017-05-26 19:06 | disposition home health service (06) | DRG 54 ==
LOC: EC 11:10 → 5MS5E 15:41 → 5ONC 16:50
PROVIDERS: ADMIT Family Medicine; ATTEND Family Medicine
PROC: 0BDJ8ZX Extraction of Left Lower Lung Lobe, Via Natural or Artificial Opening Endoscopic, Diagnostic (ICD-10-PCS; principal; 2017-05-18 07:30)
PROC: D00 Radiation Therapy, Central and Peripheral Nervous System, Beam Radiation (ICD-10-PCS; 2017-05-24)
DX: C79.31 Secondary malignant neoplasm of brain (principal); G92 Toxic encephalopathy; G93.6 Cerebral edema; C78.02 Secondary malignant neoplasm of left lung; M80.88XA Other osteoporosis with current pathological fracture, vertebra(e), initial encounter for fracture; R64 Cachexia; E27.8 Other specified disorders of adrenal gland; G20 Parkinson's disease; I70.202 Unspecified atherosclerosis of native arteries of extremities, left leg; E78.5 Hyperlipidemia, unspecified; F02.80 Dementia in other diseases classified elsewhere, unspecified severity, without behavioral disturbance, psychotic disturbance, mood disturbance, and anxiety; I10 Essential (primary) hypertension; K21.9 Gastro-esophageal reflux disease without esophagitis; R26.2 Difficulty in walking, not elsewhere classified; R32 Unspecified urinary incontinence; F41.9 Anxiety disorder, unspecified; F32.9 Major depressive disorder, single episode, unspecified; M48.00 Spinal stenosis, site unspecified; Z91.041 Radiographic dye allergy status; Z88.5 Allergy status to narcotic agent; Z88.8 Allergy status to other drugs, medicaments and biological substances; Z91.048 Other nonmedicinal substance allergy status; Z87.11 Personal history of peptic ulcer disease; Z79.899 Other long term (current) drug therapy; Z79.82 Long term (current) use of aspirin; Z95.820 Peripheral vascular angioplasty status with implants and grafts; Z92.3 Personal history of irradiation; Z92.21 Personal history of antineoplastic chemotherapy; Z91.81 History of falling; Z87.891 Personal history of nicotine dependence; Z86.73 Personal history of transient ischemic attack (TIA), and cerebral infarction without residual deficits; Z90.5 Acquired absence of kidney; Z85.528 Personal history of other malignant neoplasm of kidney; Z66 Do not resuscitate; Z85.820 Personal history of malignant melanoma of skin; Z82.49 Family history of ischemic heart disease and other diseases of the circulatory system; W19.XXXA Unspecified fall, initial encounter; Y92.9 Unspecified place or not applicable
CPT/HCPCS: 31623; 31624; 31625; 31627; 31629; 36415; 70450; 70553; 71045; 71250; 72070; 72157; 77300; 77301; 77334; 77338; 77373; 80048; 80053; 81003; 82330; 82550; 82553; 83735; 84100; 84443; 84484; 85025; 85027; 85610; 85730; 88104; 88108; 88173; 88305; 88341; 88342; 93005; 94760; 95816; 96361; 96374; 96375; 99285

== ENCOUNTER 2017-06-07 15:49 | Inpatient (IN) | payer MEDICARE ==
--- NOTE | 2017-06-07 16:17 | ED ---
SOB HPI - General Chief Complaint: Shortness of Breath Stated Complaint: ROBERTO Low O2 Time Seen by Provider: 06/07/17 16:00 Source: patient Mode of arrival: ambulatory Limitations: no limitations - History of Present Illness Initial Comments: This is a 71-year-old male with a history of lung cancer with metastasis to the brain and right hip presents to the department for hypoxia and generalized fatigue. Also history is obtained from the at bedside. The patient has difficulty remembering and has a history of dementia. The states that over the last few days she has noticed that his been increasingly more fatigued. He did have a fall a couple of days ago but she was able to catch him. She states that he did not have any head injury at that time. Since then he's been more weak and having difficult with ambulation. She is also noted that he's been little bit more short of breath and states that his chronic cough seems to be worsening. Occasionally he will spit up some phlegm. She states these felt warm at home however has not documented any fevers. The patient was over at [facility] and was about to get radiation treatment when he noted that he was hypoxic at 80%. He was sent to the emergency department for further evaluation. The patient does not add much to the history. Denies any pain. States that he does not feel short of breath at this time. - Related Data Home Medications Medication Instructions Recorded Confirmed Escitalopram [Lexapro] 20 mg PO DAILY 05/30/15 06/07/17 Gabapentin [Neurontin] 300 mg PO TID 05/30/15 06/07/17 ALPRAZolam [Xanax] 0.25 mg PO TID PRN 11/28/16 06/07/17 Ferrous Sulfate [Iron (65 MG 325 mg PO DAILY 11/28/16 06/07/17 Elemental)] Atorvastatin [Lipitor] 40 mg PO HS 05/16/17 06/07/17 Memantine [Namenda] 10 mg PO BID 05/16/17 06/07/17 Pramipexole [Mirapex] 0.5 mg PO TID 05/16/17 06/07/17 Dexamethasone 4 mg PO TID 06/07/17 06/07/17 Previous Rx's Medication Instructions Recorded Aspirin EC [Ecotrin Low Dose] 81 mg PO DAILY #30 tablet. 02/11/16 HYDROcodone/APAP 5-325MG [[place] 1 tab PO Q4HR PRN #30 tab 05/26/17 5-325] amLODIPine [Norvasc] 5 mg PO DAILY #30 tab 05/26/17 levETIRAcetam [Keppra] 500 mg PO BID #60 tab 05/26/17 Allergies Allergy/AdvReac Type Severity Reaction Status Date / Time adhesive Allergy Rash/Hives Verified 06/07/17 16:21 iodine Allergy Rash/Hives Verified 06/07/17 16:21 lansoprazole [From Prevacid] Allergy Unknown Verified 06/07/17 16:21 morphine Allergy Anaphylaxis Verified 06/07/17 16:21 Review of Systems ROS Statement: Those systems with pertinent positive or pertinent negative responses have been documented in the HPI. ROS Other: All systems not noted in ROS Statement are negative. Past Medical History Past Medical History: No Reported History, Cancer, CVA/TIA, GERD/Reflux, Hyperlipidemia, Hypertension, Memory Impairment, Musculoskeletal Disorder, Neurologic Disorder, Vascular Disorder Additional Past Medical History / Comment(s): Right renal cell cancer with nephrectomy/chemo and radiation, anemia, TIA, PVD, parkinsons dx. History of Any Multi-Drug Resistant Organisms: None Reported Additional Past Surgical History / Comment(s): right nephrectomy, stent in bilateral legs, colonoscopy but not complete due to structure issue.egd/bx Past Anesthesia/Blood Transfusion Reactions: No Reported Reaction Additional Past Anesthesia/Blood Transfusion Reaction / Comment(s): Pt has had blood transfusions in the past and recently without reaction. Past Psychological History: Anxiety, Depression Smoking Status: Former smoker Past Alcohol Use History: None Reported Past Drug Use History: None Reported - Past Family History Father Family Medical History: No Reported History Mother Family Medical History: Myocardial Infarction ([place]) General Exam - General Exam Comments Initial Comments: Constitutional: The patient appears sleepy however is arousable and will answer questions Appears comfortable Head: Normocephalic atraumatic Eyes: no conjunctival injection No scleral icterus EOMI, pupils are 4 mm reactive bilaterally Neck: No JVD Supple Heart: Regular rate rhythm normal S1-S2 no murmurs Lungs: Clear to auscultation bilaterally No wheezing No rales, coarse breath sounds bilaterally Abdomen: Soft nondistended nontender Extremities: Non edematous DP pulses intact Radial pulses intact Neuro: Patient is awake and alert and oriented to person and place, moves all extremities No focal neurologic deficits Psych: Appropriate mood and affect Limitations: no limitations Course Vital Signs 06/07/17 06/07/17 06/07/17 15:51 16:38 17:32 Temperature 97.8 F Pulse Rate 77 77 75 Respiratory 22 18 20 Rate Blood Pressure 93/62 134/89 107/56 O2 Sat by Pulse 90 L 97 100 Oximetry 06/07/17 06/07/17 17:35 18:36 Temperature Pulse Rate 73 Respiratory 20 18 Rate Blood Pressure 139/77 O2 Sat by Pulse 98 Oximetry - Reevaluation(s) Reevaluation #1: 06/07/17 16:17 EKG showing normal sinus rhythm with a rate of 77. There is no abnormal ST 7 changes or T-wave inversion. QTC is 423. Other intervals normal. No ectopy. Medical Decision Making - Medical Decision Making This is a 71-year-old male who presents emergency department for hypoxia and also some mental status changes and generalized weakness over the last few days. The patient had a full workup performed. X-ray was unremarkable. The patient did not have any significant wheezing on examination however did have some coarse breath sounds. He was given an IV dose of Solu-Medrol just to cover for COPD. CT of the head did show a left occipital metastasis however appeared unchanged from previous and there is some vasogenic edema but again appears unchanged. I do have a concern that the patient may have a pulmonary embolism however his states he has a severe ALLERGY to IV contrast and cannot get this. At this time I feel that he needs to stay for possible VQ scan in the morning. I do not feel that heparinizing at this time is worth the risk of bleeding intracranially and thus I'm going to hold off. I spoke with Dr. Welch who agrees with management at this point and accepts the admission. - Lab Data Result diagrams: 06/07/17 16:18 06/07/17 16:18 Lab Results 06/07/17 06/07/17 06/07/17 Range/Units 15:48 16:18 16:18 WBC 10.9 H (3.8-10.6) k/uL RBC 4.71 (4.30-5.90) m/uL Hgb 14.4 (13.0-17.5) gm/dL Hct 43.7 (39.0-53.0) % MCV 92.9 (80.0-100.0) fL MCH 30.5 (25.0-35.0) pg MCHC 32.9 (31.0-37.0) g/dL RDW 15.3 (11.5-15.5) % Plt Count 118 L (150-450) k/uL Neutrophils % 87 % Lymphocytes % 6 % Monocytes % 5 % Eosinophils % 1 % Basophils % 0 % Neutrophils # 9.6 H (1.3-7.7) k/uL Lymphocytes # 0.7 L (1.0-4.8) k/uL Monocytes # 0.6 (0-1.0) k/uL Eosinophils # 0.1 (0-0.7) k/uL Basophils # 0.0 (0-0.2) k/uL PT (9.0-12.0) sec INR (<1.2) APTT (22.0-30.0) sec VBG pH 7.31 (7.31-7.41) VBG pCO2 53 H (37-51) mmHg VBG HCO3 26 (24-28) mmol/L Sodium (137-145) mmol/L Potassium (3.5-5.1) mmol/L Chloride (98-107) mmol/L Carbon Dioxide (22-30) mmol/L Anion Gap mmol/L BUN (9-20) mg/dL Creatinine (0.66-1.25) mg/dL Est GFR (CKD-EPI)AfAm (>60 ml/min/1.73 sqM) Est GFR (CKD-EPI)NonAf (>60 ml/min/1.73 sqM) Glucose (74-99) mg/dL Plasma Lactic Acid [place] (0.7-2.0) mmol/L Calcium (8.4-10.2) mg/dL Magnesium (1.6-2.3) mg/dL Total Bilirubin (0.2-1.3) mg/dL AST (17-59) U/L ALT (21-72) U/L Alkaline Phosphatase (38-126) U/L CK-MB (CK-2) (0.0-2.4) ng/mL Troponin I (0.000-0.034) ng/mL NT-Pro-B Natriuret Pep pg/mL Total Protein (6.3-8.2) g/dL Albumin (3.5-5.0) g/dL Urine Color Yellow Urine Appearance Clear (Clear) Urine pH 6.0 (5.0-8.0) Ur Specific [place] 1.020 (1.001-1.035) Urine Protein Negative (Negative) Urine Glucose (UA) Negative (Negative) Urine Ketones Negative (Negative) Urine Blood Negative (Negative) Urine Nitrite Negative (Negative) Urine Bilirubin Negative (Negative) Urine Urobilinogen 3.0 (<2.0) mg/dL Ur Leukocyte Esterase Negative (Negative) 06/07/17 06/07/17 06/07/17 Range/Units 16:18 16:18 16:18 WBC (3.8-10.6) k/uL RBC (4.30-5.90) m/uL Hgb (13.0-17.5) gm/dL Hct (39.0-53.0) % MCV (80.0-100.0) fL MCH (25.0-35.0) pg MCHC (31.0-37.0) g/dL RDW (11.5-15.5) % Plt Count (150-450) k/uL Neutrophils % % Lymphocytes % % Monocytes % % Eosinophils % % Basophils % % Neutrophils # (1.3-7.7) k/uL Lymphocytes # (1.0-4.8) k/uL Monocytes # (0-1.0) k/uL Eosinophils # (0-0.7) k/uL Basophils # (0-0.2) k/uL PT (9.0-12.0) sec INR (<1.2) APTT (22.0-30.0) sec VBG pH (7.31-7.41) VBG pCO2 (37-51) mmHg VBG HCO3 (24-28) mmol/L Sodium 132 L (137-145) mmol/L Potassium 5.0 (3.5-5.1) mmol/L Chloride 98 (98-107) mmol/L Carbon Dioxide 24 (22-30) mmol/L Anion Gap 10 mmol/L BUN 42 H (9-20) mg/dL Creatinine 1.30 H (0.66-1.25) mg/dL Est GFR (CKD-EPI)AfAm 64 (>60 ml/min/1.73 sqM) Est GFR (CKD-EPI)NonAf 55 (>60 ml/min/1.73 sqM) Glucose 82 (74-99) mg/dL Plasma Lactic Acid [place] 1.0 (0.7-2.0) mmol/L Calcium 7.9 L (8.4-10.2) mg/dL Magnesium 2.3 (1.6-2.3) mg/dL Total Bilirubin 1.5 H (0.2-1.3) mg/dL AST 21 (17-59) U/L ALT 40 (21-72) U/L Alkaline Phosphatase 89 (38-126) U/L CK-MB (CK-2) 1.2 (0.0-2.4) ng/mL Troponin I <0.012 (0.000-0.034) ng/mL NT-Pro-B Natriuret Pep pg/mL Total Protein 5.4 L (6.3-8.2) g/dL Albumin 3.3 L (3.5-5.0) g/dL Urine Color Urine Appearance (Clear) Urine pH (5.0-8.0) Ur Specific [place] (1.001-1.035) Urine Protein (Negative) Urine Glucose (UA) (Negative) Urine Ketones (Negative) Urine Blood (Negative) Urine Nitrite (Negative) Urine Bilirubin (Negative) Urine Urobilinogen (<2.0) mg/dL Ur Leukocyte Esterase (Negative) 06/07/17 06/07/17 Range/Units 16:18 16:18 WBC (3.8-10.6) k/uL RBC (4.30-5.90) m/uL Hgb (13.0-17.5) gm/dL Hct (39.0-53.0) % MCV (80.0-100.0) fL MCH (25.0-35.0) pg MCHC (31.0-37.0) g/dL RDW (11.5-15.5) % Plt Count (150-450) k/uL Neutrophils % % Lymphocytes % % Monocytes % % Eosinophils % % Basophils % % Neutrophils # (1.3-7.7) k/uL Lymphocytes # (1.0-4.8) k/uL Monocytes # (0-1.0) k/uL Eosinophils # (0-0.7) k/uL Basophils # (0-0.2) k/uL PT 10.2 (9.0-12.0) sec INR 1.0 (<1.2) APTT 22.4 (22.0-30.0) sec VBG pH (7.31-7.41) VBG pCO2 (37-51) mmHg VBG HCO3 (24-28) mmol/L Sodium (137-145) mmol/L Potassium (3.5-5.1) mmol/L Chloride (98-107) mmol/L Carbon Dioxide (22-30) mmol/L Anion Gap mmol/L BUN (9-20) mg/dL Creatinine (0.66-1.25) mg/dL Est GFR (CKD-EPI)AfAm (>60 ml/min/1.73 sqM) Est GFR (CKD-EPI)NonAf (>60 ml/min/1.73 sqM) Glucose (74-99) mg/dL Plasma Lactic Acid [place] (0.7-2.0) mmol/L Calcium (8.4-10.2) mg/dL Magnesium (1.6-2.3) mg/dL Total Bilirubin (0.2-1.3) mg/dL AST (17-59) U/L ALT (21-72) U/L Alkaline Phosphatase (38-126) U/L CK-MB (CK-2) (0.0-2.4) ng/mL Troponin I (0.000-0.034) ng/mL NT-Pro-B Natriuret Pep 175 pg/mL Total Protein (6.3-8.2) g/dL Albumin (3.5-5.0) g/dL Urine Color Urine Appearance (Clear) Urine pH (5.0-8.0) Ur Specific [place] (1.001-1.035) Urine Protein (Negative) Urine Glucose (UA) (Negative) Urine Ketones (Negative) Urine Blood (Negative) Urine Nitrite (Negative) Urine Bilirubin (Negative) Urine Urobilinogen (<2.0) mg/dL Ur Leukocyte Esterase (Negative) Disposition Clinical Impression: Respiratory failure with hypoxia and hypercapnia, Encephalopathy Disposition: ADMITTED IP TO THIS HOSP Condition: Stable
[2017-06-07 16:36] LABS: VBG PH 7.31 (7.31-7.41)
[2017-06-07 16:38] LABS: Basophils % (A) 0 %; Eosinophils # (A) 0.1 k/uL (0-0.7); Eosinophils % (A) 1 %; HCT 43.7 % (39.0-53.0); HGB 14.4 gm/dL (13.0-17.5); Lymphocytes # (A) 0.7 k/uL (1.0-4.8); Lymphocytes % (A) 6 %; MCH 30.5 pg (25.0-35.0); MCHC 32.9 g/dL (31.0-37.0); MCV 92.9 fL (80.0-100.0); Mean Platelet Volume 7.1; Monocytes # (A) 0.6 k/uL (0-1.0); Monocytes % (A) 5 %; Neutrophils # (A) 9.6 k/uL (1.3-7.7); Neutrophils % (A) 87 %; Platelet Count 118 k/uL (150-450); RBC 4.71 m/uL (4.30-5.90); RDW 15.3 % (11.5-15.5); WBC 10.9 k/uL (3.8-10.6)
[2017-06-07 16:47] LABS: Albumin 3.3 g/dL (3.5-5.0); Calcium 7.9 mg/dL (8.4-10.2); Magnesium 2.3 mg/dL (1.6-2.3); Total Bilirubin 1.5 mg/dL (0.2-1.3); Total Protein 5.4 g/dL (6.3-8.2)
--- NOTE | 2017-06-07 16:47 | XR ---
EXAMINATION TYPE: XR chest 2V DATE OF EXAM: 06/07/2017 COMPARISON: 05/19/2017 HISTORY: Shortness of breath TECHNIQUE: Frontal and lateral views of the chest are obtained. FINDINGS: Scattered senescent parenchymal changes noted. Hyperinflation compatible with COPD. No evidence for infiltrate. No evidence for atelectasis. Heart size is stable. Mediastinal structures are stable and grossly unremarkable. No evidence for hilar prominence. Degenerative changes dorsal spine. IMPRESSION: 1. No evidence for acute pulmonary disease.
[2017-06-07 16:48] LABS: Partial Thromboplastin Time 22.4 sec (22.0-30.0); Prothrombin Time 10.2 sec (9.0-12.0)
[2017-06-07 17:07] LABS: Creatine Kinase MB 1.2 ng/mL (0.0-2.4); Troponin I <0.012 ng/mL (0.000-0.034)
[2017-06-07] MEDS ORDERED: diphenhydrAMINE 50 MG/ML 1 ML VIAL IVP STA (17:12)
[2017-06-07] MEDS ORDERED: methylPREDNISolone SOD SUCCI 125 MG/2 ML VIAL IV STA (17:12)
[2017-06-07] MEDS ORDERED: RX INFO: IV CONTRAST WAS GIVEN 1 EACH MISC MISCELLANE PRN (17:12)
[2017-06-07 17:55] LABS: Appearance,Urine Clear (Clear); Bilirubin,Urine Negative (Negative); Blood,Urine Negative (Negative); Color,Urine Yellow; Glucose,Urine (UA) Negative (Negative); Ketones,Urine Negative (Negative); Leukocyte Esterase,Urine Negative (Negative); Nitrite,Urine Negative (Negative); Protein,Urine Negative (Negative)
[2017-06-07] MEDS ORDERED: NALOXONE 0.4 MG/ML 1 ML VIAL IV PRN (18:43)
--- NOTE | 2017-06-07 19:04 | CT ---
EXAMINATION: CT brain wo con DATE AND TIME: 06/07/2017 6:28 PM ORDERING PROVIDER: Rocky Mcgraw DO CLINICAL INDICATION: MS changes weakness, history of lung carcinoma TECHNIQUE: Standard departmental protocol. DLP 1121 mGy-cm. COMPARISON: CT 05/16/2017; MRI 05/19/2019 DESCRIPTION: The previously seen left occipital metastatic lesion with associated vasogenic edema appears similar to the prior study. No more mass effect. No new pathology. The remainder of the intracranial examination is unremarkable. IMPRESSION: STABLE APPEARANCE; NO NEW PROCESS.
[2017-06-07] MEDS: MEMANTINE 10 MG TAB PO SCH (21:12)
[2017-06-07] MEDS: PRAMIPEXOLE 0.5 MG TAB PO SCH (21:12)
[2017-06-07] MEDS: ATORVASTATIN 40 MG TAB PO SCH (21:12)
[2017-06-07] MEDS: GABAPENTIN 300 MG CAP PO SCH (21:12)
[2017-06-07] MEDS: DEXAMETHASONE 2 MG TAB PO SCH (21:12)
[2017-06-07] MEDS: levETIRAcetam 500 MG TAB PO SCH (21:12)
[2017-06-07 21:23] VITALS: BMI 20.7
[2017-06-07] MEDS: HYDROcodone/APAP 5-325MG 1 EACH TAB PO PRN (23:21)
[2017-06-07 23:28] LABS: Creatine Kinase 25 U/L (55-170)
[2017-06-07 23:40] LABS: Troponin I <0.012 ng/mL (0.000-0.034)
[2017-06-08 05:41] LABS: Creatine Kinase 26 U/L (55-170)
[2017-06-08 05:53] LABS: Creatine Kinase MB 1.1 ng/mL (0.0-2.4); Troponin I <0.012 ng/mL (0.000-0.034)
[2017-06-08] MEDS: ASPIRIN 81 MG PO SCH (08:30)
[2017-06-08] MEDS: PRAMIPEXOLE 0.5 MG TAB PO SCH ×3 (08:31→21:09)
[2017-06-08] MEDS: levETIRAcetam 500 MG TAB PO SCH ×2 (08:31→21:09)
[2017-06-08] MEDS: FERROUS SULFATE 325 MG TAB PO SCH (08:31)
[2017-06-08] MEDS: ESCITALOPRAM 20 MG TAB PO SCH (08:31)
[2017-06-08] MEDS: MEMANTINE 10 MG TAB PO SCH ×2 (08:31→21:09)
[2017-06-08] MEDS: GABAPENTIN 300 MG CAP PO SCH ×3 (08:31→21:09)
[2017-06-08] MEDS: DEXAMETHASONE 2 MG TAB PO SCH ×3 (08:31→21:09)
[2017-06-08] MEDS: amLODIPine 5 MG TAB PO SCH (08:47)
--- NOTE | 2017-06-08 11:49 | P.HPIM ---
History of Present Illness H&P Date: 06/08/17 Chief Complaint: generalized weakness and shortness of breath This 71-year-old male with a known history of metastatic lung cancer with metastases to brain and hip, history of right renal cell cancer with nephrectomy and chemoradiation, hypertension, hyperlipidemia and memory impairment and Parkinson's disease and other multiple medical problems was brought to the hospital due to hypoxia and generalized weakness and fatigue while he was at his oncologist office.The states that over the last few days she has noticed that his been increasingly more fatigued. He did have a fall a couple of days ago but she was able to catch him. She states that he did not have any head injury at that time. Since then he's been more weak and having difficult with ambulation. She is also noted that he's been little bit more short of breath and states that his chronic cough seems to be worsening. Occasionally he will spit up some phlegm. She states these felt warm at home however has not documented any fevers. The patient was over at [facility] and was about to get radiation treatment when he noted that he was hypoxic at 80%. He was sent to the emergency department for further evaluation. The patient does not add much to the history. Denies any pain. States that he does not feel short of breath at this time. Chest x-ray negative. CT of the head showed left occipital metastasis however appeared unchanged from previous and there is some vasogenic edema but appears unchanged area did Patient was given a dose of Solu-Medrol 125 mg in the ER. Unlikely pulmonary embolism. His saturations became normal after breathing treatments and steroids. Currently patient is saturating well on room air. Pt. is a poor historian due to underlying dementia. Complete review of systems could not be up drain from the patient. The history was taken from the medical records and family at bedside. Past Medical History Past Medical History: No Reported History, Cancer, CVA/TIA, GERD/Reflux, Hyperlipidemia, Hypertension, Memory Impairment, Musculoskeletal Disorder, Neurologic Disorder, Vascular Disorder Additional Past Medical History / Comment(s): Right renal cell cancer with nephrectomy/chemo and radiation, anemia, TIA, PVD, parkinsons dx. History of Any Multi-Drug Resistant Organisms: None Reported Additional Past Surgical History / Comment(s): right nephrectomy, stent in bilateral legs, colonoscopy but not complete due to structure issue.egd/bx Past Anesthesia/Blood Transfusion Reactions: No Reported Reaction Additional Past Anesthesia/Blood Transfusion Reaction / Comment(s): Pt has had blood transfusions in the past and recently without reaction. Past Psychological History: Anxiety, Depression Additional Psychological History / Comment(s): Pt resides with his spouse. He uses no assistive device. His spouse drives. Currently, no home care services. Smoking Status: Former smoker Past Alcohol Use History: None Reported Additional Past Alcohol Use History / Comment(s): Pt states he started smoking in 1961 and quit in May,. Past Drug Use History: None Reported - Past Family History Father Family Medical History: No Reported History Mother Family Medical History: Myocardial Infarction ([place]) Medications and Allergies Home Medications Medication Instructions Recorded Confirmed Type Escitalopram [Lexapro] 20 mg PO DAILY 05/30/15 06/07/17 History Gabapentin [Neurontin] 300 mg PO TID 05/30/15 06/07/17 History Aspirin EC [Ecotrin Low Dose] 81 mg PO DAILY #30 tablet. 02/11/16 06/07/17 Rx ALPRAZolam [Xanax] 0.25 mg PO TID PRN 11/28/16 06/07/17 History Ferrous Sulfate [Iron (65 MG 325 mg PO DAILY 11/28/16 06/07/17 History Elemental)] Atorvastatin [Lipitor] 40 mg PO HS 05/16/17 06/07/17 History Memantine [Namenda] 10 mg PO BID 05/16/17 06/07/17 History Pramipexole [Mirapex] 0.5 mg PO TID 05/16/17 06/07/17 History HYDROcodone/APAP 5-325MG [[place] 1 tab PO Q4HR PRN #30 tab 05/26/17 06/07/17 Rx 5-325] amLODIPine [Norvasc] 5 mg PO DAILY #30 tab 05/26/17 06/07/17 Rx levETIRAcetam [Keppra] 500 mg PO BID #60 tab 05/26/17 06/07/17 Rx Dexamethasone 4 mg PO TID 06/07/17 06/07/17 History Allergies Allergy/AdvReac Type Severity Reaction Status Date / Time adhesive Allergy Rash/Hives Verified 06/07/17 16:21 iodine Allergy Rash/Hives Verified 05/02/18 16:21 lansoprazole [From Prevacid] Allergy Unknown Verified 06/07/17 16:21 morphine Allergy Anaphylaxis Verified 06/07/17 16:21 Physical Exam Vitals: Vital Signs Temp Pulse Pulse Resp BP BP Pulse Ox 06/08/17 08:00 74 16 06/08/17 07:50 97.5 F L 74 16 175/90 99 06/07/17 22:35 98.4 F 79 16 139/63 99 06/07/17 19:07 97.3 F L 06/07/17 18:36 73 18 139/77 98 06/07/17 17:35 20 06/07/17 17:32 75 20 107/56 100 06/07/17 16:38 77 18 134/89 97 06/07/17 15:51 97.8 F 77 22 93/62 90 L Intake and Output 06/07/17 06/08/17 06/08/17 22:59 06:59 14:59 Other: Voiding Method Toilet Toilet Urinal Urinal Diaper Diaper # Voids 1 1 1 Weight 65.771 kg 65.771 kg PHYSICAL EXAMINATION: Patient is lying in the bed comfortably, no acute distress, awake alert and oriented. She is lethargic. HEENT: Normocephalic. Neck is supple. Pupils reactive. Nostrils clear. Oral cavity is moist. Ears reveal no drainage. Neck reveals no JVD, carotid bruits, or thyromegaly. CHEST EXAMINATION: Trachea is central. Symmetrical expansion. Bilateral diminished air entry and rhonchi positive. CARDIAC: Normal S1, S2 with no gallops. No murmurs ABDOMEN: Soft. Bowel sounds normal. No organomegaly. No abdominal bruits. Extremities: reveal no edema. No clubbing or cyanosis Neurologically awake, alert, oriented x2-3 with well-coordinated movements. No focal deficits noted Skin: No rash or skin lesions. Psychiatric: Cooperative. Could not be assessed completely Musculoskeletal: No joint swelling or deformity. Normal range of motion. Results CBC & Chem 7: 06/07/17 16:18 06/07/17 16:18 Labs: Abnormal Lab Results - Last 24 Hours (Table) 06/07/17 06/07/17 06/07/17 Range/Units 16:18 16:18 16:18 WBC 10.9 H (3.8-10.6) k/uL Plt Count 118 L (150-450) k/uL Neutrophils # 9.6 H (1.3-7.7) k/uL Lymphocytes # 0.7 L (1.0-4.8) k/uL VBG pCO2 53 H (37-51) mmHg Sodium 132 L (137-145) mmol/L BUN 42 H (9-20) mg/dL Creatinine 1.30 H (0.66-1.25) mg/dL Calcium 7.9 L (8.4-10.2) mg/dL Total Bilirubin 1.5 H (0.2-1.3) mg/dL Total Creatine Kinase (55-170) U/L Total Protein 5.4 L (6.3-8.2) g/dL Albumin 3.3 L (3.5-5.0) g/dL 06/07/17 06/08/17 Range/Units 22:23 04:09 WBC (3.8-10.6) k/uL Plt Count (150-450) k/uL Neutrophils # (1.3-7.7) k/uL Lymphocytes # (1.0-4.8) k/uL VBG pCO2 (37-51) mmHg Sodium (137-145) mmol/L BUN (9-20) mg/dL Creatinine (0.66-1.25) mg/dL Calcium (8.4-10.2) mg/dL Total Bilirubin (0.2-1.3) mg/dL Total Creatine Kinase 25 L 26 L (55-170) U/L Total Protein (6.3-8.2) g/dL Albumin (3.5-5.0) g/dL Thrombosis Risk Factor Assmnt - DVT/VTE Prophylaxis DVT/VTE Prophylaxis: Pharmacologic Prophylaxis ordered - Choose All That Apply Other Risk Factors: Yes Each Risk Factor Represents 2 Points: Age 61-74 years Thrombosis Risk Factor Assessment Total Risk Factor Score: 2 Thrombosis Risk Factor Assessment Level: Low Risk Assessment and Plan Assessment: Acute hypoxic and hypercapnic respiratory failure likely due to bronchospasm and possible underlying COPD with exacerbation Generalized weakness Hypovolemic hyponatremia Acute kidney injury most likely prerenal Metastatic lung cancer with metastases to brain and hip History of right nephrectomy due to renal cell cancer status post chemoradiation Hypertension Hyperlipidemia Memory impairment and Parkinson's disease Peripheral vascular disease bilateral leg stents History of CVA/TIA Previous history of smoking DVT prophylaxis Plan: Patient will be continued on breathing treatments and encourage oral intake. Continue with dexamethasone due to vasogenic edema in the brain. Continue the home medications and follow closely. Discussed with family at bedside in detail. Further recommendations based on the clinical course. Anticipate discharge next 24 hours more clinical improvement. Patient is currently saturating well on room air. Time with Patient: Greater than 30
[2017-06-08] MEDS: HYDROcodone/APAP 5-325MG 1 EACH TAB PO PRN (12:46)
[2017-06-08] MEDS: HEPARIN SODIUM,PORCINE 5,000 UNIT/ML 1 ML VIAL SQ SCH ×2 (16:22→23:55)
[2017-06-08] MEDS: IPRATROPIUM-ALBUTEROL 3 ML NEB INHALATION SCH ×3 (19:34→19:36)
[2017-06-08] MEDS: BUDESONIDE 0.5 MG/2 ML NEBU INHALATION SCH (19:37)
[2017-06-08] MEDS: ATORVASTATIN 40 MG TAB PO SCH (21:09)
[2017-06-09 07:10] LABS: Basophils % (A) 0 %; Eosinophils % (A) 0 %; HCT 44.2 % (39.0-53.0); HGB 14.5 gm/dL (13.0-17.5); Lymphocytes # (A) 0.3 k/uL (1.0-4.8); Lymphocytes % (A) 3 %; MCH 30.5 pg (25.0-35.0); MCHC 32.8 g/dL (31.0-37.0); MCV 92.8 fL (80.0-100.0); Mean Platelet Volume 7.3; Monocytes # (A) 0.4 k/uL (0-1.0); Monocytes % (A) 5 %; Neutrophils # (A) 8.1 k/uL (1.3-7.7); Neutrophils % (A) 92 %; Platelet Count 111 k/uL (150-450); RBC 4.76 m/uL (4.30-5.90); RDW 15.1 % (11.5-15.5); WBC 8.9 k/uL (3.8-10.6)
[2017-06-09] MEDS: IPRATROPIUM-ALBUTEROL 3 ML NEB INHALATION SCH ×4 (07:10→20:00)
[2017-06-09] MEDS: BUDESONIDE 0.5 MG/2 ML NEBU INHALATION SCH ×2 (07:10→20:00)
[2017-06-09 07:20] LABS: Calcium 8.1 mg/dL (8.4-10.2); Potassium 5.5 mmol/L (3.5-5.1)
[2017-06-09] MEDS: amLODIPine 5 MG TAB PO SCH (08:29)
[2017-06-09] MEDS: DEXAMETHASONE 2 MG TAB PO SCH ×3 (08:29→21:05)
[2017-06-09] MEDS: FERROUS SULFATE 325 MG TAB PO SCH (08:29)
[2017-06-09] MEDS: ESCITALOPRAM 20 MG TAB PO SCH (08:29)
[2017-06-09] MEDS: levETIRAcetam 500 MG TAB PO SCH ×2 (08:29→21:05)
[2017-06-09] MEDS: GABAPENTIN 300 MG CAP PO SCH ×3 (08:29→21:05)
[2017-06-09] MEDS: MEMANTINE 10 MG TAB PO SCH ×2 (08:30→21:05)
[2017-06-09] MEDS: HEPARIN SODIUM,PORCINE 5,000 UNIT/ML 1 ML VIAL SQ SCH ×2 (08:30→15:49)
[2017-06-09] MEDS: PRAMIPEXOLE 0.5 MG TAB PO SCH ×3 (08:30→21:05)
[2017-06-09] MEDS: ASPIRIN 81 MG PO SCH (08:30)
[2017-06-09] MEDS: HYDROcodone/APAP 5-325MG 1 EACH TAB PO PRN (08:36)
[2017-06-09] MEDS: ATORVASTATIN 40 MG TAB PO SCH (21:05)
[2017-06-10] MEDS: HEPARIN SODIUM,PORCINE 5,000 UNIT/ML 1 ML VIAL SQ SCH ×3 (00:40→16:08)
--- NOTE | 2017-06-10 01:45 | P.PN ---
Subjective Progress Note Date: 06/09/17 Principal diagnosis: Hypoxic respiratory failure and hypotension This 71-year-old male with a known history of metastatic lung cancer with metastases to brain and hip, history of right renal cell cancer with nephrectomy and chemoradiation, hypertension, hyperlipidemia and memory impairment and Parkinson's disease and other multiple medical problems was brought to the hospital due to hypoxia and generalized weakness and fatigue while he was at his oncologist office.The states that over the last few days she has noticed that his been increasingly more fatigued. He did have a fall a couple of days ago but she was able to catch him. She states that he did not have any head injury at that time. Since then he's been more weak and having difficult with ambulation. She is also noted that he's been little bit more short of breath and states that his chronic cough seems to be worsening. Occasionally he will spit up some phlegm. She states these felt warm at home however has not documented any fevers. The patient was over at [facility] and was about to get radiation treatment when he noted that he was hypoxic at 80%. He was sent to the emergency department for further evaluation. The patient does not add much to the history. Denies any pain. States that he does not feel short of breath at this time. Chest x-ray negative. CT of the head showed left occipital metastasis however appeared unchanged from previous and there is some vasogenic edema but appears unchanged area did Patient was given a dose of Solu-Medrol 125 mg in the ER. Unlikely pulmonary embolism. His saturations became normal after breathing treatments and steroids. Currently patient is saturating well on room air. Pt. is a poor historian due to underlying dementia. Complete review of systems could not be up drain from the patient. The history was taken from the medical records and family at bedside. 06/09/2017 Patient is more awake and oriented today. Patient is undergoing radiation radiation today. Otherwise no fever no chills. Not able tolerate oral diet very well due to poor appetite. No fever no chills. No chest pain or shortness of breath. Anticipate discharge next 24 hours. After radiotherapy Discussed with his at bedside. All other review of systems negative except as above Current medications reviewed Objective - Vital Signs Vital signs: Vital Signs Temp 98.1 F 06/09/17 07:33 Pulse 79 06/09/17 11:02 Resp 16 06/09/17 08:00 BP 127/77 06/09/17 07:33 Pulse Ox 98 06/09/17 07:33 Intake & Output 06/08/17 06/09/17 06/09/17 18:59 06:59 18:59 Intake Total 620 250 200 Balance 620 250 200 Weight 65.771 kg 65.771 kg Intake: Oral 620 250 200 Other: Voiding Method Toilet Toilet Toilet Urinal Urinal Urinal Diaper Diaper Diaper # Voids 1 1 - Exam PHYSICAL EXAMINATION: Patient is lying in the bed comfortably, no acute distress, awake alert and oriented. But seems very lethargic, able to communicate HEENT: Normocephalic. Neck is supple. Pupils reactive. Nostrils clear. Oral cavity is moist. Ears reveal no drainage. Neck reveals no JVD, carotid bruits, or thyromegaly. CHEST EXAMINATION: Trachea is central. Symmetrical expansion. Lung fischer clear to auscultation and percussion. CARDIAC: Normal S1, S2 with no gallops. No murmurs ABDOMEN: Soft. Bowel sounds normal. No organomegaly. No abdominal bruits. Extremities: reveal no edema. No clubbing or cyanosis Neurologically awake, alert, oriented x3 with well-coordinated movements. No focal deficits noted Skin: No rash or skin lesions. Psychiatric: Cooperative. Nonsuicidal Musculoskeletal: No joint swelling or deformity. Normal range of motion. - Labs CBC & Chem 7: 06/09/17 06:59 06/09/17 06:59 Labs: Abnormal Lab Results - Last 24 Hours (Table) 06/09/17 06/09/17 Range/Units 06:59 06:59 Plt Count 111 L (150-450) k/uL Neutrophils # 8.1 H (1.3-7.7) k/uL Lymphocytes # 0.3 L (1.0-4.8) k/uL Sodium 131 L (137-145) mmol/L Potassium 5.5 H (3.5-5.1) mmol/L BUN 39 H (9-20) mg/dL Glucose 104 H (74-99) mg/dL Calcium 8.1 L (8.4-10.2) mg/dL Microbiology - Last 24 Hours (Table) 06/07/17 16:18 Blood Culture - Preliminary Blood No Growth after 24 hours Assessment and Plan Assessment: Acute hypoxic and hypercapnic respiratory failure likely due to bronchospasm and possible underlying COPD with exacerbation Generalized weakness Hypovolemic hyponatremia Acute kidney injury most likely prerenal Metastatic lung cancer with metastases to brain and hip History of right nephrectomy due to renal cell cancer status post chemoradiation Hypertension Hyperlipidemia Memory impairment and Parkinson's disease Peripheral vascular disease bilateral leg stents History of CVA/TIA Previous history of smoking DVT prophylaxis Plan: Patient will be continued on breathing treatments and encourage oral intake. Continue with dexamethasone due to vasogenic edema in the brain. Continue the home medications and follow closely. Radiation done on 06/09/2017 Discussed with family at bedside in detail. Further recommendations based on the clinical course. Anticipate discharge next 24 hours more clinical improvement. Patient is currently saturating well on room air. Time with Patient: Greater than 30
[2017-06-10 07:42] LABS: Potassium 5.4 mmol/L (3.5-5.1)
[2017-06-10 07:44] LABS: Basophils % (A) 0 %; Eosinophils % (A) 0 %; HCT 41.1 % (39.0-53.0); HGB 13.7 gm/dL (13.0-17.5); Lymphocytes # (A) 0.2 k/uL (1.0-4.8); Lymphocytes % (A) 2 %; MCHC 33.3 g/dL (31.0-37.0); MCV 93.2 fL (80.0-100.0); Mean Platelet Volume 6.9; Monocytes # (A) 0.4 k/uL (0-1.0); Monocytes % (A) 4 %; Neutrophils # (A) 8.4 k/uL (1.3-7.7); Neutrophils % (A) 93 %; Platelet Count 110 k/uL (150-450); RBC 4.41 m/uL (4.30-5.90); RDW 15.6 % (11.5-15.5); WBC 9.1 k/uL (3.8-10.6)
[2017-06-10] MEDS: ASPIRIN 81 MG PO SCH (08:35)
[2017-06-10] MEDS: PRAMIPEXOLE 0.5 MG TAB PO SCH ×3 (08:35→21:10)
[2017-06-10] MEDS: amLODIPine 5 MG TAB PO SCH (08:35)
[2017-06-10] MEDS: levETIRAcetam 500 MG TAB PO SCH ×2 (08:35→21:10)
[2017-06-10] MEDS: DEXAMETHASONE 2 MG TAB PO SCH ×3 (08:35→21:10)
[2017-06-10] MEDS: MEMANTINE 10 MG TAB PO SCH ×2 (08:35→21:10)
[2017-06-10] MEDS: GABAPENTIN 300 MG CAP PO SCH ×3 (08:35→21:09)
[2017-06-10] MEDS: FERROUS SULFATE 325 MG TAB PO SCH (08:35)
[2017-06-10] MEDS: ESCITALOPRAM 20 MG TAB PO SCH (08:35)
[2017-06-10] MEDS: IPRATROPIUM-ALBUTEROL 3 ML NEB INHALATION SCH ×4 (08:48→20:20)
[2017-06-10] MEDS: BUDESONIDE 0.5 MG/2 ML NEBU INHALATION SCH ×2 (08:48→20:20)
[2017-06-10] MEDS: SODIUM CHLORIDE 0.9% 1,000 ML IV SCH (11:41)
[2017-06-10 15:36] VITALS: RESP 16
[2017-06-10] MEDS: HYDROcodone/APAP 5-325MG 1 EACH TAB PO PRN ×2 (16:05→21:20)
[2017-06-10] MEDS: DRONABINOL 2.5 MG CAP PO SCH (17:45)
[2017-06-10] MEDS ORDERED: MEGESTROL 40 MG TAB PO SCH (18:00)
[2017-06-10] MEDS: ATORVASTATIN 40 MG TAB PO SCH (21:10)
--- NOTE | 2017-06-10 22:41 | P.PN ---
Subjective Progress Note Date: 06/10/17 Principal diagnosis: Hypoxic respiratory failure and hypotension This 71-year-old male with a known history of metastatic lung cancer with metastases to brain and hip, history of right renal cell cancer with nephrectomy and chemoradiation, hypertension, hyperlipidemia and memory impairment and Parkinson's disease and other multiple medical problems was brought to the hospital due to hypoxia and generalized weakness and fatigue while he was at his oncologist office.The states that over the last few days she has noticed that his been increasingly more fatigued. He did have a fall a couple of days ago but she was able to catch him. She states that he did not have any head injury at that time. Since then he's been more weak and having difficult with ambulation. She is also noted that he's been little bit more short of breath and states that his chronic cough seems to be worsening. Occasionally he will spit up some phlegm. She states these felt warm at home however has not documented any fevers. The patient was over at [facility] and was about to get radiation treatment when he noted that he was hypoxic at 80%. He was sent to the emergency department for further evaluation. The patient does not add much to the history. Denies any pain. States that he does not feel short of breath at this time. Chest x-ray negative. CT of the head showed left occipital metastasis however appeared unchanged from previous and there is some vasogenic edema but appears unchanged area did Patient was given a dose of Solu-Medrol 125 mg in the ER. Unlikely pulmonary embolism. His saturations became normal after breathing treatments and steroids. Currently patient is saturating well on room air. Pt. is a poor historian due to underlying dementia. Complete review of systems could not be up drain from the patient. The history was taken from the medical records and family at bedside. 06/09/2017 Patient is more awake and oriented today. Patient is undergoing radiation radiation today. Otherwise no fever no chills. Not able tolerate oral diet very well due to poor appetite. No fever no chills. No chest pain or shortness of breath. Anticipate discharge next 24 hours or after radiotherapy 06/10/2017 Patient is awake and oriented. Otherwise patient having very poor oral intake. Started on Marinol. As well as protein milkshakes were ordered.. Patient does have increased creatinine level today and volume depletion. Slightly hyperkalemic. Discussed with his at bedside in detail. We'll continue the one-to-one feeding and follow closely. Repeat labs in a.m. Anticipate discharge home with home care or rehab. Discussed with his at bedside. All other review of systems negative except as above Current medications reviewed Objective - Vital Signs Vital signs: Vital Signs Temp 98.2 F 06/10/17 15:00 Pulse 84 06/10/17 20:40 Resp 16 06/10/17 22:23 BP 143/64 06/10/17 15:00 Pulse Ox 98 06/10/17 15:00 Intake & Output 06/10/17 06/10/17 06/11/17 06:59 18:59 06:59 Intake Total 250 585 450 Balance 250 585 450 Intake: Intake, IV Titration 225 300 Amount Sodium Chloride 0.9% 1, 225 300 000 ml @ 75 mls/hr IV . [id number] Rx#:[id number] Oral 250 360 150 Other: Voiding Method Toilet Toilet Toilet Urinal Diaper # Voids 1 2 1 - Exam PHYSICAL EXAMINATION: Patient is lying in the bed comfortably, no acute distress, awake alert and oriented. But seems very lethargic, able to communicate HEENT: Normocephalic. Neck is supple. Pupils reactive. Nostrils clear. Oral cavity is moist. Ears reveal no drainage. Neck reveals no JVD, carotid bruits, or thyromegaly. CHEST EXAMINATION: Trachea is central. Symmetrical expansion. Lung fischer clear to auscultation and percussion. CARDIAC: Normal S1, S2 with no gallops. No murmurs ABDOMEN: Soft. Bowel sounds normal. No organomegaly. No abdominal bruits. Extremities: reveal no edema. No clubbing or cyanosis Neurologically awake, alert, oriented x3 with well-coordinated movements. No focal deficits noted Skin: No rash or skin lesions. Psychiatric: Cooperative. Nonsuicidal Musculoskeletal: No joint swelling or deformity. Normal range of motion. - Labs CBC & Chem 7: 06/10/17 07:04 06/10/17 07:04 Labs: Abnormal Lab Results - Last 24 Hours (Table) 06/10/17 06/10/17 Range/Units 07:04 07:04 RDW 15.6 H (11.5-15.5) % Plt Count 110 L (150-450) k/uL Neutrophils # 8.4 H (1.3-7.7) k/uL Lymphocytes # 0.2 L (1.0-4.8) k/uL Sodium 129 L (137-145) mmol/L Potassium 5.4 H (3.5-5.1) mmol/L Chloride 97 L (98-107) mmol/L BUN 43 H (9-20) mg/dL Creatinine 1.27 H (0.66-1.25) mg/dL Calcium 8.0 L (8.4-10.2) mg/dL Microbiology - Last 24 Hours (Table) 06/07/17 16:18 Blood Culture - Preliminary Blood No Growth after 72 hours Assessment and Plan Assessment: Acute hypoxic and hypercapnic respiratory failure likely due to bronchospasm and possible underlying COPD with exacerbation Generalized weakness Hypovolemic hyponatremia Acute kidney injury most likely prerenal Mild hyperkalemia due to acute kidney injury Metastatic lung cancer with metastases to brain and hip History of right nephrectomy due to renal cell cancer status post chemoradiation Hypertension Hyperlipidemia Memory impairment and Parkinson's disease Peripheral vascular disease bilateral leg stents History of CVA/TIA Previous history of smoking DVT prophylaxis Plan: Patient will be continued on breathing treatments and encourage oral intake. Continue with dexamethasone due to vasogenic edema in the brain. Continue the home medications and follow closely. Radiation done on 06/09/2017 Discussed with family at bedside in detail. Further recommendations based on the clinical course. Anticipate discharge next 24 hours more clinical improvement. Patient is currently saturating well on room air. Time with Patient: Greater than 30
[2017-06-11] MEDS: HEPARIN SODIUM,PORCINE 5,000 UNIT/ML 1 ML VIAL SQ SCH ×3 (00:18→16:30)
[2017-06-11] MEDS: SODIUM CHLORIDE 0.9% 1,000 ML IV SCH ×2 (01:29→21:56)
[2017-06-11 07:44] LABS: Basophils % (A) 0 %; Eosinophils % (A) 0 %; HCT 38.3 % (39.0-53.0); HGB 13.1 gm/dL (13.0-17.5); Lymphocytes # (A) 0.2 k/uL (1.0-4.8); Lymphocytes % (A) 2 %; MCH 31.6 pg (25.0-35.0); MCHC 34.1 g/dL (31.0-37.0); MCV 92.7 fL (80.0-100.0); Mean Platelet Volume 6.8; Monocytes # (A) 0.4 k/uL (0-1.0); Monocytes % (A) 5 %; Neutrophils # (A) 7.4 k/uL (1.3-7.7); Neutrophils % (A) 92 %; RBC 4.13 m/uL (4.30-5.90); RDW 15.7 % (11.5-15.5); WBC 8.1 k/uL (3.8-10.6)
[2017-06-11 07:50] LABS: Calcium 7.7 mg/dL (8.4-10.2); Potassium 5.1 mmol/L (3.5-5.1)
[2017-06-11] MEDS: BUDESONIDE 0.5 MG/2 ML NEBU INHALATION SCH ×2 (07:53→20:30)
[2017-06-11] MEDS: IPRATROPIUM-ALBUTEROL 3 ML NEB INHALATION SCH ×4 (07:53→20:30)
[2017-06-11] MEDS: DRONABINOL 2.5 MG CAP PO SCH ×2 (08:19→16:30)
[2017-06-11] MEDS: FERROUS SULFATE 325 MG TAB PO SCH (08:19)
[2017-06-11] MEDS: ASPIRIN 81 MG PO SCH (08:20)
[2017-06-11] MEDS: PRAMIPEXOLE 0.5 MG TAB PO SCH ×3 (08:20→21:55)
[2017-06-11] MEDS: DEXAMETHASONE 2 MG TAB PO SCH ×3 (08:20→21:55)
[2017-06-11] MEDS: MEMANTINE 10 MG TAB PO SCH ×2 (08:20→21:55)
[2017-06-11] MEDS: ESCITALOPRAM 20 MG TAB PO SCH (08:20)
[2017-06-11] MEDS: levETIRAcetam 500 MG TAB PO SCH ×2 (08:20→21:55)
[2017-06-11] MEDS: GABAPENTIN 300 MG CAP PO SCH ×3 (08:20→21:55)
[2017-06-11] MEDS: amLODIPine 5 MG TAB PO SCH (08:20)
[2017-06-11 08:54] LABS: Hypersegmented Neutrophils Present; Platelet Count 95 k/uL (150-450); Poikilocytosis (M) Present
[2017-06-11] MEDS: HYDROcodone/APAP 5-325MG 1 EACH TAB PO PRN (16:37)
[2017-06-11] MEDS: ATORVASTATIN 40 MG TAB PO SCH (21:55)
--- NOTE | 2017-06-12 00:31 | P.PN ---
Subjective Progress Note Date: 06/11/17 Principal diagnosis: Hypoxic respiratory failure and hypotension This 71-year-old male with a known history of metastatic lung cancer with metastases to brain and hip, history of right renal cell cancer with nephrectomy and chemoradiation, hypertension, hyperlipidemia and memory impairment and Parkinson's disease and other multiple medical problems was brought to the hospital due to hypoxia and generalized weakness and fatigue while he was at his oncologist office.The states that over the last few days she has noticed that his been increasingly more fatigued. He did have a fall a couple of days ago but she was able to catch him. She states that he did not have any head injury at that time. Since then he's been more weak and having difficult with ambulation. She is also noted that he's been little bit more short of breath and states that his chronic cough seems to be worsening. Occasionally he will spit up some phlegm. She states these felt warm at home however has not documented any fevers. The patient was over at [facility] and was about to get radiation treatment when he noted that he was hypoxic at 80%. He was sent to the emergency department for further evaluation. The patient does not add much to the history. Denies any pain. States that he does not feel short of breath at this time. Chest x-ray negative. CT of the head showed left occipital metastasis however appeared unchanged from previous and there is some vasogenic edema but appears unchanged area did Patient was given a dose of Solu-Medrol 125 mg in the ER. Unlikely pulmonary embolism. His saturations became normal after breathing treatments and steroids. Currently patient is saturating well on room air. Pt. is a poor historian due to underlying dementia. Complete review of systems could not be up drain from the patient. The history was taken from the medical records and family at bedside. 06/09/2017 Patient is more awake and oriented today. Patient is undergoing radiation radiation today. Otherwise no fever no chills. Not able tolerate oral diet very well due to poor appetite. No fever no chills. No chest pain or shortness of breath. Anticipate discharge next 24 hours or after radiotherapy 06/10/2017 Patient is awake and oriented. Otherwise patient having very poor oral intake. Started on Marinol. As well as protein milkshakes were ordered.. Patient does have increased creatinine level today and volume depletion. Slightly hyperkalemic. Discussed with his at bedside in detail. We'll continue the one-to-one feeding and follow closely. Repeat labs in a.m. Anticipate discharge home with home care or rehab. 06/11/2017 Patient is awake and alert and oriented. Blood pressure is stable. Otherwise oral intake slightly improved. Continued on IV fluids. Patient does have improvement in renal function and hyperkalemia resolved. Anticipate discharged to home with home care are rehab tomorrow. All other review of systems negative except as above Current medications reviewed Objective - Vital Signs Vital signs: Vital Signs Temp 98.1 F 06/11/17 07:38 Pulse 84 06/11/17 13:24 Resp 16 06/11/17 08:00 BP 126/71 06/11/17 07:38 Pulse Ox 95 06/11/17 07:38 Intake & Output 06/10/17 06/11/17 06/11/17 18:59 06:59 18:59 Intake Total 585 1050 525 Balance 585 1050 525 Intake: Intake, IV Titration 225 900 525 Amount Sodium Chloride 0.9% 1, 225 900 525 000 ml @ 75 mls/hr IV . [id number] [facility] Rx#:[id number] Oral 360 150 Other: Voiding Method Toilet Toilet Toilet # Voids 2 1 - Exam PHYSICAL EXAMINATION: Patient is lying in the bed comfortably, no acute distress, awake alert and oriented. But seems very lethargic, able to communicate HEENT: Normocephalic. Neck is supple. Pupils reactive. Nostrils clear. Oral cavity is moist. Ears reveal no drainage. Neck reveals no JVD, carotid bruits, or thyromegaly. CHEST EXAMINATION: Trachea is central. Symmetrical expansion. Lung fischer clear to auscultation and percussion. CARDIAC: Normal S1, S2 with no gallops. No murmurs ABDOMEN: Soft. Bowel sounds normal. No organomegaly. No abdominal bruits. Extremities: reveal no edema. No clubbing or cyanosis Neurologically awake, alert, oriented x3 with well-coordinated movements. No focal deficits noted Skin: No rash or skin lesions. Psychiatric: Cooperative. Nonsuicidal Musculoskeletal: No joint swelling or deformity. Normal range of motion. - Labs CBC & Chem 7: 06/11/17 07:01 06/11/17 07:01 Labs: Abnormal Lab Results - Last 24 Hours (Table) 06/11/17 06/11/17 Range/Units 07:01 07:01 RBC 4.13 L (4.30-5.90) m/uL Hct 38.3 L (39.0-53.0) % RDW 15.7 H (11.5-15.5) % Plt Count 95 L (150-450) k/uL Lymphocytes # 0.2 L (1.0-4.8) k/uL Sodium 130 L (137-145) mmol/L Carbon Dioxide 20 L (22-30) mmol/L BUN 37 H (9-20) mg/dL Calcium 7.7 L (8.4-10.2) mg/dL Microbiology - Last 24 Hours (Table) 06/07/17 16:18 Blood Culture - Preliminary Blood No Growth after 72 hours Assessment and Plan Assessment: Acute hypoxic and hypercapnic respiratory failure likely due to bronchospasm and possible underlying COPD with exacerbation Generalized weakness Poor whirling takes Hypovolemic hyponatremia Acute kidney injury most likely prerenal Mild hyperkalemia due to acute kidney injury Metastatic lung cancer with metastases to brain and hip. Currently undergoing radiation last on 06/10/2017 History of right nephrectomy due to renal cell cancer status post chemoradiation Hypertension Hyperlipidemia Memory impairment and Parkinson's disease Peripheral vascular disease bilateral leg stents History of CVA/TIA Previous history of smoking DVT prophylaxis Plan: Patient will be continued on breathing treatments and encourage oral intake. Continue with dexamethasone due to vasogenic edema in the brain. Continue the home medications and follow closely. Radiation done on 06/10/2017 Discussed with family at bedside in detail. Further recommendations based on the clinical course. Anticipate discharge next 24 hours more clinical improvement. Patient is currently saturating well on room air. Time with Patient: Greater than 30
[2017-06-12] MEDS: HEPARIN SODIUM,PORCINE 5,000 UNIT/ML 1 ML VIAL SQ SCH ×4 (00:51→22:36)
[2017-06-12] MEDS: BUDESONIDE 0.5 MG/2 ML NEBU INHALATION SCH ×2 (08:20→20:02)
[2017-06-12] MEDS: IPRATROPIUM-ALBUTEROL 3 ML NEB INHALATION SCH ×4 (08:20→20:13)
[2017-06-12] MEDS: SODIUM CHLORIDE 0.9% 1,000 ML IV SCH ×2 (09:03→17:39)
[2017-06-12] MEDS: DEXAMETHASONE 2 MG TAB PO SCH ×3 (09:06→22:34)
[2017-06-12] MEDS: MEMANTINE 10 MG TAB PO SCH ×2 (09:06→22:34)
[2017-06-12] MEDS: ASPIRIN 81 MG PO SCH (09:06)
[2017-06-12] MEDS: levETIRAcetam 500 MG TAB PO SCH ×2 (09:06→22:34)
[2017-06-12] MEDS: FERROUS SULFATE 325 MG TAB PO SCH (09:07)
[2017-06-12] MEDS: GABAPENTIN 300 MG CAP PO SCH ×3 (09:07→22:36)
[2017-06-12] MEDS: ESCITALOPRAM 20 MG TAB PO SCH (09:07)
[2017-06-12] MEDS: PRAMIPEXOLE 0.5 MG TAB PO SCH ×3 (09:08→22:34)
[2017-06-12] MEDS: DRONABINOL 2.5 MG CAP PO SCH ×2 (09:09→17:42)
[2017-06-12] MEDS: amLODIPine 5 MG TAB PO SCH (10:04)
[2017-06-12] MEDS: ATORVASTATIN 40 MG TAB PO SCH (22:34)
[2017-06-12] MEDS: CARBIDOPA-LEVODOPA 25-100 MG 1 EACH TAB PO SCH (22:35)
--- NOTE | 2017-06-13 01:42 | P.PN ---
Subjective Progress Note Date: 06/12/17 Principal diagnosis: Hypoxic respiratory failure and hypotension This 71-year-old male with a known history of metastatic lung cancer with metastases to brain and hip, history of right renal cell cancer with nephrectomy and chemoradiation, hypertension, hyperlipidemia and memory impairment and Parkinson's disease and other multiple medical problems was brought to the hospital due to hypoxia and generalized weakness and fatigue while he was at his oncologist office.The states that over the last few days she has noticed that his been increasingly more fatigued. He did have a fall a couple of days ago but she was able to catch him. She states that he did not have any head injury at that time. Since then he's been more weak and having difficult with ambulation. She is also noted that he's been little bit more short of breath and states that his chronic cough seems to be worsening. Occasionally he will spit up some phlegm. She states these felt warm at home however has not documented any fevers. The patient was over at [facility] and was about to get radiation treatment when he noted that he was hypoxic at 80%. He was sent to the emergency department for further evaluation. The patient does not add much to the history. Denies any pain. States that he does not feel short of breath at this time. Chest x-ray negative. CT of the head showed left occipital metastasis however appeared unchanged from previous and there is some vasogenic edema but appears unchanged area did Patient was given a dose of Solu-Medrol 125 mg in the ER. Unlikely pulmonary embolism. His saturations became normal after breathing treatments and steroids. Currently patient is saturating well on room air. Pt. is a poor historian due to underlying dementia. Complete review of systems could not be up drain from the patient. The history was taken from the medical records and family at bedside. 06/09/2017 Patient is more awake and oriented today. Patient is undergoing radiation radiation today. Otherwise no fever no chills. Not able tolerate oral diet very well due to poor appetite. No fever no chills. No chest pain or shortness of breath. Anticipate discharge next 24 hours or after radiotherapy 06/10/2017 Patient is awake and oriented. Otherwise patient having very poor oral intake. Started on Marinol. As well as protein milkshakes were ordered.. Patient does have increased creatinine level today and volume depletion. Slightly hyperkalemic. Discussed with his at bedside in detail. We'll continue the one-to-one feeding and follow closely. Repeat labs in a.m. Anticipate discharge home with home care or rehab. 06/11/2017 Patient is awake and alert and oriented. Blood pressure is stable. Otherwise oral intake slightly improved. Continued on IV fluids. Patient does have improvement in renal function and hyperkalemia resolved. Anticipate discharged to home with home care are rehab tomorrow. 06/12/2017 Patient is awake alert but seems to be lethargic. Blood pressure is fairly stable. Otherwise patient is having very poor oral intake. Slightly improved with the one-to-one feeding. Otherwise patient did receive palliative radiation 2 days back. Upon extensive discussion with his at bedside she wants to discuss with the hospice care possibly tomorrow. No complaints of nausea vomiting or abdominal pain. No chest pain no short of breath. No fever no chills. All other review of systems negative except as above Current medications reviewed Objective - Vital Signs Vital signs: Vital Signs Temp 98.4 F 06/12/17 07:30 Pulse 92 06/12/17 15:56 Resp 16 06/12/17 19:46 BP 146/67 06/12/17 07:30 Pulse Ox 94 L 06/12/17 08:24 Intake & Output 06/12/17 06/12/17 06/13/17 06:59 18:59 06:59 Intake Total 360 562.5 Balance 360 562.5 Weight 65.771 kg Intake: Intake, IV Titration 562.5 Amount Sodium Chloride 0.9% 1, 562.5 000 ml @ 75 mls/hr IV . [id number] [facility] Rx#:[id number] Oral 360 Other: Voiding Method Toilet Toilet Toilet # Voids 3 2 - Exam PHYSICAL EXAMINATION: Patient is lying in the bed comfortably, no acute distress, awake alert and oriented. But seems very lethargic, able to communicate HEENT: Normocephalic. Neck is supple. Pupils reactive. Nostrils clear. Oral cavity is moist. Ears reveal no drainage. Neck reveals no JVD, carotid bruits, or thyromegaly. CHEST EXAMINATION: Trachea is central. Symmetrical expansion. Lung fischer clear to auscultation and percussion. CARDIAC: Normal S1, S2 with no gallops. No murmurs ABDOMEN: Soft. Bowel sounds normal. No organomegaly. No abdominal bruits. Extremities: reveal no edema. No clubbing or cyanosis Neurologically awake, alert, oriented x3 with well-coordinated movements. No focal deficits noted Skin: No rash or skin lesions. Psychiatric: Cooperative. Nonsuicidal Musculoskeletal: No joint swelling or deformity. Normal range of motion. - Labs CBC & Chem 7: 06/11/17 07:01 06/11/17 07:01 Labs: Microbiology - Last 24 Hours (Table) 06/07/17 16:18 Blood Culture - Preliminary Blood No Growth after 120 hours Assessment and Plan Assessment: Acute hypoxic and hypercapnic respiratory failure likely due to bronchospasm and possible underlying COPD with exacerbation. On admission. resolved now. Metastatic lung cancer with metastases to brain and hip. Currently undergoing radiation last on 06/10/2017 Generalized weakness Poor oral intake Hypovolemic hyponatremia Acute kidney injury most likely prerenal Mild hyperkalemia due to acute kidney injury History of right nephrectomy due to renal cell cancer status post chemoradiation Hypertension Hyperlipidemia Memory impairment and Parkinson's disease Peripheral vascular disease bilateral leg stents History of CVA/TIA Previous history of smoking DVT prophylaxis Plan: Patient will be continued on breathing treatments and encourage oral intake. Continue with dexamethasone due to vasogenic edema in the brain. Continue the home medications and follow closely. Radiation done on 06/10/2017 Discussed with family at bedside in detail. Further recommendations based on the clinical course. Anticipate discharge next 24 hours likely home with hospice care.. Patient is currently saturating well on room air. Time with Patient: Greater than 30
[2017-06-13] MEDS: IPRATROPIUM-ALBUTEROL 3 ML NEB INHALATION SCH ×2 (07:08→10:45)
[2017-06-13] MEDS: BUDESONIDE 0.5 MG/2 ML NEBU INHALATION SCH (07:08)
[2017-06-13 07:37] VITALS: BP 126/66; TEMP 98.6
[2017-06-13] MEDS: PRAMIPEXOLE 0.5 MG TAB PO SCH (08:58)
[2017-06-13] MEDS: HEPARIN SODIUM,PORCINE 5,000 UNIT/ML 1 ML VIAL SQ SCH (08:58)
[2017-06-13] MEDS: DRONABINOL 2.5 MG CAP PO SCH (08:58)
[2017-06-13] MEDS: DEXAMETHASONE 2 MG TAB PO SCH (08:58)
[2017-06-13] MEDS: levETIRAcetam 500 MG TAB PO SCH (08:59)
[2017-06-13] MEDS: MEMANTINE 10 MG TAB PO SCH (08:59)
[2017-06-13] MEDS: GABAPENTIN 300 MG CAP PO SCH (08:59)
[2017-06-13] MEDS: FERROUS SULFATE 325 MG TAB PO SCH (08:59)
[2017-06-13] MEDS: amLODIPine 5 MG TAB PO SCH (08:59)
[2017-06-13] MEDS: ESCITALOPRAM 20 MG TAB PO SCH (08:59)
[2017-06-13] MEDS: CARBIDOPA-LEVODOPA 25-100 MG 1 EACH TAB PO SCH (09:00)
[2017-06-13] MEDS: ASPIRIN 81 MG PO SCH (09:00)
[2017-06-13 10:56] VITALS: PULSE 88
[2017-06-13] MEDS: SODIUM CHLORIDE 0.9% 1,000 ML IV SCH (11:11)
--- NOTE | 2017-06-13 13:06 | DS ---
DISCHARGE SUMMARY FINAL DIAGNOSES: 1. Chronic obstructive pulmonary disease acute exacerbation with acute hypercapnic hypoxic respiratory failure. 2. Metastatic lung cancer with metastasis to the brain and hip. 3. Generalized weakness. 4. Poor oral intake. 5. Hypertension. 6. Hyperlipidemia. 7. Memory impairment with Parkinson disease. 8. NO CODE, NO CPR, NO VENT. 9. Hospice measures and comfort measures. DISCHARGE DISPOSITION: The patient will be discharged in stable condition with guarded prognosis. Time taken 35 minutes. Patient will be transferred to [facility]. HISTORY OF PRESENT ILLNESS: This 71-year-old gentleman with a past medical history of multiple medical problems was admitted with COPD and metastatic lung cancer with multiple complex medical issues. Patient was treated initially, but because of lack of improvement case was discussed with Hematology/Oncology, family and decided to continue with hospice care. The patient will be transitioned to hospice. Once again, the prognosis remained extremely guarded throughout the hospital stay. The discharge advice and medications are as follows: 1. Atropine drops 1% p.r.n. 2. Sinemet 25-100 one p.o. t.i.d. p.r.n. 3. Lexapro 20 mg daily. 4. Neurontin 300 mg t.i.d. 5. [place] 5 mg q.4 p.r.n. 6. Keppra 500 mg b.i.d. 7. Ativan 1 mg q.4 p.r.n. 8. Mirapex 0.5 p.o. t.i.d. Follow up with Dr. Pretty or hospice p.r.n. MMISH / HARJEET: [id number] /
== END 2017-06-13 14:28 | disposition hospice, home (50) | DRG 189 ==
LOC: EC 15:49 → 5MS5E 18:43 → 5ONC 06-08 15:28
PROVIDERS: ADMIT Internal Medicine; ATTEND Internal Medicine
DX: J96.02 Acute respiratory failure with hypercapnia (principal); G93.6 Cerebral edema; J44.1 Chronic obstructive pulmonary disease with (acute) exacerbation; E87.1 Hypo-osmolality and hyponatremia; N17.9 Acute kidney failure, unspecified; C79.51 Secondary malignant neoplasm of bone; C79.31 Secondary malignant neoplasm of brain; C34.90 Malignant neoplasm of unspecified part of unspecified bronchus or lung; J96.01 Acute respiratory failure with hypoxia; I10 Essential (primary) hypertension; E78.5 Hyperlipidemia, unspecified; G20 Parkinson's disease; F32.9 Major depressive disorder, single episode, unspecified; I73.9 Peripheral vascular disease, unspecified; F41.9 Anxiety disorder, unspecified; F17.200 Nicotine dependence, unspecified, uncomplicated; F03.90 Unspecified dementia, unspecified severity, without behavioral disturbance, psychotic disturbance, mood disturbance, and anxiety; Z51.5 Encounter for palliative care; E87.5 Hyperkalemia; J98.01 Acute bronchospasm; I95.9 Hypotension, unspecified; E86.9 Volume depletion, unspecified; Z88.8 Allergy status to other drugs, medicaments and biological substances; Z85.528 Personal history of other malignant neoplasm of kidney; Z92.21 Personal history of antineoplastic chemotherapy; Z86.73 Personal history of transient ischemic attack (TIA), and cerebral infarction without residual deficits; Z92.3 Personal history of irradiation; Z88.6 Allergy status to analgesic agent; Z90.5 Acquired absence of kidney; Z91.041 Radiographic dye allergy status; Z79.899 Other long term (current) drug therapy; Z79.891 Long term (current) use of opiate analgesic; Z79.82 Long term (current) use of aspirin; Z82.49 Family history of ischemic heart disease and other diseases of the circulatory system
CPT/HCPCS: 36415; 70450; 71046; 77387; 77412; 80048; 80053; 81003; 82550; 82553; 82803; 83605; 83735; 83880; 84484; 85025; 85610; 85730; 87040; 93005; 94640; 94760; 96374; 99285